=== PATIENT | female | born 1965 | race Caucasian/White ===

== ENCOUNTER 2021-10-05 09:56 | Outpatient (RCR) | payer OTHER, SELFPAY ==
--- NOTE | 2021-10-05 12:33 | PTOPEVAL ---
Thank you for referring Janell Schwab to [facility].? The patient is scheduled to be seen for therapy? 2x/week for 12 visits. Please review, sign, date and return this plan of care ONEIL. I agree with and certify that the following plan of care is medically necessary. Referring Physician Date Admitting Provider: Attending Provider: Octavia Hernadnez NP Referring Provider: *PT Outpatient Evaluation Start: 10/05/21 09:05 Freq: Status: Active Protocol: Document 10/05/21 09:06 [facility] (Rec: 10/05/21 12:26 [facility] [id number]) Therapy Assessment Status Assessment Status Assessment Status Evaluation Evaluation Information Problem Diagnosis Pain in R leg Onset 04/15/21 Subjective Information Pt reports that in April, Query Text:As Reported By Patient/ she was in a hotel for work Family where the toilet overflowed. Her right leg slipped in the water and she noticed a pop and pain right away, however, minimal swelling. Xrays showed no fractures but she is concerned for some kind of muscle or soft tissue injury. She reports near constant pain that increases with motion, especially when walking, using stairs, getting up from sitting, or rotating on her knee while standing. She reports this pain in her lateral knee with occasional pain into her hip. Also reports occasional clicking in knee that is new since the injury. Occasionally interrupts sleep, and generally feels worse at night when she has been on her feet all day. Reports history of FM. Reports it is slightly better from start. Likes to walk with dogs and work out in her spare time. Would like to be able to return to these activities as well as be able to wear high heels again. 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
--- NOTE | 2021-11-07 12:54 | PTOPEVAL ---
Thank you for referring Janell Schwab to [facility].? The patient is scheduled to be seen for therapy? 1-2x/week for 7 visits. Please review, sign, date and return this plan of care ONEIL. I agree with and certify that the following plan of care is medically necessary. Referring Physician Date Admitting Provider: Attending Provider: Octavia Hernandez NP Referring Provider: *PT Outpatient Evaluation Start: 10/05/21 09:05 Freq: Status: Active Protocol: Document 11/07/21 10:03 [facility] (Rec: 11/07/21 12:53 [facility] [id number]) Therapy Assessment Status Assessment Status Assessment Status Progress Evaluation Information Problem Diagnosis Pain in R leg Onset 04/15/21 Subjective Information Pt reports she has continued Query Text:As Reported By Patient/ soreness in her R leg. Usually Family her soreness after each session is pretty short-lived, but after this most recent session it lasted all weekend. She is still waiting on getting an MRI done. Pain Assessment Timing of Pain Assessment Timing of Pain Assessment Pre-Treatment Pain Scale Pain Scale Used Numeric (1 - 10) Self Report Pain Assessment Right Knee(s) Reported Pain Level 5 Pain Score Pain Score 5: Self Report Interventions Used Interventions Used By Clinicians Activity or ADL's,Education, Exercise Lower Extremity Range of Motion General Lower Extremity Range of Motion Gross Lower Extremity Range of Motion L knee AROM: 0- 134 Comments R knee AROM: 0 -126 Lower Extremity Muscle Strength Testing General Lower Extremity Strength Gross Lower Extremity Strength Bilateral hip flexion: 4+/5 L knee extension: 5/5 R knee extension: 4+/5, slightly painful L knee flexion: 5/5 R knee flexion: 4+/5 Bilateral ankle dorsiflexion: 5/5 L ankle plantarflexion: 15 reps R ankle plantarflexion: 10 reps, painful L hip abd: 4+/5 R hip abd: 4+/5, painful Bilateral hip ext: 4+/5 Palpation Assessment Palpation Palpation TTP and hypertonicity R TFL and ITB Lumbar P-A's L1-S1 normal Special Tests-Lower Extremity Knee Special Tests Anterior
== END 2021-12-01 14:43 | disposition home or self-care (01) ==
LOC: CHSPT 09:56
PROVIDERS: PCP Nurse Practitioner Family; Visit Provider Nurse Practitioner Family
DX: M79.604 Pain in right leg (principal)
CPT/HCPCS: 97110; 97140; 97161; 97530

== ENCOUNTER 2021-10-30 10:51 | Outpatient (CLI) | payer OTHER, SELFPAY ==
--- NOTE | ~2021-10-30 | MM_ITS ---
EXAMINATION: MM scrn ponce implant BI w meliza HISTORY: Screening mammogram TECHNIQUE: Craniocaudal and mediolateral oblique 3-D tomosynthesis images with implant displacement a nd synthetic 2-D images were generated. Craniocaudal and mediolateral oblique views of the breasts wi thout implant displacement were obtained using full field digital mammography. CAD analysis was submi tted and interpreted. COMPARISON: No prior mammogram is available for comparison at this institution. BREAST PARENCHYMAL COMPOSITION: There are scattered areas of fibroglandular density. FINDINGS: There are asymmetries in the subareolar location of both breasts. There is no evidence of s uspicious mass, calcification, or architectural distortion to suggest malignancy in either breast. Th ere has been no suspicious interval change. IMPRESSION: 1. Bilateral subareolar asymmetries. 2. Additional mammographic views and possible breast ultrasound are recommended. BI-RADS Category 0: Incomplete: Needs additional imaging evaluation. Reviewed, dictated and finalized at location A. IMPRESSION: 1. Bilateral subareolar asymmetries. 2. Additional mammographic views and possible breast ultrasound are recommended . BI-RADS Category 0: Incomplete: Needs additional imaging evaluation.
== END 2021-10-30 10:52 | disposition home or self-care (01) ==
LOC: CHSIMG 10:54
PROVIDERS: PCP Nurse Practitioner Family; Visit Provider Nurse Practitioner Family
DX: Z12.31 Encounter for screening mammogram for malignant neoplasm of breast (principal)
CPT/HCPCS: 77063; 77067

== ENCOUNTER 2021-11-02 09:24 | Outpatient (CLI) | payer OTHER, SELFPAY ==
--- NOTE | ~2021-11-02 | MMUS_ITS ---
EXAMINATION: MM diag ponce implant BI w meliza, US breast BI limited HISTORY: Follow-up breast asymmetries TECHNIQUE: Additional 3-D tomosynthesis images of the breasts were performed and synthetic 2-D images were generated. CAD analysis was submitted and interpreted. High resolution limited bilateral breast ultrasound was performed. COMPARISON: 10/30/2021 BREAST PARENCHYMAL COMPOSITION: Breast composed of scattered areas of fibroglandular density FINDINGS: MAMMOGRAPHIC FINDINGS: There are no suspicious masses, calcifications or architectural distortion in either breast to sugges t malignancy. ULTRASOUND: Limited bilateral breast ultrasound: In the subareolar location of the right breast there is a 4 mm c yst. In the left breast at 10:00, 2 cm from the nipple there is a 4 mm cyst. No suspicious masses in either breast to suggest malignancy. IMPRESSION: 1. No evidence for malignancy in either breast. 2. Routine yearly screening mammogram and regular clinical breast examination are recommended. BI-RADS Category 2: Benign finding(s). Reviewed, dictated and finalized at location L. IMPRESSION: 1. No evidence for malignancy in either breast. 2. Routine yearly screening mammogram and regular clinical breast examination a re recommended. BI-RADS Category 2: Benign finding(s).
== END 2021-11-02 09:25 | disposition home or self-care (01) ==
PROVIDERS: PCP Nurse Practitioner Family; Visit Provider Nurse Practitioner Family
DX: Z12.31 Encounter for screening mammogram for malignant neoplasm of breast (principal)
CPT/HCPCS: 76642; 77062; 77066; G0279

== ENCOUNTER 2021-11-08 10:41 | Outpatient (CLI) | payer OTHER, SELFPAY ==
--- NOTE | ~2021-11-08 | XR_ITS ---
XR knee RT 3V 11/08/2021 11:11 Indication: Right knee pain Procedure: 4 views right knee Comparison: No prior studies for comparison. Findings: There is tricompartment osteoarthritis of the right knee, most advanced in the patellofemor al compartment. No fracture, subluxation or dislocation. No significant joint effusion. No foreign jerald dies. Impression: 1: Tricompartment osteoarthritis of the right knee. Reviewed, dictated and finalized at location L. Impression: 1: Tricompartment osteoarthritis of the right knee.
== END 2021-11-08 10:42 | disposition home or self-care (01) ==
LOC: CHSIMG 10:43
PROVIDERS: PCP Nurse Practitioner Family; Visit Provider Nurse Practitioner Family
DX: M79.604 Pain in right leg (principal)
CPT/HCPCS: 73562

== ENCOUNTER 2021-11-15 10:35 | Outpatient (CLI) | payer OTHER, SELFPAY ==
[2021-11-15 10:44] LABS: Basophils Absolute Auto 0.07 K/mm3 (0.00-0.10); Eosinophils Absolute Auto 0.23 K/mm3 (0.02-0.50); Eosinophils Percent Auto 3.1 % (1.0-6.0); Hematocrit 42.2 % (35.0-49.0); Hemoglobin 13.3 g/dL (12.0-15.0); Immature Granulocyte Absolute 0.01 K/mm3 (0.00-0.00); Immature Granulocyte Percent A 0.1 % (0.0-0.0); Lymphocytes Absolute Auto 2.38 K/mm3 (1.10-4.50); Lymphocytes Percent Auto 32.6 % (18.0-42.0); Mean Corpuscular HGB Conc 31.5 g/dL (32.0-36.0); Mean Corpuscular Hemoglobin 26.7 pg (27.0-31.0); Mean Corpuscular Volume 84.7 fL (78.0-102.0); Mean Platelet Volume 10.2 fl (9.2-11.8); Monocytes Absolute Auto 0.42 K/mm3 (0.10-0.90); Monocytes Percent Auto 5.7 % (2.0-11.0); Neutrophils Absolute Auto 4.2 K/mm3 (1.7-7.2); Neutrophils Percent Auto 57.5 % (50.0-70.0); Platelet Count Result 348 K/mm3 (150-420); Red Blood Count 4.98 M/mm3 (4.20-5.40); Red Cell Distribution Width 13.4 % (11.6-14.4); White Blood Count 7.3 K/mm3 (4.8-10.8)
[2021-11-15 11:20] LABS: Alanine Aminotransferase 20 U/L (14-59); Albumin Level 3.7 g/dL (3.4-5.0); Alkaline Phosphatase 82 U/L (46-116); Anion Gap 10 mmol/L (8-16); Aspartate Amino Transferase 12 U/L (15-37); Bilirubin,Total 0.2 mg/dL (0.00-1.00); Blood Urea Nitrogen 22 mg/dL (7-18); Calcium 9.2 mg/dL (8.5-10.1); Carbon Dioxide 28 mmol/L (21-32); Chloride 105 mmol/L (98-108); Cholesterol 208 mg/dL (0-200); Estimated Glomerular Filt Rate 55; Glucose 101 mg/dL (70-99); HDL Direct 61 mg/dL (40-60); LDL Cholesterol Calculated 130 mg/dL (<130); Osmolality Calculated 299 mOsm/kg (285-295); Potassium 4.4 mmol/L (3.5-5.1); Sodium 143 mmol/L (136-145); Total Protein 6.9 g/dL (6.4-8.2); Triglycerides 87 mg/dL (0-150)
== END 2021-11-15 10:36 | disposition home or self-care (01) ==
LOC: CHSLAB 10:36
PROVIDERS: PCP Nurse Practitioner Family; Visit Provider Nurse Practitioner Family
DX: I10 Essential (primary) hypertension (principal)
CPT/HCPCS: 36415; 80053; 80061; 85025

== ENCOUNTER 2022-02-01 07:27 | Outpatient (CLI) | payer OTHER, SELFPAY ==
--- NOTE | ~2022-02-01 | XR_ITS ---
EXAMINATION: XR shoulder RT min 2V INDICATION: Right shoulder pain TECHNIQUE: Four views of the right shoulder are submitted. COMPARISON: None FINDINGS: Normal alignment. No fracture. Glenohumeral and acromioclavicular joint spaces are normal. Soft tissues are unremarkable. IMPRESSION: 1. No acute osseous abnormality. Reviewed, dictated and finalized at location B.
--- NOTE | ~2022-02-01 | MR_ITS ---
EXAMINATION: MR knee RT wo con DATE: 02/01/2022 08:38 INDICATION: Right knee pain. TECHNIQUE: Magnetic resonance imaging (MRI) of the right knee was performed without intravenous contr ast. Sequences included axial PD-weighted FS FSE, coronal PD-weighted FSE and PD-weighted FS FSE, sag ittal PD-weighted FSE, and sagittal T2-weighted FS FSE. COMPARISON: Right knee radiographs 11/08/2021 FINDINGS: Medial compartment: There is a radial tear of posterior horn of medial meniscus. There is shallow partial-thickness carti haris loss of tibial condyle. There is shallow partial-thickness cartilage loss of femoral condyle, wo rst at the central articular surface. Osteophytes are noted. Lateral compartment: Lateral meniscus is normal. There is cartilage surface irregularity of femoral condyle and tibial con dyle. Osteophytes are noted. Patellofemoral compartment: There is full-thickness cartilage loss of patellar lateral facet and median ridge with mild subchondr al edema-like marrow signal intensity. There is partial-thickness cartilage loss of patellar medial f acet. There is full-thickness cartilage loss of lateral trochlea with mild subchondral edema-like mar row signal intensity. There is partial-thickness cartilage loss of central and medial trochlea. Osteo phytes are noted. Ligaments and tendons: Anterior cruciate ligament is normal. There are changes of prior sprain of posterior cruciate ligamen t characterized by increased signal intensity. There are changes of prior sprains of medial collatera l ligament and fibular collateral ligament characterized by increased signal intensity proximally. Th ere is mild patellar tendinopathy. Fluid: There is a small knee joint effusion. There is trace fluid in a Crocker's cyst. There is mild prepatell ar and superficial infrapatellar bursitis. IMPRESSION: 1. Severe chondrosis of patellofemoral compartment and mild chondrosis of medial and lateral compartm ents. 2. Tear of medial meniscus. Reviewed, dictated and finalized at location A. IMPRESSION: 1. Severe chondrosis of patellofemoral compartment and mild chondrosis of media l and lateral compartments. 2. Tear of medial meniscus.
== END 2022-02-01 07:28 | disposition home or self-care (01) ==
LOC: CHSIMG 07:28
PROVIDERS: PCP Family Medicine; Visit Provider Family Medicine
DX: M25.511 Pain in right shoulder (principal); M25.561 Pain in right knee
CPT/HCPCS: 73030; 73721

== ENCOUNTER 2022-02-12 09:48 | Outpatient (RCR) | payer OTHER, SELFPAY ==
--- NOTE | 2022-02-12 11:34 | PTOPEVAL1 ---
Assessment and note entered by Zully Morris DPT Evaluation Information Assessment Status Evaluation Diagnosis R shoulder pain Onset 02/05/2022 Subjective Information Pt reports that her R shoulder pain started when she fell from her knee pain. She fell on her shoulder and started having pain and pops in her shoulder. She has difficulty with sleeping on her R shoulder and reaching behind or overhead. She reports a lot clicking/cracking and pain. Pt reports some numbness/tingling in her R hand ( whole hand). Pt reports weakness especially when lifting objects like groceries. Pt reports that pain does not matter on time of day. Reported Pain Level Pain Score 5: Self Report Assessment PT Clinical Summary Pt presents to physical therapy with R shoulder pain, decreased mobility, and decreased strength. She presents with signs and symptoms consistent with potential differential diagnosis of shoulder impingement syndrome or labral involvement. 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 She was provided with an HEP focused on improving mobility and strength within her tolerance. She will benefit from skilled PT to facilitate symptom relief, improve the aforementioned impairments, and return to functional and recreational activities. Plan of Care Interventions Electrical Stimulation,Hot Pack/Cold Pack,Manual Therapy,Patient/Caregiver Educati,Therapeutic Activities,Therapeutic Exercise PT Services Indicated Yes Treatment Frequency and 2x week for 8 visits Duration These treatments will address the objective and functional deficits as defined above. The patient will be advanced safely and appropriately in order for the patient to progress towards his/her prior level of function. Additional exercises will be introduced and as well as a comprehensive home exercise program upon discharge, if needed, ?to ensure carryover of functional gains achieved in the clinic. This treatment plan has been reviewed and agreement upon by the patient.
== END 2022-03-12 23:59 | disposition home or self-care (01) ==
LOC: CHSPT 09:48
PROVIDERS: PCP Family Medicine; Visit Provider Family Medicine
DX: M25.511 Pain in right shoulder (principal)
CPT/HCPCS: 97014; 97110; 97140; 97161; G0283

== ENCOUNTER 2022-03-28 13:02 | Outpatient (CLI) | payer OTHER, SELFPAY ==
--- NOTE | ~2022-03-28 | XR_ITS ---
Clinical Indication: Preoperative evaluation, covid 19 infection PA and lateral views of the chest: Comparison: None Findings: The lungs are clear, without evidence of focal consolidation or pleural effusion. Cardiome diastinal silhouette is within normal limits. Cervical spine fixation hardware noted. Impression: Clear lungs. 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
[2022-03-28 13:16] LABS: Basophils Absolute Auto 0.06 K/mm3 (0.00-0.10); Basophils Percent Auto 0.8 % (0.0-1.0); Eosinophils Absolute Auto 0.27 K/mm3 (0.02-0.50); Eosinophils Percent Auto 3.6 % (1.0-6.0); Hematocrit 37.4 % (35.0-49.0); Immature Granulocyte Absolute 0.03 K/mm3 (0.00-0.00); Immature Granulocyte Percent A 0.4 % (0.0-0.0); Lymphocytes Percent Auto 29.1 % (18.0-42.0); Mean Corpuscular HGB Conc 32.1 g/dL (32.0-36.0); Mean Corpuscular Hemoglobin 26.4 pg (27.0-31.0); Mean Corpuscular Volume 82.4 fL (78.0-102.0); Mean Platelet Volume 10.1 fl (9.2-11.8); Monocytes Percent Auto 5.3 % (2.0-11.0); Neutrophils Absolute Auto 4.6 K/mm3 (1.7-7.2); Neutrophils Percent Auto 60.8 % (50.0-70.0); Platelet Count Result 304 K/mm3 (150-420); Red Blood Count 4.54 M/mm3 (4.20-5.40); Red Cell Distribution Width 13.5 % (11.6-14.4); White Blood Count 7.6 K/mm3 (4.8-10.8)
[2022-03-28 13:28] LABS: Add Urine Microscopic? YES; Appearance Urine Clear (Clear); Bilirubin Urine Negative (Negative); Blood Urine 1+ (Negative); Color Urine Yellow (Yellow); Glucose Urine UA Negative (Negative); Ketones Urine Negative (Negative); Leukocyte Esterase Ur Negative LEU/UL (Negative); Nitrate Urine Negative (Negative); Protein Urine Negative (Negative); Specific Grav Ur >= 1.030 (1.010-1.020); Urobilinogen Urine 0.2 mg/dL (0.2-1.0)
[2022-03-28 13:38] LABS: Squamous Epithelial Cell Urine Moderate /hpf (Few); WBC Urine None seen /hpf (0-3)
[2022-03-28 13:39] LABS: Bacteria Urine 1+ /hpf
[2022-03-28 14:04] LABS: Alanine Aminotransferase 21 U/L (14-59); Albumin Level 3.5 g/dL (3.4-5.0); Alkaline Phosphatase 82 U/L (46-116); Anion Gap 7 mmol/L (8-16); Aspartate Amino Transferase 17 U/L (15-37); Bilirubin,Total 0.1 mg/dL (0.00-1.00); Blood Urea Nitrogen 26 mg/dL (7-18); Calcium 8.8 mg/dL (8.5-10.1); Carbon Dioxide 29 mmol/L (21-32); Chloride 105 mmol/L (98-108); Cholesterol 205 mg/dL (0-200); Estimated Glomerular Filt Rate 59; Glucose 105 mg/dL (70-99); HDL Direct 52 mg/dL (40-60); LDL Cholesterol Calculated 110 mg/dL (<130); NT Pro B Type Natriuretic Pept 76 pg/mL (0-125); Osmolality Calculated 296 mOsm/kg (285-295); Potassium 4.5 mmol/L (3.5-5.1); Sodium 141 mmol/L (136-145); Total Protein 6.6 g/dL (6.4-8.2); Triglycerides 215 mg/dL (0-150)
== END 2022-03-28 13:03 | disposition home or self-care (01) ==
LOC: CHSLAB 13:04
PROVIDERS: PCP Family Medicine; Visit Provider Nurse Practitioner Family
DX: Z01.818 Encounter for other preprocedural examination (principal)
CPT/HCPCS: 36415; 71046; 80053; 80061; 81001; 83880; 85025

== ENCOUNTER 2022-05-21 15:14 | Outpatient (RCR) | payer BC, SELFPAY ==
--- NOTE | 2022-05-21 16:05 | PTOPEVAL1 ---
Assessment and note entered by Kenny Sanabria Evaluation Information Assessment Status Evaluation Diagnosis s/p right knee arthroscopy Onset 05/10/22 Subjective Information Pt. reports that she underwent knee scope on . She states that she was on her feet a lot yesterday and increased her pain. She reports that prior to surgery her ability to go up and down stairs was declining. She reports that her job requires her to be at a desk mostly, but she is required to travel on occasion. She reports that she cannot currently walk a significant distance and requires a cane with ambulation. She reports that her goal is to walk normally and get rid of her cane. Reported Pain Level Pain Score 6: Self Report Assessment PT Clinical Summary Pt. is a 56 year old female who enters the clinic 10 days post right knee arthroscopy. She presents with impaired gait, impaired l.e. strength, impaired ROM and pain on on this date. Continued skilled PT is indicated in order to improve these areas to allow the pt. to be able to complete all IADL's with improved comfort and efficiency. Plan of Care Interventions Electrical Stimulation,Gait Training,Hot Pack/Cold Pack,Manual Therapy,Neuro Re-education, Therapeutic Activities,Therapeutic Exercise PT Services Indicated Yes Treatment Frequency and 2x/week x 12 visits Duration These treatments will address the objective and functional deficits as defined above. The patient will be advanced safely and appropriately in order for the patient to progress towards his/her prior level of function. Additional exercises will be introduced and as well as a comprehensive home exercise program upon discharge, if needed, ?to ensure carryover of functional gains achieved in the clinic. This treatment plan has been reviewed and agreement upon by the patient.
== END 2022-05-28 15:10 | disposition home or self-care (01) ==
LOC: CHSPT 15:14
PROVIDERS: Visit Provider Orthopaedic Surgery
DX: M70.61 Trochanteric bursitis, right hip (principal); M17.11 Unilateral primary osteoarthritis, right knee; M76.31 Iliotibial band syndrome, right leg; S83.231D Complex tear of medial meniscus, current injury, right knee, subsequent encounter; Z98.890 Other specified postprocedural states
CPT/HCPCS: 97014; 97110; 97161; G0283

== ENCOUNTER 2022-08-08 09:35 | Outpatient (CLI) | payer OTHER, BC, SELFPAY ==
[2022-08-08 09:50] LABS: Hematocrit 38.3 % (35.0-49.0); Hemoglobin 12.2 g/dL (12.0-15.0); Mean Corpuscular HGB Conc 31.9 g/dL (32.0-36.0); Mean Corpuscular Hemoglobin 26.7 pg (27.0-31.0); Mean Corpuscular Volume 83.8 fL (78.0-102.0); Mean Platelet Volume 10.3 fl (9.2-11.8); Platelet Count Result 303 K/mm3 (150-420); Red Blood Count 4.57 M/mm3 (4.20-5.40); Red Cell Distribution Width 13.9 % (11.6-14.4); White Blood Count 7.4 K/mm3 (4.8-10.8)
[2022-08-08 10:25] LABS: Thyroid Stimulating Hormone Reflex 3.03 u/IU/mL (0.36-3.74)
[2022-08-08 10:39] LABS: Alanine Aminotransferase 19 U/L (14-59); Albumin Level 3.7 g/dL (3.4-5.0); Alkaline Phosphatase 100 U/L (46-116); Anion Gap 6 mmol/L (8-16); Aspartate Amino Transferase 14 U/L (15-37); Bilirubin,Total 0.2 mg/dL (0.00-1.00); Blood Urea Nitrogen 23 mg/dL (7-18); Carbon Dioxide 30 mmol/L (21-32); Chloride 104 mmol/L (98-108); Estimated Glomerular Filt Rate > 60; Folic Acid 8.5 ng/mL (8.6->20); Glucose 103 mg/dL (70-99); Osmolality Calculated 293 mOsm/kg (285-295); Potassium 4.2 mmol/L (3.5-5.1); Sodium 140 mmol/L (136-145); Total Protein 6.9 g/dL (6.4-8.2); Vitamin B12 584 pg/mL (193-986)
== END 2022-08-08 09:36 | disposition home or self-care (01) ==
LOC: CHSLAB 09:37
PROVIDERS: PCP Family Medicine; Visit Provider Family Medicine
DX: E11.9 Type 2 diabetes mellitus without complications (principal); E53.8 Deficiency of other specified B group vitamins; R53.83 Other fatigue
CPT/HCPCS: 36415; 80053; 82607; 82746; 84443; 85027

== ENCOUNTER 2023-07-26 12:23 | Outpatient (CLI) | payer OTHER, SELFPAY | END 2023-07-26 12:24 | disposition home or self-care (01) | LOC: CHSLAB 12:25 | PROVIDERS: PCP Family Medicine; Visit Provider Family Medicine | DX: K52.9 Noninfective gastroenteritis and colitis, unspecified (principal) | CPT/HCPCS: 87177; 87209 ==

== ENCOUNTER 2023-07-31 14:05 | Outpatient (CLI) | payer BC, OTHER, SELFPAY ==
[2023-07-31 14:25] LABS: Basophils Absolute Auto 0.03 K/mm3 (0.00-0.10); Basophils Percent Auto 0.4 % (0.0-1.0); Eosinophils Percent Auto 2.7 % (1.0-6.0); Hematocrit 38.3 % (35.0-49.0); Immature Granulocyte Absolute 0.03 K/mm3 (0.00-0.00); Immature Granulocyte Percent A 0.4 % (0.0-0.0); Lymphocytes Absolute Auto 1.74 K/mm3 (1.10-4.50); Lymphocytes Percent Auto 23.5 % (18.0-42.0); Mean Corpuscular HGB Conc 31.3 g/dL (32-36); Mean Corpuscular Volume 82.9 fL (78.0-102.0); Mean Platelet Volume 9.9 fl (9.2-11.8); Monocytes Absolute Auto 0.34 K/mm3 (0.10-0.90); Monocytes Percent Auto 4.6 % (2.0-11.0); Neutrophils Absolute Auto 5.05 K/mm3 (1.70-7.20); Neutrophils Percent Auto 68.4 % (50.0-70.0); Platelet Count Result 318 K/mm3 (150-420); Red Blood Count 4.62 M/mm3 (4.20-5.40); Red Cell Distribution Width 14.3 % (11.6-14.4); White Blood Count 7.4 K/mm3 (4.8-10.8)
[2023-07-31 15:25] LABS: Thyroid Stimulating Hormone Reflex 2.06 u/IU/mL (0.36-3.74)
[2023-07-31 15:37] LABS: Alanine Aminotransferase 24 U/L (14-59); Albumin Level 3.6 g/dL (3.4-5.0); Alkaline Phosphatase 94 U/L (46-116); Anion Gap -8 mmol/L (4-12); Aspartate Amino Transferase 16 U/L (15-37); Bilirubin,Total 0.2 mg/dL (0.00-1.00); Blood Urea Nitrogen 14 mg/dL (7-18); Calcium 8.2 mg/dL (8.5-10.1); Carbon Dioxide 33 mmol/L (21-32); Chloride 97 mmol/L (98-108); Estimated Glomerular Filt Rate 58; Folic Acid 6.4 ng/mL (8.6->20); Glucose 97 mg/dL (70-99); Osmolality Calculated 254 mOsm/kg (285-295); Potassium 3.6 mmol/L (3.5-5.1); Sodium 122 mmol/L (136-145); Vitamin B12 538 pg/mL (193-986)
[2023-08-02 05:19] LABS: Vitamin D 25 Hydroxy 18 ng/mL (30-100)
== END 2023-07-31 14:06 | disposition home or self-care (01) ==
PROVIDERS: PCP Family Medicine; Visit Provider Family Medicine
DX: E53.8 Deficiency of other specified B group vitamins (principal); E03.9 Hypothyroidism, unspecified; I10 Essential (primary) hypertension
CPT/HCPCS: 36415; 80053; 82306; 82607; 82746; 84443; 85025

== ENCOUNTER 2023-08-01 11:24 | Emergency (ER) | payer OTHER, BC, SELFPAY ==
--- NOTE | ~2023-08-01 | XR_ITS ---
Portable chest x-ray Comparison: None Clinical History: Nausea and vomiting Findings: Lungs are clear, without focal consolidation or pleural effusion. Cardiomediastinal silho uette is stable. Bones and soft tissues are unremarkable, aside from cervical spine fixation hardware . Impression: Clear lungs. Reviewed, dictated and finalized at location . Impression: Clear lungs.
[2023-08-01 11:24] VITALS: BP 158/96; PULSE 88; RESP 20; TEMP 36.3; O2SAT 96
--- NOTE | 2023-08-01 11:45 | ECG_ITS ---
SEE SCANNED COPY FOR CONFIRMED REPORT MTDD
[2023-08-01] MEDS: SODIUM CHLORIDE 0.9% IV 1,000 ML 150 ML IV CONT (11:57)
[2023-08-01 12:00] VITALS: BP 114/87; PULSE 81; RESP 17; O2SAT 95
[2023-08-01 12:11] LABS: Hematocrit 40.2 % (35.0-49.0); Hemoglobin 12.6 g/dL (12.0-15.0); Mean Corpuscular HGB Conc 31.3 g/dL (32-36); Mean Corpuscular Hemoglobin 25.6 pg (27.0-31.0); Mean Corpuscular Volume 81.5 fL (78.0-102.0); Mean Platelet Volume 10.5 fl (9.2-11.8); Platelet Count Result 356 K/mm3 (150-420); Red Blood Count 4.93 M/mm3 (4.20-5.40); Red Cell Distribution Width 14.3 % (11.6-14.4)
[2023-08-01 12:15] LABS: White Blood Count 22.7 K/mm3 (4.8-10.8)
[2023-08-01 12:30] VITALS: BP 119/71; PULSE 77; RESP 17; O2SAT 95
[2023-08-01 12:32] LABS: Lactic Acid Reflex 1.8 mmol/L (0.4-2.0)
[2023-08-01 12:36] LABS: Magnesium 2.2 mg/dL (1.8-2.4)
[2023-08-01 12:36] LABS: Alanine Aminotransferase 25 U/L (14-59); Albumin Level 3.7 g/dL (3.4-5.0); Alkaline Phosphatase 101 U/L (46-116); Anion Gap 10 mmol/L (4-12); Aspartate Amino Transferase 15 U/L (15-37); Bilirubin,Total 0.2 mg/dL (0.00-1.00); Blood Urea Nitrogen 21 mg/dL (7-18); Calcium 9.2 mg/dL (8.5-10.1); Carbon Dioxide 27 mmol/L (21-32); Chloride 104 mmol/L (98-108); Estimated CRCL calculation 75 ml/min; Estimated Glomerular Filt Rate 60; Glucose 171 mg/dL (70-99); Osmolality Calculated 299 mOsm/kg (285-295); Potassium 3.9 mmol/L (3.5-5.1); Sodium 141 mmol/L (136-145); Total Protein 7.6 g/dL (6.4-8.2)
[2023-08-01 12:48] LABS: Band Neutrophils Percent 2 % (0-6); Basophils Percent Manual 0 % (0-1); Eosinophils Percent Manual 0 % (1-6); Lymphocytes Absolute Manual 2.72 K/mm3 (1.1-4.5); Lymphocytes Percent Manual 12 % (18-44); Monocytes Absolute Manual 0.68 K/mm3 (0.1-0.90); Monocytes Percent Manual 3 % (3-9); Neutrophils Absolute Manual 19.29 K/mm3 (1.7-7.2); Neutrophils Percent Manual 83 % (46-73); Platelet Estimate Adequate (Adequate); Total Cells Counted 100
[2023-08-01 13:00] VITALS: BP 126/84; PULSE 81; RESP 17; O2SAT 97
[2023-08-01] MEDS: IBUPROFEN 600 MG TABLET PO (13:05)
[2023-08-01 13:24] LABS: Appearance Urine Clear (Clear); Bilirubin Urine Negative (Negative); Blood Urine 1+ (Negative); Color Urine Light Yellow (Yellow); Glucose Urine UA Negative (Negative); Ketones Urine Negative (Negative); Leukocyte Esterase Ur Negative LEU/UL (Negative); Nitrate Urine Negative (Negative); Protein Urine Negative (Negative); Urobilinogen Urine 0.2 mg/dL (0.2-1.0); pH Urine 6.5 (5.0-8.0)
[2023-08-01 13:30] VITALS: BP 148/95; PULSE 78; RESP 17; O2SAT 95
[2023-08-01 13:32] LABS: Add Urine Microscopic? YES; RBC Urine 0-2 /hpf (0-2); WBC Urine None seen /hpf (0-3)
[2023-08-01 13:33] LABS: Bacteria Urine Trace /hpf; Squamous Epithelial Cell Urine Few /hpf (Few)
--- NOTE | 2023-08-01 13:38 | ED.RECABL ---
HPI - Recheck/Abnormal Lab/Rx General Chief Complaint: Recheck/Abnormal Lab/Rx Stated Complaint: low sodium, lethargy Time Seen by Provider: 08/01/23 11:37 Source: patient Mode of arrival: ambulatory Limitations: no limitations History of Present Illness HPI narrative: this is a 52 female with a history of migraines presents today after she had a blood draw yesterday which showed a serum sodium of 122, the patient over the past month has been having some loose stools with crampy abdominal pain nausea vomiting. Patient currently has no symptoms there is no abdominal pain there is no nausea or vomiting no diarrhea or constipation currently There is no chest pain no shortness of breath no fever chills no dysuria or flank pain. Patient was sent by her primary after concern of a serum sodium of 122. complaint: abnormal lab Initial visit (ago): day(s) Related Data Allergies Allergy/AdvReac Type Severity Reaction Status Date / Time No Known Allergies Allergy Verified 08/01/23 11:39 Review of Systems Review of Systems: All systems reviewed & are unremarkable except as noted in HPI and below PMFSH Past Medical History Medical History Right leg pain Surgical History Surgical History H/O cervical discectomy H/O: section History of foot surgery right History of hysterectomy Only has right ovary Social History Social History Smoking status: Never smoker Alcohol intake: current Alcohol use details: social Substance use: never Substance use type: does not use Living arrangements: with family Additional living arrangements comments: Lives with fiance Gender identity (if verbalized by the patient): Female Exam Const: General: healthy appearing and no acute distress Nutritional Appearance: well nourished Orientation/consciousness: patient oriented x3 Limitations: no limitations HENMT: Head: normal to inspection Chest: Chest palpation & inspection: normal inspection of the chest Resp: Effort & Inspection: normal respiratory effort Auscultation: clear to auscultation bilaterally GI: GI Palp: Yes Soft to palpation Auscultation: normal bowel sounds : General: Yes bladder normal to palpation Skin: General skin exam: normal color Rashes: no rashes Neuro: General: patient oriented x3 Cranial nerves: Yes Nystagmus not present Extrem: General: normal to inspection, no clubbing, cyanosis or edema and no pedal edema Psych: Mental Status: mental status grossly normal Course Course Emergency Course: Patient had repeat blood work that showed a serum sodium 141, [place] [address] with no left shift no fever chills no dysuria, with a normal UA normal chest x-ray patient has stool studies that were performed pending by her primary and advised to contact her primary for results. Vital Signs Vital signs: Vital Signs Temperature 36.3 C L 08/01/23 11:24 Pulse Rate 88 08/01/23 11:24 Respiratory Rate 20 08/01/23 11:24 Blood Pressure 158/96 H 08/01/23 11:24 Pulse Oximetry 96 08/01/23 11:24 Oxygen Delivery Room Air 08/01/23 11:24 Temperature 36.3 C L 08/01/23 11:24 Pulse Rate 88 08/01/23 11:24 Respiratory Rate 20 08/01/23 11:24 Blood Pressure 158/96 H 08/01/23 11:24 Pulse Oximetry 96 08/01/23 11:24 Oxygen Delivery Room Air 08/01/23 11:24 MDM - Recheck/Abnormal Lab/Rx Lab Data 08/01/23 12:03 08/01/23 12:03 Labs: Lab Results 08/01/23 08/01/23 08/01/23 Range/Units 12:03 12:05 13:20 WBC 22.7 H* (4.8-10.8) K/mm3 RBC 4.93 (4.20-5.40) M/mm3 Hgb 12.6 (12.0-15.0) g/dL Hct 40.2 (35.0-49.0) % MCV 81.5 (78.0-102.0) fL MCH 25.6 L (27.0-31.0) pg MCHC 31.3 L (32-36) g/dL RDW 14.3 (11.6-14.4)
--- NOTE | 2023-08-01 13:44 | PC.NURSE ---
On 08/01/23, the student, Kaitlin Santana, provided care and completed [facility] documentation on this patient. I have reviewed the student's documentation and agree with the findings.
[2023-08-01 13:49] VITALS: BP 169/92; PULSE 71; RESP 17; TEMP 36.7; O2SAT 95
--- NOTE | 2023-08-07 13:33 | PC.NURSE ---
FINAL BLOOD CULTURE RESULTS X2: NO GROWTH AFTER 5 DAYS
== END 2023-08-01 13:49 | disposition home or self-care (01) ==
PROVIDERS: Emergency Provider Emergency Medicine; PCP Family Medicine
DX: K52.9 Noninfective gastroenteritis and colitis, unspecified (principal)
CPT/HCPCS: 36415; 71045; 80053; 81001; 83605; 83735; 85025; 87040; 93005; 96360; 96361; 99283; A9270; J7030

== ENCOUNTER 2023-09-26 00:10 | Day surgery (SDC) | payer BC, SELFPAY ==
[2023-09-11 13:54] VITALS: BMI 30.7
[2023-09-26 09:17] VITALS: BP 147/81; PULSE 72; RESP 18; TEMP 36.1; O2SAT 97
[2023-09-26] MEDS: LACTATED RINGERS 1,000 ML 150 ML IV CONT (09:29)
--- NOTE | 2023-09-26 09:35 | WPDANESEPPF ---
Anes - Initial Pre Proc Eval Procedure: Operation Date: 09/26/23 10:30 Proposed Procedures p Esophagogastroduodenoscopy & Colonoscopy - Steven Silva MD Date/Time: 09/26/23 09:35 Surgeon: Steven Silva MD Pre Op Diagnosis: Family Hx. Colon CA Patient Data Age: 58 Gender: F Height: 1.68 m Weight: 111.4 kg Last Vital Signs Temp 97 F L 09/26/23 09:17 Pulse 72 09/26/23 09:17 Resp 18 09/26/23 09:17 BP 147/81 H 09/26/23 09:17 Pulse Ox 97 09/26/23 09:17 O2 Del Method Room Air 09/26/23 09:17 Allergies Allergy/AdvReac Type Severity Reaction Status Date / Time No Known Allergies Allergy Verified 09/26/23 09:16 Home Medications Medication Instructions Recorded Confirmed Type tizanidine 4 mg tablet See Rx Instructions .Route 01/17/23 09/11/23 Rx .COMPLEX #10 tabs metoprolol tartrate 50 mg tablet See Rx Instructions .Route 07/08/23 09/11/23 Rx .COMPLEX #180 tabs quetiapine 400 mg tablet See Rx Instructions .Route 07/08/23 09/11/23 Rx .COMPLEX #90 tabs ondansetron 4 mg disintegrating 4 mg PO Q6H PRN nausea and 08/01/23 09/11/23 Rx tablet vomiting #14 tabs cholecalciferol (vitamin D3) 1,250 1,250 mcg PO WEEKLY #14 caps 08/02/23 09/11/23 Rx mcg (50,000 unit) capsule sumatriptan succinate 100 mg tablet See Rx Instructions .Route 08/07/23 09/11/23 Rx .COMPLEX #9 tabs albendazole 200 mg tablet 400 mg PO .COMPLEX #2 tabs 09/04/23 09/11/23 Rx diclofenac sodium 1 % topical gel 2 g topical QID #100 grams 09/04/23 09/11/23 Rx (Voltaren Arthritis Pain) lorazepam 1 mg tablet 1 mg PO DAILY PRN anxiety #20 tabs 09/04/23 09/11/23 Rx venlafaxine 75 mg capsule,extended 75 mg PO DAILY 09/11/23 09/11/23 History release 24 hr Patient hx anesthesia problems: none Family hx anesthesia problems: none Results Review: All pre-operative results and documents have been reviewed as part of the pre-operative evaluation. [facility] Past Medical History Medical History Right leg pain Surgical History Surgical History H/O cervical discectomy H/O: section History of foot surgery right History of hysterectomy Only has right ovary Social History Social History Smoking status: Never smoker Alcohol intake: current Drinks per week: 1 Alcohol use details: social Substance use: never Substance use type: does not use Living arrangements: with family Additional living arrangements comments: Lives with fiance Gender identity (if verbalized by the patient): Female Spiritual care concerns: No Anes - Eval Final PreProcedure Day of Procedure 09/26/23 09:35 Patient weight: morbidly obese Heart: regular rate and rhythm Lungs: clear to auscultation Airway: Mallampati scale class II Neurological: alert and oriented Last oral intake: >/= 8 hours ASA classification: III Emergent: no Anesthetic plan: proceed Anesthesia type and monitoring: general GIVS and standard monitoring Results Review: All pre-operative results and documents have been reviewed as part of the pre-operative evaluation. Informed Consent: The patient's anesthetic plan and its attendant risks and benefits were discussed with the patient/family/POA. Questions were solicited and answers provided to the satisfaction of the patient/family/POA.
--- NOTE | 2023-09-26 10:03 | PM.HPGS ---
History of Present Illness History of Present Illness Consent: Risks, benefits, and alternatives have been discussed and questions answered. Patient agrees to proceed with procedure. Chief complaint: Family Hx. gastric CA Narrative: Janell Schwab is a 58 year old female here for egd and colon cancer, father had gastric cancer. She has been having intermittent explosive diarrhea, last time had scopes about 7 years ago. Review of Systems Review of Systems: All systems reviewed & are unremarkable except as noted in HPI and below PMFSH Past Medical History Medical History (Updated 09/26/23 @ 10:07 by Steven Silva MD) Diarrhea Right leg pain Surgical History Surgical History H/O cervical discectomy H/O: section History of foot surgery right History of hysterectomy Only has right ovary Social History Social History Smoking status: Never smoker Alcohol intake: current Drinks per week: 1 Alcohol use details: social Substance use: never Substance use type: does not use Living arrangements: with family Additional living arrangements comments: Lives with fiance Gender identity (if verbalized by the patient): Female Spiritual care concerns: No Meds Home Medications and Allergies Home Medications Medication Instructions Recorded Confirmed Type tizanidine 4 mg tablet See Rx Instructions .Route 01/17/23 09/11/23 Rx .COMPLEX #10 tabs metoprolol tartrate 50 mg tablet See Rx Instructions .Route 07/08/23 09/11/23 Rx .COMPLEX #180 tabs quetiapine 400 mg tablet See Rx Instructions .Route 07/08/23 09/11/23 Rx .COMPLEX #90 tabs ondansetron 4 mg disintegrating 4 mg PO Q6H PRN nausea and 08/01/23 09/11/23 Rx tablet vomiting #14 tabs cholecalciferol (vitamin D3) 1,250 1,250 mcg PO WEEKLY #14 caps 08/02/23 09/11/23 Rx mcg (50,000 unit) capsule sumatriptan succinate 100 mg tablet See Rx Instructions .Route 08/07/23 09/11/23 Rx .COMPLEX #9 tabs albendazole 200 mg tablet 400 mg PO .COMPLEX #2 tabs 09/04/23 09/11/23 Rx diclofenac sodium 1 % topical gel 2 g topical QID #100 grams 09/04/23 09/11/23 Rx (Voltaren Arthritis Pain) lorazepam 1 mg tablet 1 mg PO DAILY PRN anxiety #20 tabs 09/04/23 09/11/23 Rx venlafaxine 75 mg capsule,extended 75 mg PO DAILY 09/11/23 09/11/23 History release 24 hr Allergies Allergy/AdvReac Type Severity Reaction Status Date / Time No Known Allergies Allergy Verified 09/26/23 09:16 Vital Signs Vital Signs - 24 hr 09/26/23 09:17 Temperature 97 F L Pulse Rate 72 Respiratory Rate 18 Blood Pressure 147/81 H Pulse Oximetry 97 Oxygen Delivery Room Air Exam Const: General: comfortable and no acute distress HENMT: Face/Nose/Sinus: Normal nares present Eyes: General: appearance normal, both eyes and all related structures Neck: Neck: no JVD Resp: Auscultation: clear to auscultation bilaterally Cardio: Rate: regular rate Rhythm: regular rhythm GI: Inspection: non-distended GI Palp: Yes Soft to palpation Skin: General skin exam: normal color Neuro: General: gait normal Speech: normal speech Extrem: General: normal to inspection Psych: Mental Status: mental status grossly normal Assessment and Plan Assessment and plan (1) Family history of stomach cancer: Code(s): Z80.0 - Family history of malignant neoplasm of digestive organs Status: Acute Assessment and Plan: egd (2) Diarrhea: Code(s): R19.7 - Diarrhea, unspecified Status: Acute Assessment and Plan: colonoscopy will order also stool samples if colonoscopy is normal
--- NOTE | 2023-09-26 10:20 | SUR.OPER ---
EGD ended 1016 colonoscopy started 102
[2023-09-26 10:34] VITALS: BP 110/70; PULSE 68; RESP 18; O2SAT 98
[2023-09-26 10:44] VITALS: BP 112/66; PULSE 68; RESP 18; O2SAT 98
[2023-09-26 10:54] VITALS: BP 117/83; PULSE 66; RESP 22; O2SAT 99
== END 2023-09-26 11:03 | disposition home or self-care (01) ==
PROVIDERS: PCP Family Medicine; Visit Provider Internal Medicine Gastroenterology
PROC: 0DJ08ZZ Inspection of Upper Intestinal Tract, Via Natural or Artificial Opening Endoscopic (ICD-10-PCS; CPT 43235; principal; 2023-09-26 10:30)
DX: R19.7 Diarrhea, unspecified (principal); Z80.0 Family history of malignant neoplasm of digestive organs; E66.01 Morbid (severe) obesity due to excess calories; Z68.39 Body mass index [BMI] 39.0-39.9, adult
CPT/HCPCS: 45380; 43239; 88305; J2001; J2704; J7120

== ENCOUNTER 2023-10-21 09:10 | Outpatient (CLI) | payer BC, SELFPAY | END 2023-10-21 09:11 | disposition home or self-care (01) | LOC: ANHLAB 09:12 | PROVIDERS: PCP Family Medicine; Visit Provider Internal Medicine Gastroenterology | DX: R19.7 Diarrhea, unspecified (principal) | CPT/HCPCS: 87045; 87177; 87209; 87427; 87449 ==

== ENCOUNTER 2023-11-11 14:03 | Outpatient (CLI) | payer BC, SELFPAY ==
--- NOTE | ~2023-11-11 | MM_ITS ---
EXAMINATION: MM screening mammo implant BI HISTORY: Screening mammogram TECHNIQUE: Craniocaudal and mediolateral oblique 3-D tomosynthesis images with implant displacement a nd synthetic 2-D images were generated. Craniocaudal and mediolateral oblique views of the breasts wi thout implant displacement were obtained using full field digital mammography. CAD analysis was submi tted and interpreted. COMPARISON: Comparison to multiple prior studies sequentially, with oldest reviewed study dated 10/30. BREAST PARENCHYMAL COMPOSITION: Not dense: There are scattered areas of fibroglandular density. FINDINGS: There is no evidence of suspicious mass, calcification, or architectural distortion to sugg est malignancy in either breast. There has been no suspicious interval change. IMPRESSION: 1. No mammographic evidence of malignancy. 2. Recommend routine screening mammography in one year. BI-RADS Category 1: Negative Reviewed, dictated and finalized at location B.
== END 2023-11-11 14:04 | disposition home or self-care (01) ==
LOC: CHSIMG 14:06
PROVIDERS: PCP Family Medicine; Visit Provider Obstetrics & Gynecology
DX: Z12.31 Encounter for screening mammogram for malignant neoplasm of breast (principal)
CPT/HCPCS: 77067

== ENCOUNTER 2023-12-10 10:11 | Outpatient (CLI) | payer BC, SELFPAY ==
--- NOTE | ~2023-12-10 | XR_ITS ---
EXAMINATION: XR chest 2V 12/10/2023 12:57 INDICATION: Preop for knee surgery PROCEDURE: 2 view chest COMPARISON: 07/29/2023 FINDINGS: The lungs are clear. The cardiomediastinal silhouette is within normal limits. There are no pleural effusions. There is no pneumothorax suspected. IMPRESSION: 1: NO ACUTE CARDIOPULMONARY DISEASE. Reviewed, dictated and finalized at location B.
[2023-12-10 10:32] LABS: Basophils Absolute Auto 0.05 K/mm3 (0.00-0.10); Basophils Percent Auto 0.7 % (0.0-1.0); Eosinophils Absolute Auto 0.15 K/mm3 (0.02-0.50); Eosinophils Percent Auto 2.1 % (1.0-6.0); Hematocrit 38.6 % (35.0-49.0); Hemoglobin 12.2 g/dL (12.0-15.0); Immature Granulocyte Absolute 0.02 K/mm3 (0.00-0.00); Immature Granulocyte Percent A 0.3 % (0.0-0.0); Lymphocytes Absolute Auto 2.05 K/mm3 (1.10-4.50); Lymphocytes Percent Auto 28.4 % (18.0-42.0); Mean Corpuscular HGB Conc 31.6 g/dL (32-36); Mean Corpuscular Hemoglobin 25.8 pg (27.0-31.0); Mean Corpuscular Volume 81.6 fL (78.0-102.0); Mean Platelet Volume 10.3 fl (9.2-11.8); Monocytes Percent Auto 5.5 % (2.0-11.0); Neutrophils Absolute Auto 4.54 K/mm3 (1.70-7.20); Platelet Count Result 319 K/mm3 (150-420); Red Blood Count 4.73 M/mm3 (4.20-5.40); White Blood Count 7.2 K/mm3 (4.8-10.8)
[2023-12-10 10:33] LABS: Add Urine Microscopic? NO; Appearance Urine Clear (Clear); Bilirubin Urine Negative (Negative); Blood Urine Trace-intact (Negative); Color Urine Light Yellow (Yellow); Glucose Urine UA Negative (Negative); Ketones Urine Negative (Negative); Leukocyte Esterase Ur Negative (Negative); Nitrate Urine Negative (Negative); Protein Urine Negative (Negative); Specific Grav Ur 1.015 (1.010-1.020); Urobilinogen Urine 0.2 mg/dL (0.2-1.0)
[2023-12-10 10:45] LABS: Hemoglobin A1C 6.2 % (<5.7)
[2023-12-10 12:20] LABS: Alanine Aminotransferase 18 U/L (14-59); Albumin Level 3.5 g/dL (3.4-5.0); Alkaline Phosphatase 108 U/L (46-116); Anion Gap 8 mmol/L (4-12); Aspartate Amino Transferase 15 U/L (15-37); Bilirubin,Total 0.2 mg/dL (0.00-1.00); Blood Urea Nitrogen 15 mg/dL (7-18); Calcium 9.1 mg/dL (8.5-10.1); Carbon Dioxide 31 mmol/L (21-32); Chloride 100 mmol/L (98-108); Estimated Glomerular Filt Rate > 60; Glucose 95 mg/dL (70-99); Osmolality Calculated 288 mOsm/kg (285-295); Potassium 4.5 mmol/L (3.5-5.1); Sodium 139 mmol/L (136-145); Total Protein 6.7 g/dL (6.4-8.2)
--- NOTE | 2023-12-10 12:48 | ECG_ITS ---
Test Date: 2023-12-10 13:08:08 Measurements Intervals [place] Rate: 71 P: 49 WI: 145 QRS: 43 QRSD: 86 T: -10 QT: 343 QTc: 374 Interpretive Statements SINUS RHYTHM NONSPECIFIC ST AND T-WAVE ABNORMALITY No previous ECG available for comparison Electronically Signed On 12-10-2023 15:47:43 CDT by Carlos Prater M.D.
== END 2023-12-10 10:12 | disposition home or self-care (01) ==
PROVIDERS: PCP Family Medicine; Visit Provider Orthopaedic Surgery
DX: Z01.818 Encounter for other preprocedural examination (principal); M25.561 Pain in right knee; R94.31 Abnormal electrocardiogram [ECG] [EKG]; M17.11 Unilateral primary osteoarthritis, right knee
CPT/HCPCS: 36415; 71046; 80053; 81003; 83036; 85025; 87086; 87088; 93005

== ENCOUNTER 2024-01-03 08:57 | Outpatient (RCR) | payer BC, SELFPAY ==
--- NOTE | 2023-12-31 11:13 | PCPTNOTE ---
Pt is sick and called to reschedule for 01/03/24. -Rachana Gramajo, PT
--- NOTE | 2024-01-03 09:54 | OPREHPOC ---
Outpatient Therapy Plan of Care This is a Multidisciplinary Plan of Care that may contain components documented by all disciplines (PT, OT, and ST.) PT Problem 1 PT Problem #1 Knowledge Deficit PT Goal 1 Goal / Goal Update 1. independent and compliant with HEP Target Visit 6 PT Problem 2 PT Problem #2 Pain PT Goal 1 Goal / Goal Update 1. decrease pain at worst to 3/10 or less in the R knee Target Visit 12 PT Problem 3 PT Problem #3 Impaired Range of Motion PT Goal 1 Goal / Goal Update 1. 0-120 degrees active R knee rom Target Visit 12 PT Problem 4 PT Problem #4 Impaired Strength PT Goal 1 Goal / Goal Update 1. no extension lag with R LE SLR. 2. 4+/5 R hip flexion strength 3. 5/5 R knee strength Target Visit 12 PT Problem 5 PT Problem #5 Impaired Functional Mobil PT Goal 1 Goal / Goal Update 1. LEFS to display 30% or less functional deficits 2. patient to ambulate without AD with reciprocal gait mechanics and equal stance time/step and stride length 3. patient to ambulate up and down steps with reciprocal mechanics Target Visit 12
--- NOTE | 2024-01-03 09:55 | PTOPEVAL1 ---
Assessment and note entered by JT File, PT Evaluation Information Assessment Status Evaluation Diagnosis R TKA ICD-10 Condition Codes (PT) Z47.89,Z47.1 Onset 12/24/23 Subjective Information patient reports she had a R TKA on 12/24/23. she reports she had a fall back in 2021. she reports this led to continued pain and a surgery to clean up a meniscus tear. 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 she reports she has been hurting since surgery. she reports she is swollen in the R knee. she reports she has a CPM at home. she reports she has been using her CPM 3-4 hours daily. she reports she has also been elevating and using an ice machine to help with the pain and swelling. patient reports she took her pain meds before bed last night, but opted not to take them this morning prior to therapy to try and give a better judgement/assessment of her actual pain and mobility. she is hurting this morning. patient reports she is 5ft 5in tall and weighs 185lbs. Reported Pain Level Pain Score 8: Self Report Assessment PT Clinical Summary mrs. rm is a 58 yo woman who presents to skilled PT services for evaluation and treatment s /p R TKA. she presents today with deficits in R knee rom, strength, normal gait mechanics, and functional activity performance/quality of life. she is 10 days post-op today. she would benefit from continued skilled PT to address her objective /functional deficits and return to normal rom, strength, and gait mechanics. Plan of Care Interventions Electrical Stimulation,Gait Training,Hot Pack/Cold Pack,Intermittent Compression,Manual Therapy, Neuro Re-education,Patient/Caregiver Educati, Therapeutic Activities,Therapeutic Exercise PT Services Indicated Yes Treatment Frequency and 3x weekly for 12 visits Duration These treatments will address the objective and functional deficits as defined above. The patient will be advanced safely and appropriately in order for the patient to progress towards his/her prior level of function. Additional exercises will be introduced and as well as a comprehensive home exercise program upon discharge, if needed, ?to ensure carryover of functional gains achieved in the clinic. This treatment plan has been reviewed and agreement upon by the patient.
--- NOTE | 2024-01-07 08:10 | PCPTNOTE ---
Patient called & cancelled scheduled appointment this date due to [illness]
--- NOTE | 2024-01-09 10:00 | PCPTNOTE ---
Cancelled session today. Reports the pain medication is making her sick and will reschedule for next week.
--- NOTE | 2024-02-05 11:41 | OPREHPOC ---
Outpatient Therapy Plan of Care This is a Multidisciplinary Plan of Care that may contain components documented by all disciplines (PT, OT, and ST.) PT Problem 1 PT Problem #1 Knowledge Deficit PT Goal 1 Goal / Goal Update 1. independent and compliant with HEP Target Visit 6 Progress Met PT Problem 2 PT Problem #2 Pain PT Goal 1 Goal / Goal Update 1. decrease pain at worst to 3/10 or less in the R knee Target Visit 12 Progress Met PT Problem 3 PT Problem #3 Impaired Range of Motion PT Goal 1 Goal / Goal Update 1. 0-120 degrees active R knee rom Target Visit 12 Progress Met PT Problem 4 PT Problem #4 Impaired Strength PT Goal 1 Goal / Goal Update 1. no extension lag with R LE SLR. 2. 4+/5 R hip flexion strength 3. 5/5 R knee strength Target Visit 12 Progress Partially Met PT Problem 5 PT Problem #5 Impaired Functional Mobil PT Goal 1 Goal / Goal Update 1. LEFS to display 30% or less functional deficits 2. patient to ambulate without AD with reciprocal gait mechanics and equal stance time/step and stride length. met 3. patient to ambulate up and down steps with reciprocal mechanics. met Target Visit 12 Progress Partially Met
--- NOTE | 2024-02-05 11:41 | PTOPPROGNS ---
Assessment and note entered by JT File, PT Evaluation Information Assessment Status Progress Diagnosis R TKA ICD-10 Condition Codes (PT) Z47.89,Z47.1 Onset 12/24/23 Subjective Information patient reports she is doing much better. she reports the knee is a tad sore from her increased walking over the weekend. she reports she is now able to ambulate stairs, and is walking without any AD. Assessment PT Clinical Summary mrs. rm presents to skilled PT services today for her 10th skilled PT visit s/p R TKA. she has improved in her rom, strength, ambulation, and reports pain reduction. she has met several goals, and made progress towards all others. she would benefit from continued skilled PT to address her remaining rom and functional deficits to achieve full goals and return to prior level functional activity performance/quality of life. Plan of Care Interventions Electrical Stimulation,Gait Training,Hot Pack/Cold Pack,Intermittent Compression,Manual Therapy, Neuro Re-education,Patient/Caregiver Educati, Therapeutic Activities,Therapeutic Exercise PT Services Indicated Yes Treatment Frequency and continue skilled PT per initial POC Duration These treatments will address the objective and functional deficits as defined above. The patient will be advanced safely and appropriately in order for the patient to progress towards his/her prior level of function. Additional exercises will be introduced and as well as a comprehensive home exercise program upon discharge, if needed, ?to ensure carryover of functional gains achieved in the clinic. This treatment plan has been reviewed and agreement upon by the patient.
--- NOTE | 2024-02-10 11:48 | PTOPDC ---
Assessment and note entered by [facility] Evaluation Information Assessment Status Discharge Diagnosis R TKA ICD-10 Condition Codes (PT) Z47.89,Z47.1 Onset 12/24/23 Subjective Information Pt. reports that she is doing better. She has returned to driving and is not using an AD. Pain is present, but much less intense. She reports that she will continue with exercise and is ready for discharge at this time. Reported Pain Level Pain Score 2: Self Report Assessment PT Clinical Summary Pt. has attended a total of 12 treatment sessions. In this time she demonstrate significant improvements in ROM, strength, gait and function. She is encouraged to continue with her HEP at this time and will be discharged from our care. Plan of Care PT Services Indicated No
== END 2024-02-10 13:05 | disposition home or self-care (01) ==
LOC: CHSPT 08:57
PROVIDERS: Visit Provider Orthopaedic Surgery
DX: M17.11 Unilateral primary osteoarthritis, right knee (principal)
CPT/HCPCS: 97016; 97110; 97140; 97150; 97161

== ENCOUNTER 2024-03-13 11:37 | Emergency (ER) | payer BC, SELFPAY ==
--- NOTE | ~2024-03-13 | XR_ITS ---
EXAMINATION: XR hand LT min 3V, XR wrist LT min 3V DATE: 03/13/2024 11:57 INDICATION: Left hand and wrist injury post fall TECHNIQUE: 1. Posteroanterior, ulnar deviation, oblique, and lateral views of the left wrist were obtained. 2. Dorsal palmar, oblique and lateral views of the left hand were obtained. COMPARISON: None. FINDINGS: Alignment of the left hand and wrist is normal. There appears at least 1 potentially 2 small fracture fragment along the dorsum of the carpus likely arising from the triquetrum and potentially also the capitate. Mild overlying soft tissue swelling. No other fractures identified. Polyarticular osteoarth ritis of mild and moderate severity at the interphalangeal joints and mild at the distal radioulnar, triscaphe, first carpometacarpal and a few metacarpophalangeal joints. IMPRESSION: 1. At least 1 and potentially 2 small fracture fragments along the dorsum of the carpus which appear to arise from the triquetrum and possibly also the capitate. 2. 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 Reviewed, dictated and finalized at location A. OR COUNSEL IMPRESSION: 1. At least 1 and potentially 2 small fracture fragments along the dorsum of th e carpus which appear to arise from the triquetrum and possibly also the capita te. 2. 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
[2024-03-13 11:42] VITALS: BP 119/79; PULSE 88; RESP 18; TEMP 36.6; O2SAT 97
--- NOTE | 2024-03-13 11:46 | ED_ITS ---
HPI - Extremity Injury (Upper) General Chief Complaint: Extremity Injury, Upper Stated Complaint: WRIST PAIN Time Seen by Provider: 03/13/24 11:46 Source: patient Mode of arrival: ambulatory Limitations: no limitations History of Present Illness HPI narrative: Patient is a 58-year-old female with a left wrist and hand injury 3 nights ago. She was ground level and fell forward and used her hand as a block. 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 The left knee is very minimal pain and not much trouble for her at this time. She is having pain of the left wrist and left hand with some bruising. complaint: injury to: left, wrist and hand Onset (ago): day(s) (3) Other Extremity Injury: Left: fingers, hand and wrist Other injuries: LLE ( Knee minimally) Place: outdoors Severity: mild Severity scale (1-10): 3 Relieving factors: immobilization Exacerbating factors: movement of extremity Context: fall Associated symptoms: denies other symptoms Treatments prior to arrival: bandage Related Data Allergies Allergy/AdvReac Type Severity Reaction Status Date / Time No Known Allergies Allergy Verified 12/17/23 11:21 Review of Systems Review of Systems: All systems reviewed & are unremarkable except as noted in HPI and below Constitutional: Constitutional: Reports no additional constitutional complaints Eyes: Eyes: Reports no additional eye complaints ENT: Reports system reviewed and no additional complaints, except as documented Cardiovascular: Cardiovascular: Reports no additional cardiovascular complaints Respiratory: Respiratory: Reports no additional respiratory complaints Gastrointestinal: Gastrointestinal: Reports no additional gastrointestinal complaints Genitourinary: Genitourinary: Reports no additional female genitourinary complaints Musculoskeletal: Musculoskeletal: Reports no additional musculoskeletal complaints Integumentary/Breasts: Skin/Breast: Reports system reviewed and no additional complaints, except as docu Neurologic: Reports system reviewed and no additional complaints, except as documented Psychiatric: Psychiatric: Reports no additional psychiatric complaints Endocrine: Endocrine: Reports no additional endocrine complaints Hematologic/Lymphatic: Hematologic/Lymphatic: Reports no additional hematologic/lymphatic complaints Allergic/Immunologic: Allergic/Immunologic: Reports no additional allergic/immunologic complaints PMFSH Past Medical History Medical History Diarrhea Obesity Right leg pain Surgical History Surgical History H/O cervical discectomy H/O colonoscopy (09/26/23) normal H/O: section History of foot surgery right History of hysterectomy Only has right ovary Family History Family History Father Stomach cancer Social History Social History Smoking status: Never smoker Second hand tobacco smoke exposure: No Alcohol intake: current Drinks per week: 1 Alcohol use details: social Substance use: never Substance use type: does not use Do You Feel Safe in your Home?: Yes Lack of Transportation: No Lack of Food: Never True Current Housing: I Have Housing Concerned About Future Housing: No Difficulty Paying Gas/Electric Bills: No Difficulty Paying for Meds: No Currently Unemployed: YES Education: Bachelor's Degree Difficulty w/ Childcare or Family Care: No Living arrangements: with family Additional living arrangements comments: Lives with fiance Occupation/Education: unemployed Additional occupation/education comments: laid off Gender identity (if verbalized by the patient): Female Sexual Orientation (if Verbalized by the Patient): Straight or Heterosexual Spiritual care concerns: No Exam Const: General: healthy appearing Nutritional Appearance: well nourished Orientation/consciousness: patient oriented x3 HENMT: Head: normal to inspection Ears: external ears normal Face/Nose/Sinus: Normal external nose present Eyes: Conjunctivae: conjunctivae normal Pupils: Equal, round and reactive pupils present EOM: EOMs intact bilaterally Neck: Neck: normal visual inspection Chest: Chest palpation & inspection: normal inspection of the chest Resp: Effort & Inspection: normal respiratory effort and not labored Auscultation: clear to auscultation bilaterally and no crackles Cardio: Rate: regular rate Rhythm: regular rhythm Heart sounds: no murmurs GI: Inspection: non-distended GI Palp: Yes Soft to palpation and No Tend erness to palpation present (GI) Auscultation: normal bowel sounds : General: Yes bladder normal to palpation Back/Spine/Pelvis: Back: no CVA tenderness Skin: General skin exam: No normal color Rashes: no rashes Wounds: no wounds Other: left wrist has ecchymosis throughout the hand and wrist both palmar and exte nsor surface; tenderness at the hypothenar area and medial wrist Neuro: General: patient oriented x3 Cranial nerves: Yes Nystagmus not present Speech: normal speech Gait exam (Neuro): Normal gait present Extrem: General: normal to inspection Psych: Mental Status: mental status grossly normal Affect: normal affect Attitude: cooperative Course Vital Signs Vital signs: Vital Signs Temperature 36.6 C 03/13/24 11:42 Pulse Rate 88 03/13/24 11:42 Respiratory Rate 18 03/13/24 11:42 Blood Pressure 119/79 03/13/24 11:42 Pulse Oximetry 97 03/13/24 11:42 Oxygen Delivery Room Air 03/13/24 11:42 Temperature 36.6 C 03/13/24 11:42 Pulse Rate 88 03/13/24 11:42 Respiratory Rate 18 03/13/24 11:42 Blood Pressure 119/79 03/13/24 11:42 Pulse Oximetry 97 03/13/24 11:42 Oxygen Delivery Room Air 03/13/24 11:42 MDM - Extremity Injury (Upper) MDM Narrative Medical decision making narrative: patient is a 58-year-old female with a left wrist injury. We will do x-rays at this time. will place a fiberglass cast on the left upper extremity. She will need to see a hand specialist in the next week. We will send pain medication to the pharmacy. Imaging Data Attestation: I personally reviewed and interpreted this imaging study as follows: Radiologist's impression: Left hand x-ray shows IMPRESSION: 1. At least 1 and potentially 2 small fracture fragments along the dorsum of the carpus which appear to arise from the triquetrum and possibly also the capitate. 2. 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 Discharge Plan Discharge Clinical Impression: Closed hand fracture Qualifiers: Encounter type: initial encounter Laterality: left Qualified Code(s): S62.92XA - Unspecified fracture of left wrist and hand, initial encounter for closed fracture Patient Disposition: Home, Self-Care Condition: Stable Instructions: Hand Fracture (DC) Additional Instructions: Please follow-up with the primary doctor in the next week. Please see a hand orthopedic surgeon specialist in the next week. Prescriptions: New hydrocodone-acetaminophen 5-325 mg tablet 1 tablet PO Q8H PRN (Reason: pain) Qty: 20 0RF Rx Instructions: 1-2 tabs per dose No Action sumatriptan succinate 100 mg tablet See Rx Instructions .ROUTE .COMPLEX Qty: 9 5RF Dose Instruction: TAKE 1 TABLET BY MOUTH ONCE NEEDED FOR MIGRAINE HEADACHE Rx Instructions: TAKE 1 TABLET BY MOUTH ONCE NEEDED FOR MIGRAINE HEADACHE diclofenac sodium [Voltaren Arthritis Pain] 1 % gel 2 g topical QID Qty: 100 0RF Rx Instructions: apply to single elbow, wrist or hand; for hand includes palm/fingers/back of hand cholecalciferol (vitamin D3) 1,250 mcg (50,000 unit) capsule See Rx Instructions .ROUTE .COMPLEX Qty: 12 1RF Dose Instruction: TAKE 1 CAPSULE BY MOUTH WEEKLY Rx Instructions: TAKE 1 CAPSULE BY MOUTH WEEKLY Wegovy 0.25 mg/0.5 mL pen injector 0.25 mg subcut WEEKLY Qty: 2 0RF Rx Instructions: administer weeks 1 through 4 of therapy quetiapine 400 mg tablet See Rx Instructions .ROUTE .COMPLEX Qty: 10 0RF Dose Instruction: TAKE 1 TABLET BY MOUTH AT BEDTIME Rx Instructions: TAKE 1 TABLET BY MOUTH AT BEDTIME tizanidine 4 mg tablet See Rx Instructions .ROUTE .COMPLEX Qty: 10 0RF Dose Instruction: TAKE 1 TABLET BY MOUTH EVERY DAY NEEDED FOR MUSCLE SPASTICITY Rx Instructions: TAKE 1 TABLET BY MOUTH EVERY DAY NEEDED FOR MUSCLE SPASTICITY venlafaxine 75 mg capsule,extended release 24hr See Rx Instructions .ROUTE .COMPLEX Qty: 90 2RF Dose Instruction: TAKE 1 CAPSULE BY MOUTH EVERY DAY Rx Instructions: TAKE 1 CAPSULE BY MOUTH EVERY DAY lorazepam 1 mg tablet 1 mg PO DAILY PRN (Reason: anxiety) Qty: 20 0RF metoprolol tartrate 50 mg tablet See Rx Instructions .ROUTE .COMPLEX Qty: 180 0RF Dose Instruction: TAKE 1 TABLET BY MOUTH TWICE A DAY Rx Instructions: TAKE 1 TABLET BY MOUTH TWICE A DAY Follow-up/Referrals: Maikol Najera DO [Primary Care Provider] - Time of Disposition: 12:38
[2024-03-13 12:53] VITALS: BP 124/74; PULSE 76; PULSE 88; RESP 18; RESP 20; TEMP 36.7; O2SAT 97; O2SAT 98
== END 2024-03-13 12:53 | disposition home or self-care (01) ==
PROVIDERS: Emergency Provider Emergency Medicine; PCP Family Medicine
DX: S62.92XA Unspecified fracture of left hand, initial encounter for closed fracture (principal); Z96.652 Presence of left artificial knee joint; W18.30XA Fall on same level, unspecified, initial encounter
CPT/HCPCS: 29125; 73110; 73130; 99284

== ENCOUNTER 2024-06-19 11:09 | Outpatient (CLI) | payer BC, OTHER, SELFPAY ==
[2024-06-19 11:43] LABS: Basophils Absolute Auto 0.05 K/mm3 (0.00-0.10); Basophils Percent Auto 0.5 % (0.0-1.0); Eosinophils Absolute Auto 0.27 K/mm3 (0.02-0.50); Eosinophils Percent Auto 2.6 % (1.0-6.0); Hematocrit 40.9 % (35.0-49.0); Hemoglobin 12.2 g/dL (12.0-15.0); Immature Granulocyte Absolute 0.06 K/mm3 (0.00-0.00); Immature Granulocyte Percent A 0.6 % (0.0-0.0); Lymphocytes Absolute Auto 2.94 K/mm3 (1.10-4.50); Lymphocytes Percent Auto 28.2 % (18.0-42.0); Mean Corpuscular HGB Conc 29.8 g/dL (32-36); Mean Corpuscular Hemoglobin 24.6 pg (27.0-31.0); Mean Corpuscular Volume 82.6 fL (78.0-102.0); Mean Platelet Volume 10.5 fl (9.2-11.8); Monocytes Absolute Auto 0.54 K/mm3 (0.10-0.90); Monocytes Percent Auto 5.2 % (2.0-11.0); Neutrophils Absolute Auto 6.56 K/mm3 (1.70-7.20); Neutrophils Percent Auto 62.9 % (50.0-70.0); Platelet Count Result 365 K/mm3 (150-420); Red Blood Count 4.95 M/mm3 (4.20-5.40); Red Cell Distribution Width 14.9 % (11.6-14.4); White Blood Count 10.4 K/mm3 (4.8-10.8)
[2024-06-19 11:52] LABS: Hemoglobin A1C 5.9 % (<5.7)
--- OUTSIDE RECORDS SUMMARY | 2024-06-19 12:07 | XMS_ITS | Continuity of Care Document ---
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 [address] [place] [address], [id number] [place], [facility], . tel:[phone] Referring Provider: Jean-Claude Parisi DO, [address] [place] [address], [address]. tel:[phone] [facility], [address] [place] [address], [facility], [facility] No Information 9 Komal Tatum. [address] [place] [address], [address], [facility] [address], [place], [id number], [place]. tel:[phone] Referring Provider: Jean-Claude Parisi DO, [address] [place] [address] [facility], [place], [address]. tel:[phone] Family History Family Member Type Diagnosis Age At Onset No Information Payers Payer name Insurance type Covered democrat ID Authoriza tion(s) BLUE [employer] AND BLUE SHIELD [facility] [id number] Social History Type Description Quantity Date Captured [...]
--- OUTSIDE RECORDS SUMMARY | 2024-06-19 12:07 | XMS_ITS | Referral Summary ---
Author Organization [facility] Medical Office Building B Address [address] [place] [address] Care Team Providers Care Electrical Test Technician Name Role Phone Maikol Najera DO Primary Care Provider Varsha Gilliam Unavailable [phone] Santi Hagen Unavailable [phone] Encounters Date Type Department Care Team Description 06/15/2024 9:15 AM MOBILE HOME LABORER Office Visit [facility] Orthopedic and Sports Medicine [address] [place] [phone] Santi Hagen PA Aftercare following right knee joint replacement surgery (Primary Dx); Primary osteoarthritis of left knee 05/08/2024 3:50 PM MOBILE HOME LABORER Ancillary Procedure [facility] Medical Group Imaging at [address] [phone] Nondisplaced fracture of triquetrum (cuneiform) bone, left wrist, initial encounter for closed fracture 05/08/2024 3:45 PM MOBILE HOME LABORER Office Visit [facility] Sports Medicine and Primary Care at [address] [place] [address] Kenny Ram DO Nondisplaced fracture of triquetrum (cuneiform) bone, left wrist, subsequent encounter for fracture with routine healing (Primary Dx) 04/16/2024 11:25 AM MOBILE HOME LABORER Ancillary Procedure [facility] Medical Group Imaging at [address] [phone] Nondisplaced fracture of triquetrum (cuneiform) bone, left wrist, initial encounter for closed fracture 04/16/2024 11:30 AM MOBILE HOME LABORER Office Visit [facility] Sports Medicine and Primary Care at [address] [place] [address] Kenny Ram DO Nondisplaced fracture of triquetrum (cuneiform) bone, left wrist, subsequent encounter for fracture with routine healing (Primary Dx); Nondisplaced fracture of triquetrum (cuneiform) bone, left wrist, initial encounter for closed fracture 04/06/2024 Orders Only [facility] Orthopedic and Sports Medicine [address] [place] [phone] Santi Hagen PA 04/01/2024 Telephone [facility] Orthopedics and Sports Medicine [address] [place] [phone] Santi Hagen PA 03/23/2024 2:30 PM MOBILE HOME LABORER Office Visit [facility] Sports Medicine and Primary Care at [address] [place] [address] Kenny Ram DO Nondisplaced fracture of triquetrum (cuneiform) bone, left wrist, initial encounter for closed fracture (Primary Dx) from Last 3 Months Allergies No known active allergies Medications metoprolol tartrate (LOPRESSOR) 50 mg immediate release tablet metoprolol tartrate 50 mg tablet TAKE 1 TABLET BY MOUTH TWICE A DAY Active tiZANidine (ZANAFLEX) 4 mg tablet Take 1 tablet (4 mg total) by mouth every 6 (six) hours as needed 03/14/20 22 Active venlafaxine XR (EFFEXOR-XR) 75 mg 24 hr capsule Take by mouth daily 01/27/20 22 Active SUMAtriptan (IMITREX) 100 mg tablet TAKE 1 TABLET BY MOUTH ONCE NEEDED FOR MIGRAINE HEADACHE 01/23/20 22 Active QUEtiapine (SEROquel) 100 mg tablet Take 1 tablet (100 mg total) by mouth nightly 03/14/20 22 Active LORazepam (ATIVAN) 1 mg tablet Take 1 tablet (1 mg total) by mouth every 6 (six) hours as needed 12/07/19 23 Active senna-docusat e (PERICOLACE) 8.6-50 mg 1-2 times daily as needed for constipation 60 tablet 1 12/25/19 24 Active Additional Information Patient not taking.Reported on 06/15/2024 ondansetron (ZOFRAN) 4 mg tabletIndicat ions:Preventi on of Post-Operativ e Nausea and Vomiting Take 1 tablet (4 mg total) by mouth every 6 (six) hours as needed for nausea or vomiting 30 tablet 1 01/07/20 24 Active HYDROcodone-a cetaminophen (NORCO) 10-325 mg per tablet Take 1 tablet by mouth every 8 (eight) hours as needed for pain 20 tablet 06/16/19 25 Active ascorbic acid (VITAMIN C) 500 mg tablet,chewab le Take 1 tablet/chew tab (500 mg total) by mouth 2 (two) times a day 60 tablet/chew tab 12/25/19 24 025 Discontinued cholecalcifer ol (VITAMIN D-3) 2000 unit capsule Take 1 capsule (2,000 Units total) by mouth daily 30 capsule 12/25/19 24 025 Discontinued aspirin 81 mg enteric coated tabletIndicat ions:preventi on of thrombosis Take 1 tablet (81 mg total) by mouth 2 (two) times a day for 28 days 56 tablet 12/25/19 24 025 Discontinued celecoxib (CeleBREX) 100 mg capsule Take 1 capsule (100 mg total) by mouth 2 (two) times a day 60 capsule 01/06/20 24 025 Discontinued gabapentin (NEURONTIN) 100 mg capsule Take 1 capsule (100 mg total) by mouth 3 (three) times a day 90 capsule 01/06/20 24 025 Discontinued HYDROcodone-a cetaminophen (NORCO) 10-325 mg per tablet Take 1 tablet by mouth every 8 (eight) hours as needed for pain 20 tablet 04/06/20 24 025 Discontinued(R eorder) Hospital, Clinic, or Other Facility Administered Medication Ordered Dose Route Frequency Start Date End Date Status lidocaine (XYLOCAINE) 20 mg/mL (2 %) injection 3 mLIndications:Admini stration of Local Anesthesia 3 mL One-Time Injection 06/15/2024 5 Ended methylPREDNISolone acetate (DEPO-medrol) injection 80 mgIndications:Primar y osteoarthritis of left knee 80 mg intra-artic One-Time Injection 06/15/2024 5 Ended Active Problems Problem Noted Date Diagnosed Date Arthritis of knee 12/24/2023 Primary osteoarthritis of right knee 12/07/2023 Abdominal pain 05/01/2023 Abnormal glucose level 05/01/2023 Acute bronchitis 05/01/2023 Concussion with no loss of consciousness 024 Cough 05/01/2023 Fatigue 05/01/2023 Insomnia 05/01/2023 Malaise and fatigue 05/01/2023 Menopausal flushing 05/01/2023 Sinusitis 05/01/2023 Visual disturbance 05/01/2023 Complex tear of medial meniscus of left knee 08/2022 Complex tear of medial meniscus of right knee Overview (04/27/2022): Added automatically from request for surgery [id number] Overweight 03/14/2022 Sjogren's syndrome 03/14/2022 Fibromyalgia 07/04/2020 Migraine 07/04/2020 Acute upper respiratory infection 08/22/2006 Anemia 06/14/2006 Anxiety 06/04/2006 Joint pain 06/03/2006 Social History Tobacco Use Types Packs/Day Years Used Date Smoking Tobacco: Never Passive Smoke Exposure: Never Smokeless Tobacco: Never Tobacco Cessation:Counseling Given: Not Answered AUDIT-C Answer Date Recorded Q1: How often do you have a drink containing alcohol? Never 05/08/2024 Q2: How many drinks containi ng alcohol do you have on a typical day when you are drinking? Patient does not drink Q3: How often do you have si x or more drinks on one occasion? Never 05/08/2024 PHQ-2 Answer Date Recorded PHQ-2 Total Score (If total score is 3 or more points, staff should administer the PHQ-9) 0 12/24/2023 Personal Safety Answer Date Recorded Have you ever been in or are you currently in a harmful physical or emotional relationship or is someone making you feel afraid or unsafe? Denies 12/24/2023 Comments No Sex and Gender Information Value Date Recorded Sex Assigned at Not on file Legal Sex Female 11:22 AM CDT Gender Identity Not on file Sexual Orientation Not on file Last Filed Vital Signs Vital Sign Reading Time Taken Comments Blood Pressure 119/82 06/15/2024 9:12 AM MOBILE HOME LABORER Pulse 80 06/15/2024 9:12 AM MOBILE HOME LABORER Temperature 36.1 C (96.9 F) 12/25/2023 11:02 AM CDT Respiratory Rate 18 06/15/2024 9:12 AM MOBILE HOME LABORER Oxygen Saturation 95% 12/25/2023 11:02 AM CDT Inhaled Oxygen Concentration - - Weight 105.9 kg (233 lb 8 oz) 06/15/2024 9:12 AM MOBILE HOME LABORER Height 165.1 cm (5' 5 ) 06/15/2024 9:12 AM MOBILE HOME LABORER Body Mass Index 38.86 06/15/2024 9:12 AM MOBILE HOME LABORER Plan of Treatment Not on file Medical Devices Implanted Type Area Hospice Team Lead Device Identifier Shelf Expiration Date Model / Serial / Lot Plate N/A: Neck [employer] Attune Fb Tib Base Sz 4 Por [id number] - [id number] Implanted:Qty: 1 on 12/24/2023 by Loc Angulo MD at [facility] Right: Knee [employer] 11/12/2033 [id number] / / [id number] [employer] Attune Cruciate Retain Cementless Knee Right 5 Narrow Component [id number] - [id number] Implanted:Qty: 1 on 12/24/2023 by Loc Angulo MD at [facility] Right: Knee [employer] 01/13/2032 [id number] / / [id number] [employer] Insert Tibial Knee Fixed Rm Posterior Stabilized Attune 6mm Size 5 Polyethylene [id number] - [id number] Implanted:Qty: 1 on 12/24/2023 by Loc Angulo MD at [facility] Right: Knee [employer] 05/15/2031 [id number] / / [id number] Procedures Procedure Name Priority Date/Time Associated Diagnosis Comments LA ARTHROCENTESIS ASPIR&/INJ MAJOR JT/BURSA W/O US Routine 06/15/2024 9:15 AM MOBILE HOME LABORER Primary osteoarthritis of left knee XR WRIST LEFT 3 OR MORE VIEWS Schedule Routine, Read Routine (OP Routine) 05/08/2024 3:44 PM MOBILE HOME LABORER Nondisplaced fracture of triquetrum (cuneiform) bone, left wrist, initial encounter for closed fracture XR WRIST LEFT 3 OR MORE VIEWS Schedule Routine, Read Routine (OP Routine) 04/16/2024 11:32 AM MOBILE HOME LABORER Nondisplaced fracture of triquetrum (cuneiform) bone, left wrist, initial encounter for closed fracture from Last 3 Months Results * LA ARTHROCENTESIS ASPIR&/INJ MAJOR JT/BURSA W/O US (06/15/2024 9:15 AM MOBILE HOME LABORER) Narrative Santi Hagen PA - 06/15/2024 9:15 AM MOBILE HOME LABORER Santi Hagen PA 06/15/2024 9:36 AM Large Joint (Hip, Knee, Shoulder) Injection: L knee Performed by: Santi Hagen PA Authorized by: Santi Hagen PA Large Joint Injection/Aspiration: Consent Given by: Patient Timeout: prior to procedure the correct patient, procedure, and site was verified Verbal consent obtained: Yes Supporting Documentation: Indications: Pain Procedure Details: Location: Knee Site: L knee Prep: patient was prepped using a clean technique Needle Size: 22 G Approach: Anteromedial Ultrasound guided: No Fluroscopic guidance: No Medications: 80 mg methylPREDNISolone acetate 80 mg/mL; 3 mL lidocaine 20 mg/mL (2 %) Patient tolerance: Patient tolerated the procedure well with no immediate complications us Santi [facility] IN CLINIC/BEDSIDE ORDERABLE S Final Result * XR Wrist Left 3 or More Views (05/08/2024 3:44 PM MOBILE HOME LABORER) Anatomical Region Laterality Modality Upper Extremities, Wrist Left Digital Radiography 05/08/2024 5:20 PM MOBILE HOME LABORER Narrative 05/08/2024 5:23 PM MOBILE HOME LABORER EXAM DESCRIPTION: XR WRIST LEFT 3 OR MORE VIEWS REASON FOR STUDY: pain Follow up fracture of triquetrum from [employer]. FINDINGS: Three views submitted with comparison 04/16/2024. Small dorsal triquetral fragment is unchanged. No acute fracture identified. There is mild triscaphe joint osteoarthritis. IMPRESSION: Unchanged small dorsal triquetral fragment. THIS IS AN ELECTRONICALLY VERIFIED FINAL REPORT 05/08/2024 5:23 PM - Electronically signed by Kenny Hernandez M.D. T: Report ID: [id number] Reading Location: [id number] Procedure Note Kenny Hernandez MD - 05/08/2024 EXAM DESCRIPTION: XR WRIST LEFT 3 OR MORE VIEWS REASON FOR STUDY: pain Follow up fracture of triquetrum from [employer] [employer]. FINDINGS: Three views submitted with comparison 04/16/2024. Small dorsal triquetral fragment is unchanged. No acute fractureidentified. There is mild triscaphe joint osteoarthritis. IMPRESSION: Unchanged small dorsal triquetral fragment. THIS IS AN ELECTRONICALLY VERIFIED FINAL REPORT 05/08/2024 5:23 PM - Electronically signed by Kenny Hernandez M.D. T: Report ID: [id number] Reading Location: [id number] Kenny Ram DO IMG XR PROCEDURES [place] Result * XR Wrist Left 3+ Vw (04/16/2024 11:32 AM MOBILE HOME LABORER) Anatomical Region Laterality Modality Upper Extremities, Wrist Left Digital Radiography 04/17/2024 1:12 PM MOBILE HOME LABORER Narrative 04/17/2024 1:16 PM MOBILE HOME LABORER EXAM DESCRIPTION: XR WRIST LEFT 3 OR MORE VIEWS REASON FOR STUDY: pain Follow up triquetrum fx from about 8 weeks ago. FINDINGS: Four views submitted with comparison 03/03/2024. Redemonstrated is a nondisplaced dorsal triquetral fracture. Soft tissue swelling has resolved in the interval. There is mild triscaphe joint osteoarthritis. IMPRESSION: Unchanged nondisplaced dorsal left triquetral fracture. THIS IS AN ELECTRONICALLY VERIFIED FINAL REPORT 04/17/2024 1:16 PM - Electronically signed by Kenny Hernandez M.D. T: Report ID: [id number] Reading Location: [id number] Procedure Note Kenny Hernandez MD - 04/17/2024 EXAM DESCRIPTION: XR WRIST LEFT 3 OR MORE VIEWS REASON FOR STUDY: pain Follow up triquetrum fx from about 8 weeks ago. FINDINGS: Four views submitted with comparison 03/03/2024. Redemonstrated is a nondisplaced dorsal triquetral fracture. Soft tissue swelling has resolved in the interval. There is mild triscaphe joint osteoarthritis. IMPRESSION: Unchanged nondisplaced dorsal left triquetral fracture. THIS IS AN ELECTRONICALLY VERIFIED FINAL REPORT 04/17/2024 1:16 PM - Electronically signed by Kenny Hernandez M.D. T: Report ID: [id number] Reading Location: [id number] Kenny Ram DO IMG XR PROCEDURES [place] Result from Last 3 Months Insurance [employer] [place] [facility] AETNA SIGNATURE CIG[employer] OPEN ACCESS BLUE ACC CHOICE OOS Advance Directives For more information, please contact: [phone] * Full Code (Latest Code Status on File) Date Activated Date Inactivated Comments 12/24/2023 2:52 PM 12/25/2023 7:50 PM Care Teams Electrical Test Technician Relationship Specialty Start Date End Date Maikol Najera DO [address] [place] [address] PCP - General Family Medicine 03/22/22 Varsha Gilliam PA [address] [facility] [address] [place] [address] Physician Carpet Weaver Orthopedic Surgery 05/10/22 Santi Hagen PA [address] [place] [address] [address] [place] [address] Physician Carpet Weaver Orthopedic Surgery 12/25/23
--- OUTSIDE RECORDS SUMMARY | 2024-06-19 12:07 | XMS_ITS | Clinical Summary ---
Author Organization [facility] Medical Office Building B Address [address] [place] [address] Care Team Providers Care Tool Liaison Name Role Phone Maikol Najera DO Primary Care Provider Varsha Gilliam Unavailable Santi Hagen Unavailable Allergies No known active allergies Medications metoprolol [...] (04/27/2022): Added automatically from request for surgery [id number] Overweight 03/14/2022 Sjogren's syndrome 03/14/2022 Fibromyalgia 07/04/2020 Migraine 07/04/2020 Acute upper respiratory infection 08/22/2006 Anemia 06/14/2006 Anxiety 06/04/2006 Joint pain 06/03/2006 Encounters Date Type Department Care Team Description 06/15/2024 9:15 AM LOCKSTITCH BINDER Office Visit [facility] Medical Group Orthopedic and Sports Medicine [address] [place] [phone] Santi Hagen PA Aftercare following right knee joint replacement surgery (Primary Dx); Primary osteoarthritis of left knee 05/08/2024 3:50 PM LOCKSTITCH BINDER Ancillary Procedure [facility] Medical [facility] Imaging at [address] [phone] Nondisplaced fracture of triquetrum (cuneiform) bone, left wrist, initial encounter for closed fracture 05/08/2024 3:45 PM LOCKSTITCH BINDER Office Visit [facility] Sports Medicine and Primary Care at [address] [phone] Kenny Ram DO Nondisplaced fracture of triquetrum (cuneiform) bone, left wrist, subsequent encounter for fracture with routine healing (Primary Dx) 04/16/2024 11:30 AM LOCKSTITCH BINDER Office Visit [facility] Sports Medicine and Primary Care at [address] [phone] Kenny Ram DO Nondisplaced fracture of triquetrum (cuneiform) bone, left wrist, subsequent encounter for fracture with routine healing (Primary Dx); Nondisplaced fracture of triquetrum (cuneiform) bone, left wrist, initial encounter for closed fracture 04/16/2024 11:25 AM LOCKSTITCH BINDER Ancillary Procedure [facility] Imaging at [address] [phone] Nondisplaced fracture of triquetrum (cuneiform) bone, left wrist, initial encounter for closed fracture 04/06/2024 Orders Only [facility] Orthopedic and Sports Medicine [address] [place] [phone] Santi Hagen PA 04/01/2024 Telephone [facility] Orthopedics and Sports Medicine [address] [place] [address] [address] [phone] Santi Hagen PA 03/23/2024 2:30 PM LOCKSTITCH BINDER Office Visit [facility] Sports Medicine and Primary Care at [address] [place] [address] Kenny Ram DO Nondisplaced fracture of triquetrum (cuneiform) bone, left wrist, initial encounter for closed fracture (Primary Dx) from Last 3 Months Surgical History Surgery Date Site/Laterality Comments DISCECTOMY 12/15/2011 - 01/13/2012 C3-C6, patient has a plate SECTION 11/14/1995 - 12/14/1995 SINUS SURGERY 08/13/2008 - 09/12/2008 BUNIONECTOMY 03/15/2013 - 04/14/2013 Bilateral HYSTERECTOMY 04/15/2013 - 04/14/2014 partial, has 1 ovary left KNEE CARTILAGE SURGERY 04/15/2022 - 05/15/2022 Right Medical History Medical History Date Comments Hypertension Migraine PONV (postoperative nausea and vomiting) Anxiety Fibromyalgia Family History Medical History Relation Name Comments Arthritis Other Cancer Other Hypertension Other Relation Name Status Comments Other Social History Tobacco Use Types Packs/Day Years [...] on file Sexual Orientation Not on file Obstetrics History Last Filed Vital Signs Vital Sign Reading Time Taken Comments Blood Pressure 119/82 06/15/2024 9:12 AM LOCKSTITCH BINDER Pulse 80 06/15/2024 9:12 AM LOCKSTITCH BINDER Temperature 36.1 C (96.9 F) 12/25/2023 11:02 AM CDT Respiratory Rate 18 06/15/2024 9:12 AM LOCKSTITCH BINDER Oxygen Saturation 95% 12/25/2023 11:02 AM CDT Inhaled Oxygen Concentration - - Weight 105.9 kg (233 lb 8 oz) 06/15/2024 9:12 AM LOCKSTITCH BINDER Height 165.1 cm (5' 5 ) 06/15/2024 9:12 AM LOCKSTITCH BINDER Body Mass Index 38.86 06/15/2024 9:12 AM LOCKSTITCH BINDER Plan of Treatment Health Maintenance Due Date Last Done Comments Colon Cancer Screening-Colonoscopy 1965 Hepatitis C Screening 1965 DTaP/Tdap/Td Vaccine (1 - Tdap) 08/17/1978 Hepatitis B Screening 08/17/1985 Regular Well Visit/Exam 18-64 08/17/1985 Zoster Vaccine (1 of 2) 08/17/2017 Breast Cancer Screening-Mammogram 05/29/2020 05/29/2019 Covid-19 Vaccine (2 - season) 2023 07/20/2020 Influenza Vaccine (#1) 2023 9, 04/06/2019, 01/22/2018, Additional history exists Depression Screening 12/06/2024 12/07/2023 Pneumococcal vaccine <65 Aged Out No longer eligible based on patient's age to complete this topic Medical Devices Implanted Type Area System Consultant Device Identifier Shelf Expiration Date Model / Serial / Lot Plate N/A: Neck [employer] Attune Fb Tib Base Sz 4 Por [id number] - [id number] Implanted:Qty: 1 on 12/24/2023 by Loc Angulo MD at [facility] Right: Knee [employer] 11/12/2033 [id number] / / [id number] [employer] Attune Cruciate Retain Cementless Knee Right 5 Narrow Component [id number] - [id number] Implanted:Qty: 1 on 12/24/2023 by Loc Angulo MD at [facility] Right: Knee [employer] 01/13/2032 [id number] / / [id number] [employer] Insert Tibial Knee Fixed Rm Posterior Stabilized Attune 6mm Size 5 Polyethylene [id number] - [id number] Implanted:Qty: 1 on 12/24/2023 by Loc Angulo MD at [facility] Right: Knee [employer] 05/15/2031 [id number] / / [id number] Procedures Procedure Name Priority Date/Time Associated Diagnosis Comments ME ARTHROCENTESIS ASPIR&/INJ MAJOR JT/BURSA W/O US Routine 06/15/2024 9:15 AM LOCKSTITCH BINDER Primary osteoarthritis of left knee XR WRIST LEFT 3 OR MORE VIEWS Schedule Routine, Read Routine (OP Routine) 05/08/2024 3:44 PM LOCKSTITCH BINDER Nondisplaced fracture of triquetrum (cuneiform) bone, left wrist, initial encounter for closed fracture XR WRIST LEFT 3 OR MORE VIEWS Schedule Routine, Read Routine (OP Routine) 04/16/2024 11:32 AM LOCKSTITCH BINDER Nondisplaced fracture of triquetrum (cuneiform) bone, left wrist, initial encounter for closed fracture from Last 3 Months Results * ME ARTHROCENTESIS ASPIR&/INJ MAJOR JT/BURSA W/O US (06/15/2024 9:15 AM LOCKSTITCH BINDER) Narrative Santi Hagen PA - 06/15/2024 9:15 AM LOCKSTITCH BINDER Santi Hagen PA 06/15/2024 9:36 AM Large [...] the procedure well with no immediate complications Santi [facility] IN CLINIC/BEDSIDE ORDERABLE S Final Result * XR Wrist Left 3 or More Views (05/08/2024 3:44 PM LOCKSTITCH BINDER) Anatomical Region Laterality Modality Upper Extremities, Wrist Left Digital Radiography 05/08/2024 5:20 PM LOCKSTITCH BINDER Narrative 05/08/2024 5:23 PM LOCKSTITCH BINDER EXAM DESCRIPTION: XR WRIST LEFT 3 OR MORE VIEWS REASON FOR STUDY: pain Follow up fracture of triquetrum from [employer]. FINDINGS: Three views submitted with comparison 04/16/2024. Small dorsal triquetral fragment is unchanged. No acute fracture identified. There is mild triscaphe joint osteoarthritis. IMPRESSION: Unchanged small dorsal triquetral fragment. THIS IS AN ELECTRONICALLY VERIFIED FINAL REPORT 05/08/2024 5:23 PM - Electronically signed by Kenny Hernandez M.D. T: Report ID: [id number] Reading Location: [id number] Procedure Note Kenny Hernandez MD - 05/08/2024 EXAM DESCRIPTION: XR WRIST LEFT 3 OR MORE VIEWS REASON FOR STUDY: pain [facility] FINDINGS: Three views submitted with comparison 04/16/2024. Small dorsal triquetral fragment is unchanged. No acute fractureidentified. There is mild triscaphe joint osteoarthritis. IMPRESSION: Unchanged small dorsal triquetral fragment. THIS IS AN ELECTRONICALLY VERIFIED FINAL REPORT 05/08/2024 5:23 PM - Electronically signed by Kenny Hernandez M.D. T: Report ID: [id number] Reading Location: [id number] Kenny Ram DO IMG XR PROCEDURES [place] Result * XR Wrist Left 3+ Vw (04/16/2024 11:32 AM LOCKSTITCH BINDER) Anatomical Region Laterality Modality Upper Extremities, Wrist Left Digital Radiography 04/17/2024 1:12 PM LOCKSTITCH BINDER Narrative 04/17/2024 1:16 PM LOCKSTITCH BINDER EXAM DESCRIPTION: XR WRIST LEFT 3 OR [...] by Kenny Hernandez M.D. T: Report ID: [id number] Reading Location: [id number] Procedure Note Kenny Hernandez MD - 04/17/2024 [...] by Kenny Hernandez M.D. T: Report ID: [id number] Reading Location: [id number] Kenny Omari Yo DO IMG XR PROCEDURES [place] Result from Last 3 Months Insurance [employer] [place] [facility] AETNA SIGNATURE CIGNA OPEN ACCESS BLUE ACC CHOICE OOS Advance Directives For more information, please contact: [phone] * Full Code (Latest Code Status on File) Date Activated Date Inactivated Comments 12/24/2023 2:52 PM 12/25/2023 7:50 PM Care Teams Tool Liaison Relationship Specialty Start Date End Date Maikol Najera DO [address] [place] [address] PCP - General Family Medicine 03/22/22 Varsha Gilliam PA [address] [place] [address] [address] [place] [address] Physician Numerical Control Machine Tool Operator Orthopedic Surgery 05/10/22 Santi Hagen PA [address] [place] [address] [address] [place] [address] Physician Numerical Control Machine Tool Operator Orthopedic Surgery 12/25/23
[2024-06-19 12:13] LABS: Alanine Aminotransferase 15 U/L (14-59); Albumin Level 3.7 g/dL (3.4-5.0); Alkaline Phosphatase 108 U/L (46-116); Anion Gap 6 mmol/L (4-12); Aspartate Amino Transferase 10 U/L (15-37); Bilirubin,Total 0.1 mg/dL (0.00-1.00); Blood Urea Nitrogen 24 mg/dL (7-18); Calcium 9.4 mg/dL (8.5-10.1); Carbon Dioxide 32 mmol/L (21-32); Chloride 106 mmol/L (98-108); Cholesterol 205 mg/dL (0-200); Estimated Glomerular Filt Rate 54; Glucose 93 mg/dL (70-99); HDL Direct 54 mg/dL (40-60); LDL Cholesterol Calculated 125 mg/dL (<130); Osmolality Calculated 302 mOsm/kg (285-295); Potassium 4.5 mmol/L (3.5-5.1); Sodium 144 mmol/L (136-145); Triglycerides 131 mg/dL (0-150)
[2024-06-19 12:22] LABS: Thyroid Stimulating Hormone Reflex 2.62 u/IU/mL (0.36-3.74)
[2024-06-22 14:33] LABS: Vitamin D 25 Hydroxy 50 ng/mL (30-100)
== END 2024-06-19 11:10 | disposition home or self-care (01) ==
PROVIDERS: PCP Nurse Practitioner Family; Visit Provider Nurse Practitioner Family
DX: Z00.00 Encounter for general adult medical examination without abnormal findings (principal); E55.9 Vitamin D deficiency, unspecified
CPT/HCPCS: 36415; 80053; 80061; 82306; 83036; 84443; 85025

== ENCOUNTER 2024-10-27 15:11 | Outpatient (CLI) | payer BC, OTHER, SELFPAY ==
--- OUTSIDE RECORDS SUMMARY | 2024-10-27 15:16 | XMS_ITS | Continuity of Care Document ---
Author Organization [facility] Address [address] [place] [address] Care Team Providers Care Metallography Teacher Name Role Phone Sea Arellano MD Unavailable Unavailable Procedures Procedure Date Ecg-routine 12 Lead; Intrpt & 2 Ecg-routine 12 Lead; Intrpt & 9 Advance Directives Directive Yes / No Effective Date File Name No Information Encounters Encounter Description Practice Location Reason(s) For Visit Diagnoses Date Provider Providers Copied on Encounter [facility], [address] [place] [address], [facility], [facility] No Information 2 Adan Osei. [address] [place] [address], [facility] [address], [place], [facility], . tel:[phone] Referring Provider: Jean-Claude Parisi DO, [address] [place] [address], [address]. tel:[phone] [facility], [address] [place] [address], [facility], [facility] No Information 9 Komal Tatum. [address] [place] [address], [address], [facility] [address], [place], [id number], [place]. tel:[phone] Referring Provider: Jean-Claude Parisi DO, [address] [place] [address] [facility], [place], [address]. tel:[phone] Family History Family Member Type Diagnosis Age At Onset No Information Payers Payer name Insurance type Covered constitution party ID Authoriza tion(s) BLUE CROSS AND BLUE SHIELD O F [facility] [id number] Social History Type Description Quantity Date Captured [...]
--- OUTSIDE RECORDS SUMMARY | 2024-10-27 15:17 | XMS_ITS | Referral Summary ---
Author Organization [facility] Address [address] [place] [address] Care Team Providers Care Reading Intervention Teacher Name Role Phone Maikol Najera DO Primary Care Provider Varsha Gilliam Unavailable [phone] Santi Hagen Unavailable [phone] Encounters Date Type Department Care Team Description 10/20/2024 Orders Only [facility] Orthopedic and Sports Medicine [address] [place] [phone] Santi Hagen PA Iliotibial band syndrome of right side (Primary Dx) 10/19/2024 3:30 PM CDT Office Visit [facility] Orthopedic and Sports Medicine [address] [place] [phone] Santi Hagen PA Primary osteoarthritis of left knee (Primary Dx); Iliotibial band syndrome of right side from Last 3 Months Allergies No known active allergies Medications metoprolol tartrate (LOPRESSOR) 50 mg immediate release tablet metoprolol tartrate 50 mg tablet TAKE 1 TABLET BY MOUTH TWICE A DAY Active tiZANidine (ZANAFLEX) 4 mg tablet Take 1 tablet (4 mg total) by mouth every 6 (six) hours as needed 2 Active venlafaxine XR (EFFEXOR-XR) 75 mg 24 hr capsule Take by mouth daily 2 Active SUMAtriptan (IMITREX) 100 mg tablet TAKE 1 TABLET BY MOUTH ONCE NEEDED FOR MIGRAINE HEADACHE 2 Active QUEtiapine (SEROquel) 100 mg tablet Take 1 tablet (100 mg total) by mouth nightly 2 Active LORazepam (ATIVAN) 1 mg tablet Take 1 tablet (1 mg total) by mouth every 6 (six) hours as needed 3 Active senna-docusate (PERICOLACE) 8.6-50 mg 1-2 times daily as needed for constipation 60 tablet 1 4 Active Additional Information Patient not taking.Reported on 10/19/2024 ondansetron (ZOFRAN) 4 mg tabletIndicati ons:Prevention of Post-Operative Nausea and Vomiting Take 1 tablet (4 mg total) by mouth every 6 (six) hours as needed for nausea or vomiting 30 tablet 1 4 Active HYDROcodone-ac etaminophen (NORCO) 10-325 mg per tablet Take 1 tablet by mouth every 8 (eight) hours as needed for pain 20 tablet 5 Active HYDROcodone-ac etaminophen (NORCO) 10-325 mg per tablet Take 1 tablet by mouth every 8 (eight) hours as needed for pain 20 tablet 5 025 Discontin [facility], or Other Facility Administered Medication Ordered Dose Route Frequency Start Date End Date Status lidocaine (XYLOCAINE) 20 mg/mL (2 %) injection 3 mLIndications:Admini stration of Local Anesthesia 3 mL One-Time Injection 10/19/2024 5 Ended methylPREDNISolone acetate (DEPO-medrol) injection 80 mgIndications:Primar y osteoarthritis of left knee 80 mg intra-artic One-Time Injection 10/19/2024 5 Ended Active Problems Problem Noted Date [...] (04/27/2022): Added automatically from request for surgery [id number] Overweight 03/14/2022 Sjogren's syndrome 03/14/2022 Fibromyalgia 07/04/2020 Migraine 07/04/2020 Acute upper respiratory infection 08/22/2006 Anemia 06/14/2006 Anxiety 06/04/2006 Joint pain 06/03/2006 Social History Tobacco Use Types Packs/Day Years Used Date Smoking Tobacco: Never Passive Smoke Exposure: Never Smokeless Tobacco: Never Tobacco Cessation:Counseling Given: Not Answered AUDIT-C Answer Date Recorded Q1: How often do you have a drink containing alcohol? Monthly or less 10/19/2024 Q2: How many drinks containi ng alcohol do you have on a typical day when you are drinking? Patient does not drink Q3: How often do you have si x or more drinks on one occasion? 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 95% 12/25/2023 11:02 AM CDT Inhaled Oxygen Concentration - - Weight 105.2 kg (232 lb) 10/19/2024 3:23 PM CDT Height 165.1 cm (5' 5) 10/19/2024 3:23 PM CDT Body Mass Index 38.61 10/19/2024 3:23 PM CDT Plan of Treatment Not on file Medical Devices Implanted Type Area Podiatric Technician Device Identifier Shelf Expiration Date Model / Serial / Lot Plate N/A: Neck [employer] Attune Fb Tib Base Sz 4 Por [id number] - [id number] Implanted:Qty: 1 on 12/24/2023 by Loc Angulo MD at [facility] Right: Knee [employer] 11/12/2033 [id number] / / [id number] [employer] Attune Cruciate Retain Cementless Knee Right 5 Narrow Component [id number] - [id number] Implanted:Qty: 1 on 12/24/2023 by Loc Angulo MD at [facility] Right: Knee [employer] 01/13/2032 [id number] / / [id number] [employer] Insert Tibial Knee Fixed Rm Posterior Stabilized Attune 6mm Size 5 Polyethylene [id number] - [id number] Implanted:Qty: 1 on 12/24/2023 by Loc Angulo MD at [facility] Right: Knee [employer] 05/15/2031 [id number] / / [id number] Procedures Procedure Name Priority Date/Time Associated Diagnosis Comments MA ARTHROCENTESIS ASPIR&/INJ MAJOR JT/BURSA W/O US Routine 10/19/2024 3:30 PM CDT Primary osteoarthritis of left knee from Last 3 Months Results * MA ARTHROCENTESIS ASPIR&/INJ MAJOR JT/BURSA W/O US (10/19/2024 3:30 PM CDT) Narrative Santi Hagen PA - 10/19/2024 3:30 PM CDT Santi Hagen PA 10/19/2024 3:55 PM Large Joint (Hip, Knee, Shoulder) Injection: L [...] [facility]/BEDSIDE ORDERABLE S Final Result from Last 3 Months Insurance [employer] OOS [employer] Advance Directives For more information, please contact: [phone] * Full Code (Latest Code Status on File) Date Activated Date Inactivated Comments 12/24/2023 2:52 PM 12/25/2023 7:50 PM Care Teams Reading Intervention Teacher Relationship Specialty Start Date End Date Maikol Najera DO [address] [place] [address] PCP - General Family Medicine 03/22/22 Varsha Gilliam PA [address] [place] [address] [address] [place] [address] Physician Manager Diabetes Orthopedic Surgery 05/10/22 Santi Hagen PA [address] [place] [address] [address] [place] [address] Physician Manager Diabetes Orthopedic Surgery 12/25/23
--- OUTSIDE RECORDS SUMMARY | 2024-10-27 15:17 | XMS_ITS | Clinical Summary ---
Author Organization [facility] Address [address] [place] [address] Care Team Providers Care Career Development Specialist Name Role Phone Maikol Najera DO Primary [...] for pain 20 tablet 5 025 Discontin [facility], [facility], or Other Facility Administered Medication Ordered [...] (04/27/2022): Added automatically from request for surgery [id number] Overweight 03/14/2022 Sjogren's syndrome 03/14/2022 Fibromyalgia 07/04/2020 Migraine 07/04/2020 Acute upper respiratory infection 08/22/2006 Anemia 06/14/2006 Anxiety 06/04/2006 Joint pain 06/03/2006 Encounters Date Type Department Care Team Description 10/20/2024 Orders Only [facility] Orthopedic and Sports Medicine [address] [place] [phone] Santi Hagen PA Iliotibial band syndrome of right side (Primary Dx) 10/19/2024 3:30 PM CDT Office Visit [facility] Orthopedic and Sports Medicine [address] [place] [phone] Santi Hagen PA Primary osteoarthritis of left knee (Primary Dx); Iliotibial band syndrome of right side from Last 3 Months Surgical History Surgery [...] CDT Respiratory Rate 18 06/15/2024 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 95% 12/25/2023 11:02 AM CDT Inhaled Oxygen Concentration - - Weight 105.2 kg (232 lb) 10/19/2024 3:23 PM CDT Height 165.1 cm (5' 5) 10/19/2024 3:23 PM CDT Body Mass Index 38.61 10/19/2024 3:23 PM CDT Plan of Treatment Health Maintenance Due Date Last Done Comments Colon Cancer Screening-Colonoscopy 1965 Hepatitis C Screening 1965 DTaP/Tdap/Td Vaccine (1 - Tdap) 08/17/1978 Hepatitis B Screening 08/17/1985 Regular Well Visit/Exam 18-64 08/17/1985 Zoster Vaccine (1 of 2) 08/17/2017 Breast Cancer Screening-Mammogram 05/29/2020 05/29/2019 Covid-19 Vaccine ( - season) 2023 07/20/2020 Depression Screening 12/06/2024 12/07/2023 Influenza Vaccine (#1) 2024 9, 04/06/2019, 01/22/2018, Additional history exists Pneumococcal vaccine <65 Aged Out No longer eligible based on patient's age to complete this topic Medical Devices Implanted Type Area Stock Control Clerk Device Identifier Shelf Expiration Date Model / Serial / Lot Plate N/A: Neck [employer] Attune Fb Tib Base Sz 4 Por [id number] - [id number] Implanted:Qty: 1 on 12/24/2023 by Loc Angulo MD at [facility] Right: Knee [employer] 11/12/2033 [id number] / / [id number] [employer] Attune Cruciate Retain Cementless Knee Right 5 Narrow Component [id number] - [id number] Implanted:Qty: 1 on 12/24/2023 by Loc Angulo MD at [facility] Right: Knee [employer] 01/13/2032 [id number] / / [id number] [employer] Insert Tibial Knee Fixed Rm Posterior Stabilized Attune 6mm Size 5 Polyethylene [id number] - [id number] Implanted:Qty: 1 on 12/24/2023 by Loc Angulo MD at [facility] Right: Knee [employer] 05/15/2031 [id number] / / [id number] Procedures Procedure Name Priority Date/Time Associated Diagnosis Comments MS ARTHROCENTESIS ASPIR&/INJ MAJOR JT/BURSA W/O US Routine 10/19/2024 3:30 PM CDT Primary osteoarthritis of left knee from Last 3 Months Results * MS ARTHROCENTESIS ASPIR&/INJ MAJOR JT/BURSA W/O US (10/19/2024 3:30 PM CDT) Narrative Santi Hagen PA - 10/19/2024 3:30 PM CDT Santi Hgaen PA 10/19/2024 3:55 PM Large Joint (Hip, [...] Final Result from Last 3 Months Insurance [facility] OOS [facility] CHO[facility] OOS [employer] Advance Directives For more information, please contact: [phone] * Full Code (Latest Code Status on File) Date Activated Date Inactivated Comments 12/24/2023 2:52 PM 12/25/2023 7:50 PM Care Teams Career Development Specialist Relationship Specialty Start Date End Date Maikol Najera DO [address] [place] [id number] PCP - General Family Medicine 03/22/22 Varsha Gilliam PA [address] [place] [address] [address] [place] [address] Physician Capital Project Engineer Orthopedic Surgery 05/10/22 Santi Hagen PA [address] [place] [address] [address] [place] [address] Physician Capital Project Engineer Orthopedic Surgery 12/25/23
--- OUTSIDE RECORDS SUMMARY | 2024-10-27 15:17 | XMS_ITS | Data Portability ---
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 Plan of Treatment Reminders Order Date Submit Date Provider Last Modified By Organization Details Last Modified Time Details Appointments None recorded. Lab cytology report, smear or scraping, cervical or vaginal - [id number] 2021 022 [id number]_ [id number] [facility], [address], [facility] [address], [place], [address], 3 03:32:00 glycohemog lobin, total, blood 2018 019 BRODIE Manriquez, [address] [place], [address], 0 04:54:51 coronary risk panel, serum 2018 019 BRODIE Manriquez, [place], [address], 0 03:30:03 CBC 2018 019 BRODIE Manriquez, [address] [place], [address], 0 03:18:06 TSH, serum or plasma 2018 019 [facility], [address], [place], [address], 0 04:04:19 CMP, serum or plasma 2018 019 [facility], [address] [address], [place], [address], 0 03:30:02 pap, IG 2018 019 [place] [facility], [address], [address], [place], [address], 9 14:06:[address]/dietiti an referral [email or web address] [place] [address] ([facility]), [address], [place], [address], 9 17:13:15 Procedures None recorded. Surgeries None recorded. Imaging US, breast, unilateral 2021 022 [email or web address] [facility], [address], [place], [address], 3 10:55:18 US, breast, unilateral 2021 022 [email or web address] [facility], [address], [place], [address], 3 10:55:19 MAMMO, screening, tomosynthe sis, bilateral 2018 019 [email or web address] [facility], [address], [place], [address], 0 10:40:07 Medication Orders amitriptyl ine 75 mg tablet [address] [facility], [address], [place], [place], [id number], 2 11:03:18 Medrol (Ramirez) 4 mg tablets in a dose pack [address] [facility] #47708, [address], [place], [place], [id number], 2 11:03:45 amitriptyl ine 50 mg tablet [address]78316, [address], [place], [place], [id number], 1 11:49:56 tizanidine 4 mg tablet 2018 019 INTERFACE [facility], [address], [place], [place], [id number], 9 12:19:30 Premarin 0.3 mg tablet [address] [facility]182, [address] [place], [place], [id number], 11:04:10 amitriptyl ine 25 mg tablet [address] [facility]99000, [address] [place], [place], [id number], 11:49:45 Patient TargetsNo targets recorded. Patient Instructions Encounter Date Encounter Id Patient Instructions Last Modified By Organization Details Last Modified Time 02/13/2019 [id number] When You Want to Lose Weight: Care Instructions [email or web address] Not available 02/13/2019 11:45:32 basic diet advice ostenm Not availabl e 02/13/2019 11:45:32 exercise ostenm Not available 2018 11:45:32 likely the cymbalta is ineffective will need a change exercise in a pool dietitian ref ostenm Not available 02/13/2019 11:42:46 03/10/2019 [id number] basic diet advice [email or web address] Not africaai todd 03/10/2019 18:36:25 exercise [id number] Not available 18:36:25 11/20/2021 [id number] A periodic well woman exam is an important preventative health visit specifically designed for women. It is designed to promote healthy living, prevent common illnesses and reduce morbidity and mortality throughout a woman's life. A well woman exam can not only screen for common disorders like cancer, cardiovascular disease, and diabetes, but can also assist with family planning and promote a preconception healthy lifestyle to reduce negative outcomes. 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 Not Available [facility] ([facility]) [address] [facility], [place], [address], 03/14/2019 14:06:59 03/10/2003/14/2019 pap, IG specimen adequacy: Commen t Satis facto ry for evalu ation . No endoc ervic al cells are prese nt. This is consi stent with a histo ry of hyste recto my. Not Available [facility] ([facility]) [address] [place], [address], 03/14/2019 14:06:59 03/10/20 19 03/14/2019 pap, IG clinician provided ICD10: Commen t Z01.4 19 Z12.7 2 Not Available [facility] ([facility]) [address] [place], [address], 03/14/2019 14:06:59 03/10/20 19 03/14/2019 pap, IG performed by: Constance Soliz th, Cytot gagan avila (ASCP ) Not Available [facility] ([facility]) [address] [place], [address], 03/14/2019 14:06:59 03/10/20 19 03/14/2019 pap, IG . . Not Available [facility] ([facility]) [address] [place], [address], 03/14/2019 14:06:59 03/10/20 19 03/14/2019 pap, IG note: Constance avila The Pap smear is a scree kinjal test desig agueda to aid in the detec tion of rivas ligna nt and malig nant condi tions of the uteri ne cervi x. It is not a diagn ostic proce dure and shoul d not be used as the sole means of detec ting cervi zenon cance r. Both false -posi tive and false -nega tive repor ts do occur . Not Available [facility] ([facility]) [address] [facility], [place], [address], 03/14/2019 14:06:59 03/10/20 19 03/14/2019 pap, IG test methodology: Constance avila This liqui d based ThinP rep(R ) pap test was scree agueda with the use of an image guide d systharry m. Not Available [facility] ([facility]) [address] [place], [address], 03/14/2019 14:06:59 05/29/1905/29/2019 CBC WBC 6.4 x1000 /uL 4.0-11 .0 Not Available [facility] [address], [place], [address], 05/30/2019 03:18:06 05/29/19 20 05/29/2019 CBC RBC 4.83 xmil/ uL 3.63-5 .04 Not Available [facility] [place], [address], 05/30/2019 03:18:06 05/29/19 20 05/29/2019 CBC HGB 12.4 g/dL 12.0-1 5.3 Not Available [facility] [place], [address], 05/30/2019 03:18:06 05/29/19 20 05/29/2019 CBC HCT 38.4 % 34.7-4 5.1 Not Available [facility] [address] [place], [address], 05/30/2019 03:18:06 05/29/19 20 05/29/2019 CBC MCV 79.5 fL 80.0-1 00.0 low Not Available [facility] [place], [address], 05/30/2019 03:18:06 05/29/1905/29/2019 CBC MCH 25.7 pg 26.0-3 4.0 low Not Available [facility] [place], [address], 05/30/2019 03:18:06 05/29/1905/29/2019 CBC MCHC 32.4 g/dL 32.5-3 5.8 low Not Available [facility] [address] [place], [address], 05/30/2019 03:18:06 05/29/1905/29/2019 CBC RDW 14.1 % 11.9-1 5.9 Not Available [facility] [place], [address], 05/30/2019 03:18:06 05/29/1905/29/2019 CBC plt 327 x1000 /uL 150-45 0 Not Available [facility] [place], [address], 05/30/2019 03:18:06 05/29/19 20 05/29/2019 CBC mean plat.volume 9.0 fL 6.8-10 .2 Not Available [facility] [place], [address], 05/30/2019 03:18:06 05/29/19 20 05/29/2019 CBC neutrophil % 62.9 % Not Kari ilable [facility] [address] [place] [address] [place], [address], 05/30/2019 03:18:06 05/29/1905/29/2019 CBC lymphocyte % 27.2 % Not Kari ilable [facility] [address] [place] [address] [place], [address], 05/30/2019 03:18:06 05/29/1905/29/2019 CBC monocyte % 5.8 % Not Avail able [facility] [place], [address], 05/30/2019 03:18:06 05/29/1905/29/2019 CBC eosinophil % 2.7 % Not Kari ilable [facility] [address] [place] [address] [place], [address], 05/30/2019 03:18:06 05/29/1905/29/2019 CBC basophil % 1.4 % Not Avail able [facility] [address] [place] [address] [place], [address], 05/30/2019 03:18:06 05/29/1905/29/[address] 4.0 x1000 /uL 1.7-7. 7 NOTE: To calcu late for autom ated Absol samish Neutr ophil Count (uL) multi ply this resul t by 1000. Not Available [facility] [address] [place] [address] [place], [address], 05/30/2019 03:18:06 05/29/19 20 05/29/[address] 1.7 x1000 /uL 0.6-3. 4 Not Available [facility] [address] [place] [address] [place], [address], 05/30/2019 03:18:06 05/29/19 20 05/29/[address] 0.4 x1000 /uL 0.3-1. 0 Not Available [facility] [address] [place] [address] [place], [address], 05/30/2019 03:18:06 05/29/19 20 05/29/[address] 0.2 x1000 /uL 0.0-0. 5 Not Available [facility] [address] [place] [address] [place], [address], 05/30/2019 03:18:06 05/29/19 20 05/29/[address] 0.1 x1000 /uL 0.0-0. 2 PERFO RMED BY:SUSHILA DAWN [facility], [facility]4 [facility] [place] [address] [phone] Not Available [facility] [address] [place] [address] [place], [address], 05/30/2019 03:18:06 05/29/19 20 05/29/2019 CMP, serum or plasm a sodium 142 mEq/L 133-14 4 Not Available [facility] [address] [place] [address] [place], [address], 05/30/2019 03:30:02 05/29/1905/29/2019 CMP, serum or plasm a potassium 4.7 mEq/L 3.5-5. 1 Not Available [facility] [address] [place] [address] [place], [address], 05/30/2019 03:30:02 05/29/19 20 05/29/2019 CMP, serum or plasm a chloride 103 mEq/L 98-107 Not Available [facility] [address] [place], [address], 05/30/2019 03:30:02 05/29/19 20 05/29/2019 CMP, serum or plasm a glucose 119 mg/dL 70-99 high Not Available [facility] [place], [address], 05/30/2019 03:30:02 05/29/19 20 05/29/2019 CMP, serum or plasm a BUN 24 mg/dL 7-25 Not Available [facility] [place], [address], 05/30/2019 03:30:02 05/29/19 20 05/29/2019 CMP, serum or plasm a creatinine 0.9 mg/dL 0.6-1. 2 Not Available [facility] [place], [address], 05/30/2019 03:30:02 05/29/19 20 05/29/2019 CMP, serum or plasm a calcium 9.6 mg/dL 8.6-10 .3 Not Available [facility] [place], [address], 05/30/2019 03:30:02 05/29/19 20 05/29/2019 CMP, serum or plasm a protein 6.9 g/dL 6.4-8. 9 Not Available [facility] [address] [place], [address], 05/30/2019 03:30:02 05/29/19 20 05/29/2019 CMP, serum or plasm a albumin 4.0 g/dL 3.5-5. 7 Not Available [facility] [address] [place], [address], 05/30/2019 03:30:02 05/29/19 20 05/29/2019 CMP, serum or plasm a bilirubin, tot. 0.2 mg/dL 0.0-1. 0 Not Available [address] [place], [address], 05/30/2019 03:30:02 05/29/19 20 05/29/2019 CMP, serum or plasm a alk phos 84 U/L 34-104 Not Available [address] [place], [address], 05/30/2019 03:30:02 05/29/19 20 05/29/2019 CMP, serum or plasm a AST (SGOT) 13 U/L 13-39 Not Available [address] [place], [address], 05/30/2019 03:30:02 05/29/19 20 05/29/2019 CMP, serum or plasm a carbon dioxide 26.4 mEq/L 21.0-3 1.0 Not Available [address] [place], [address], 05/30/2019 03:30:02 05/29/19 20 05/29/2019 CMP, serum or plasm a ALT (SGPT) 10 U/L 7-52 Not Available [address] [place], [address], 05/30/2019 03:30:02 05/29/1905/29/2019 CMP, serum or plasm a anion gap 12.6 mEq/L 6.2-14 .7 Pleas e note new refer ence range effec tive 05/26 . PERFO RMED BY:SUSHILA QIU , [facility]4 [facility] [place] [address] [phone] Not Available [facility] [address] [facility] [place], [address], 05/30/2019 03:30:02 05/29/19 20 05/29/2019 coron jesus risk panel , serum cholesterol 225 mg/dL <200 high Not Available [facility] [address] [facility] [place], [address], 05/30/2019 03:30:03 05/29/19 20 05/29/2019 coron jesus risk panel , serum triglyceride s 116 mg/dL <150 Not Available [facility] [address] [facility] [place], [address], 05/30/2019 03:30:03 05/29/19 20 05/29/2019 coron jesus risk panel , serum HDL cholesterol 57 mg/dL >40 Not Available [facility] [place], [address], 05/30/2019 03:30:03 05/29/19 20 05/29/2019 coron jesus risk panel , serum LDL, calculated 145 mg/dL 0-129 high Not Available [facility] [place], [address], 05/30/2019 03:30:03 05/29/19 20 05/29/2019 coron jesus risk panel , serum non HDL cholesterol 168 mg/dL <130 high Not Available [facility] [place], [address], 05/30/2019 03:30:03 05/29/19 20 05/29/2019 coron ejsus risk panel , serum chol./HDL ratio 3.9 <=5 Not Available [facility] [address] [facility] [place], [address], 05/30/2019 03:30:03 05/29/19 20 05/29/2019 coron jesus risk panel , serum VLDL calculated 23 mg/dL 5-30 ADDIT IONAL INFOR [facility] N: For clini zenon asses sment and manag ement of hyper jeane stero lemia guide lines pleas e visit the websi te below : http: //www .nhlb i.nih .gov/ files /docs /guid obdulia s/atg miller .pdf PERFO RMED BY:SUSHILA VILLATOROI , [address] [facility] [place] [address] [phone] Not Available [facility] [address] [place], [address], 05/30/2019 03:30:03 05/29/19 20 05/29/2019 GFR, estim ated (eGFR ), serum eGFR non- amer. >60 >60 Not Available [facility] [address] [place], [address], 05/30/2019 03:30:04 05/29/19 20 05/29/2019 GFR, estim ated (eGFR ), serum eGFR >60 >60 This estim ate shoul d be used for scree kinjal purpo ses only. A creat inine clear ance shoul d be obtai agueda for use adjus ting medic ation dosag es or when choos ing poten tiall y nephr otoxi c medic ation s. eGFR is being calcu lated using the CKD-E PI equat ion, and resul ts are in mL/mi n/1.7 3/m2 PERFO RMED BY:SUSHILA VILLATOROI , [address] [facility] [place] [address] [phone] Not Available [facility] [address] [place], [address], 05/30/2019 03:30:04 05/29/19 20 05/29/2019 TSH, serum or plasm a TSH 3.814 uIU/m L 0.270- 4.200 PERFO RMED BY:SUSHILA VILLATOROI , [address] [facility] [place] [address] [phone] Not Available [facility] [address] [place], [address], 05/30/2019 04:04:19 05/29/19 20 05/29/2019 glyco hemog lobin , total , blood %A1C 6.1 % <5.7 high Refer ence Range for the diagn osis of diabe lorraine in nonpr egnan t patie nts: >=6.5 % diabe lorraine is prese nt 5.7% - 6.4% at risk for diabe lorraine Not Available [facility] [place], [address], 05/30/2019 04:54:51 05/29/19 20 05/29/2019 glyco hemog lobin , total , blood est. avg. glucose 128 mg/dL PERFO RMED BY:AL VERROZ LABOR AT[facility]I ES, [address] [facility] [place] [address] [phone] Not Available [facility] [address] [place], [place] [address], [address], 05/30/2019 04:54:51 04/06/20 20 04/06/2020 coron jesus risk panel , serum cholesterol 193 mg/dL <200 Not Available [facility] [address] [place] [address] [place], [address], 04/07/2020 01:13:15 04/06/20 20 04/06/2020 coron jesus risk panel , serum triglyceride s 84 mg/dL <150 Not Available [facility] [address] [place] [address] [place], [address], 04/07/2020 01:13:15 04/06/20 20 04/06/2020 coron jesus risk panel , serum HDL cholesterol 61 mg/dL >40 Not Available [facility] [place], [address], 04/07/2020 01:13:15 04/06/20 20 04/06/2020 coron jesus risk panel , serum LDL, calculated 115 mg/dL 0-129 Not Available [facility] [address] [place], [address], 04/07/2020 01:13:15 04/06/20 20 04/06/2020 coron jesus risk panel , serum non HDL cholesterol 132 mg/dL <130 high Not Available [facility] [address] [facility] [place], [address], 04/07/2020 01:13:15 04/06/20 20 04/06/2020 coron jesus risk panel , serum chol./HDL ratio 3.2 <=5 Not Available [facility] [address] [place], [address], 04/07/2020 01:13:15 04/06/2004/06/2020 coron jesus risk panel , serum VLDL calculated 17 mg/dL 5-30 ADDIT IONAL INFOR [facility] N: For clini zenon asses sment and manag ement of hyper jeane stero lemia guide lines pleas e visit the websi te below : http: //www .nhlb i.nih .gov/ files /docs /guid obdulia s/atg miller .pdf PERFO RMED BY:SUSHILA VILLATOROI , [address] [facility] [place] [address] [phone] Not Available [facility] [address] [place], [place] [address], [address], 04/07/2020 01:13:15 04/06/2004/06/2020 glyco hemog lobin , total , blood %A1C 6.2 % <5.7 high Refer ence Range for the diagn osis of diabe lorraine in nonpr egnan t patie nts: >=6.5 % diabe lorraine is prese nt 5.7% - 6.4% at risk for diabe lorraine Not Available [facility] [place], [address], 04/07/2020 01:42:15 04/06/20 04/06/2020 glyco hemog lobin , total , blood est. avg. glucose 131 mg/dL PERFO RMED BY:SUSHILA VERROZ LABOR ATORI , [address] [facility] [place] [address] [phone] Not Available [facility] [address] [place], [address], 04/07/2020 01:42:15 11/21/19 22 11/22/2021 PAP IG (IMAG E GUIDE D) diagnosis: Constance MARTIN FOR INTRA EPITH ELIAL LESIO N OR GABE CHAPMAN . Not Available [facility] ([facility]) [address] [facility], [place], [address], 11/22/2021 17:07:22 11/21/19 22 11/22/2021 PAP IG (IMAG E GUIDE D) specimen adequacy: Constance avila Satis facto ry for evalu ation . No endoc ervic al compo nent is ident ified . Not Available [facility] ([facility]) [address] [place], [address], 11/22/2021 17:07:22 11/21/19 22 11/22/2021 PAP IG (IMAG E GUIDE D) clinician provided ICD10: Constance avila Z01.4 19 Z12.4 Z12.7 2 Not Available [facility] ([facility]) [address] [place], [address], 11/22/2021 17:07:22 11/21/19 22 11/22/2021 PAP IG (IMAG E GUIDE D) performed by: Jaycee Greer (ASCP ) Not Available [facility] ([facility]) [address] [place], [address], 11/22/2021 17:07:22 11/21/19 22 11/22/2021 PAP IG (IMAG E GUIDE D) . . Not Available [facility] ([facility]) [address] [facility], [place], [address], 11/22/2021 17:07:22 11/21/19 22 11/22/2021 PAP IG (IMAG E GUIDE D) note: Commen t The Pap smear is a scree kinjal test desig agueda to aid in the detec tion of rivas ligna nt and malig nant condi tions of the uteri ne cervi x. It is not a diagn ostic proce dure and shoul d not be used as the sole means of detec ting cervi zenon cance r. Both false -posi tive and false -nega tive repor ts do occur . Not Available [facility] ([facility]) [address] [facility], [place], [address], 11/22/2021 17:07:22 11/21/19 22 11/22/2021 PAP IG (IMAG E GUIDE D) test methodology: Commen t This liqui d based ThinP rep(R ) pap test was scree agueda with the use of an image guide d syste m. Not Available [facility] ([facility]) [address] [facility], [place], [address], 11/22/2021 17:07:22 05/29/19 20 05/29/2019 MAMMO , scree kinjal, tomos ynthe sis, bilat eral Patialex t Name: SHEILA JANELL Cummings : [birth year][address] [place] [address] s [facility] s [address] [place] [address] [place] [address]- Radiol ogy Report s CPT code 54590 70964 CDM code CDM descri ption [id number] 2 MA Mammog shahriar Screen Implan t Dig Jian Pernell [id number] 3 MA Tomosy nthesi s Screen Add On Reason For Exam Screen ing Report Reason for exam: screen ing, asympt omatic . MA Mammog shahriar Screen Implan t Dig Jian Pernell: 2019 - Check In #: [id number] 2D/3D Proced ure Prior study compar blank: Decemb er 20, 2017, bilate ral MA mammog shahriar screen implan t digita l pernell, perfor med at [facility] . Novemb er , 2016, digita l implan t screen ing bilate ral perfor med at [facility] [place] . Octobe r 3, 2015, digita l implan t screen ing bilate ral, perfor med at [facility] [place] . Septem amanda 2014, digita l implan t screen ing bilate ral, perfor med at [facility] [place] . October 02, 2013, digita l implan t screen ing bilate ral, perfor med at [facility] . BI-RAD S breast densit y catego ry B. There are mixed areas of fibrog landul ar densit y. CC and MLO views of the breast s were obtain ed with and withou t implan t displa cement . Bilate ral 3D tomosy nthesi s was perfor med.Th e breast parenc hyma is compos ed of mixed fatty and fibrog landul ar elemen ts in stable distri bution . No domina nt mass, suspic ious cluste r of micro calcif icatio ns, or area of cee ectura l distor tion is seen. There are bilate ral benign type calcif icatio ns. The axilla ry region s mainta in a benign appear ance. There is mild angula tion to the saline implan ts bilate rally on the MLO views, left greate r than right, when compar ed to previo us. Correl ate clinic ally. ASSESS MENT: ACR BI-RAD S: BI-RAD S 2 - Benign . Benign findin gs withou t featur es of malign gaby Recomm endati on Routin e screen ing mammog shahriar in 1 year. Risk Value( s): Tyrer- Cuzick 10 Year: 2.900% , Tyrer- Cuzick Lifeti me: 11.600 %, Myriad Table: 1.5%, PATRICIA 5 Year: 1.2%, NCI Lifeti me: 10.6% Patien t Histor y Radiol ogy Report s Report Patien t is postme nopaus al. No known family histor y of cancer . Saline implan ts in both breast s, November 13, 2004. Taking estrog en beginn ing at age 48. Sangeetha avila has never smoked . Sangeetha avila's BMI is 28.2. Last mammog shahriar was perfor med 1 year and 2 months ago. Electr onical ly signed and approv ed by: Iva Saldivar MD Mammog patric Final Transc ribed by: SVM 15:48 Signed by: VALENTIN MTZ, IVA Delgado 15:48 Techno logist : JESSIE [email or web address] [facility] (Imaging) [address] [facility], [place], [address], 05/30/2019 10:15:17 11/21/1911/02/2021 MAMMO , bilat eral and US, breas t, bilat eral No observ ation record ed. BARCODE Not Available 2021 14:50:45 Result Notes Documentation Provider Name and Address Organization Details Recorded Time Mammo, Screening, Tomosynthesis, Bilateral : Patient Name: JANELL LOMAX : [address] [address]- Radiology Reports CPT code 03992 [id number] CDM code CDM description [id number] [place] Mammogram Screen Implant Dig Jian Pernell [id number] MA Tomosynthesis Screen Add On Reason For Exam Screening Report Reason for exam: screening, asymptomatic. MA Mammogram Screen Implant Dig Jian Pernell: May 29, 2019 - Check In #: [id number] 2D/3D Procedure Prior study comparison: April 03, 2018, bilateral MA mammogram screen implant digital pernell, performed at [facility]. March 06, 2017, digital implant screening bilateral performed at [facility]. January 16, 2016, digital implant screening bilateral, performed at [facility]. January 10, 2015, digital implant screening bilateral, performed at [facility]. October 02, 2013, digital implant screening bilateral, performed at [facility]. BI-RADS breast density category B. There are mixed areas of fibroglandular density. CC and MLO views of the breasts were obtained with and without implant displacement. Bilateral 3D tomosynthesis was performed.The breast parenchyma is composed of mixed fatty and fibroglandular elements in stable distribution. No dominant mass, suspicious cluster of micro calcifications, or area of architectural distortion is seen. There are bilateral benign type calcifications. The axillary regions maintain a benign appearance. There is mild angulation to the saline implants bilaterally on the MLO views, left greater than right, when compared to previous. Correlate clinically. ASSESSMENT: ACR BI-RADS: BI-RADS 2 - Benign. Benign findings without features of malignancy Recommendation Routine screening mammogram in 1 year. Risk Value(s): Tyrer-Cuzick 10 Year: 2.900%, Tyrer-Cuzick Lifetime: 11.600%, Myriad Table: 1.5%, PATRICIA 5 Year: 1.2%, NCI Lifetime: 10.6% Patient History Radiology Reports Report Patient is postmenopausal. No known family history of cancer. Saline implants in both breasts, November 13, 2004. Taking estrogen beginning at age 48. Patient has never smoked. Patient's BMI is 28.2. Last mammogram was performed 1 year and 2 months ago. Electronically signed and approved by: Iva Saldivar MD Mammography Final Transcribed by: CAITLYN 05/29/19 15:48 Signed by: VALENTIN MTZ, IVA Delgado 05/29/19 15:48 Technologist: Rachid Reinoso DO [address], [place], [address], [facility] 05/30/2019 10:15:17 Problems Name Problem SNOMED Code Status Onset Date Resolution Date Notes Provider Name and Address Organization Details Recorded Time Backache [id number] Completed 07/04/2020 Nichole Espinosa MD [address], [place], [address] , [facility] 1 15:40:01 Menopausal flushing 132653376 Completed 07/04/2020 Nichole Espinosa MD [address], [place], [address] , [place] [facility] 15:40:04 Neck pain 00521971 Completed 07/04/2020 Nichole Espinosa MD [address], [place], [address] , [place] [facility] 15:40:58 Sinusitis 38165678 Completed 07/04/2020 Nichole Espinosa MD [address], [place], [address] , [place] [facility] 15:40:34 Visual disturbanc e 82802090 Completed 07/04/2020 Nichole Espinosa MD [address], [place], [address] , [facility] 15:41:01 [facility]j gren's syndrome 44946437 [facility] 12:36:44 Fatigue 51607429 Completed 07/04/2020 Nichole Espinosa MD [address], [place], [address] , [place] [facility] 15:41:05 Concussion with no loss of consciousn ess 69658827 Completed 07/04/2020 Nichole Espinosa MD [address], [place], [address] , [place] [facility] 15:40:54 Acute upper respirator y infection 57092693 Completed 200607/04/2020 Nichole Espinosa MD [address], [place], [address] , [place] [facility] 15:40:44 Cough 13503958 Completed 07/04/2020 Nichole Espinosa MD [address], [place], [address] , [place] [facility] 15:40:37 Abdominal pain 50730677 Completed 07/04/2020 Nichole Espinosa MD [address], [place], [address] , [place] [facility] 15:40:09 Pain of joint 96187150 Completed 200607/04/2020 Nichole Espinosa MD [address], [place], [address] , [facility] 15:40:51 Knee pain Completed 07/04/2020 Nichole Espinosa MD [address], [place], [address] , [place] [facility] 15:40:30 Migraine without aura 04277250 Completed 07/04/2020 Nichole Espinosa MD [address], [place], [address] , [place] [facility] 15:40:48 Anxiety 48523276 Active 2006 ADELIA Clayton [address], [place], [address] , [place] [facility] 6 13:17:30 Anemia 929619114 Active 2006 Yen field [facility] 6 12:36:44 Overweight 687738891 Active Yen field [facility] 6 12:36:44 Migraine 94510095 Completed 200607/04/2020 Nichole Espinosa MD [address], [place], [address] , [facility] 15:43:07 Glucose level outside reference range 025020407 Completed 07/04/2020 Nichole Espinosa MD [address], [place], [address] , [facility] 15:39:55 Bronchitis 13028585 Completed 07/04/2020 Nichole Espinosa MD [address], [place], [address] , [facility] 15:40:28 Acute bronchitis 21168478 Completed 07/04/2020 Nichole Espinosa MD [address], [place], [address] , [facility] 15:39:58 Insomnia 693736002 Completed 07/04/2020 Nichole Espinosa MD [address], [place], [address] , [facility] 15:40:07 Malaise and fatigue 597190006 Completed 07/04/2020 Nichole Espinosa MD [address], [place], [address] , [facility] 15:40:25 Migraine 60646356 Active 2020 Nichole Espinosa MD [address], [place], [address] , [facility] 15:43:07 Fibromyalg ia 120602304 Active 2020 Nichole Espinosa MD [address], [place], [address] , [facility] 15:43:16 Problem Notes None recorded. Procedures Surgical History Date Name Laterality Status Provider Name and Address Organization Details Recorded Time 10/14/19 Date of Last Mammogram completed Mary Kate Roberson [facility] 11/20/2021 11:05:43 03/18/20 19 screening for malignant neoplasm of cervix completed Yen Villa [facility] 04/06/2019 11:17:20 03/10/20 19 Date of Last Pap Smear completed Mary Kate Roberson [facility] 11/15/2021 09:18:49 02/25/20 15 Date of Last Colonoscopy completed Yen Villa [facility] 05/15/2017 12:21:56 02/25/[address] [facility] 04/03/2018 13:16:33 02/25/20 15 Colonoscopy completed Yen [facility] 05/15/2017 12:22:43 02/25/20 15 EGD completed Yen [facility] 05/15/2017 12:22:55 04/15/19 05 Other completed [place]en [place] [facility] 11/23/2011 11:25:50 04/15/18 96 delivery completed Yen [facility] 11/23/2011 11:27:27 augmentation of bilateral breasts completed [facility] 04/03/2018 13:24:15 loop electrosurgical excision procedure completed [facility] 04/03/2018 13:24:27 total abdominal hysterectomy with bilateral salpingo-oophorect titi completed [facility] 04/03/2018 13:24:45 excision of cervical intervertebral disc completed [facility] 04/03/2018 13:25:11 Dilation and curettage completed [facility] 04/03/2018 13:25:30 Imaging Results None recorded. Procedure Notes None recorded. Medical Equipment None Reported. Allergies No known drug allergies Medications Name Sig Start Date Stop Date Status Note LastModified by Organization Details LastModified Time quetiapin e 25 mg tablet TAKE 3 TABLETS BY MOUTH AT BEDTIME active Not Available Not Available No t Available amoxicill in 500 mg capsule 02/16 completed updated 02-17-20 15 Not Available Not Available Not Available buspirone 5 mg tablet TAKE 1 TABLET BY MOUTH TWICE DAILY 08/13 completed Not Available Not Available Not Available bupropion HCl SR 150 mg tablet,12 hr sustained -release TAKE 1 TABLET BY MOUTH DAILY IN THE MORNING WITH FOOD 11/20 completed Not Available Not Available Not Available pilocarpi ne 5 mg tablet one tid prn 11/21 completed UPDATED 11-22-19 16 Not Available Not Available Not Available venlafaxi ne ER 75 mg capsule,e xtended release 24 hr TAKE 1 CAPSULE BY MOUTH EVERY DAY active Not Available Not Available No t Available doxycycli ne hyclate 100 mg capsule TAKE ONE CAPSULE BY MOUTH TWICE DAILY FOR 7 DAYS active Not Available Not Available No t Available clindamyc in HCl 300 mg capsule 02/16 completed updated 02-17-20 15 Not Available Not Available Not Available trazodone 50 mg tablet 50 MG ORALLY EVERY DAY AT BEDTIME NEEDED FOR INSOMNIA DO NOT TAKE WITH TIZANIDI NE active Not Available Not Available No t Available azithromy scooby 250 mg tablet take 2 tabs po today then 1 po q day x 4 days 01/22 completed Not Available Not Available Not Available ibuprofen 800 mg tablet TK 1 T PO BID WITH FOOD active Not Available Not Available No t Available amitripty line 75 mg tablet TAKE 1 TABLET BY MOUTH EVERY DAY 11/20 completed Not Available Not Available Not Available tizanidin e 4 mg tablet TAKE 1 TABLET BY MOUTH EVERY DAY NEEDED FOR MUSCLE SPASTICI TY active Not Available Not Available No t Available benzonata te 200 mg capsule TAKE 1 CAPSULE BY MOUTH THREE TIMES DAILY 01/03 completed updated 01-04-20 15 Not Available Not Available Not Available sumatript an 100 mg tablet TAKE 1 TABLET BY MOUTH ONCE NEEDED FOR MIGRAINE HEADACHE active Not Available Not Available No t Available hydrocodo ne 5 mg-acetam inophen 325 mg tablet active Not Available Not Available Not Available minocycli ne 100 mg capsule TK ONE C PO QHS 10/19 completed updated 10-20-19 15 Not Available Not Available Not Available naltrexon e 50 mg tablet TAKE 1/2 TABLET BY MOUTH EVERY MORNING 11/20 completed Not Available Not Available Not Available ibuprofen 200 mg capsule Take 2 capsules every 6 hours by oral route. 10/19 completed Not Available Not Available Not Available metronida zole 0.75 % (37.5 mg/5 gram) vaginal gel 02/10 completed Not Available Not Available Not Available ondansetr on HCl 4 mg tablet active Not Available Not Available No t Available prednison e 20 mg tablet 01/22 completed Not Available Not Available Not Available rizatript an 10 mg tablet Take 1 tablet every day by oral route. 09/10 completed Not Available Not Available Not Available sertralin e 100 mg tablet Take 1.5 tablets every day by oral route for 30 days. 11/21 completed UPDATED 11-22-19 16 Not Available Not Available Not Available quetiapin e 200 mg tablet TAKE 1 TABLET BY MOUTH AT BEDTIME active Not Available Not Available No t Available venlafaxi ne ER 150 mg capsule,e xtended release 24 hr TAKE 1 CAPSULE BY MOUTH EVERY DAY active Not Available Not Available No t Available aspirin 81 mg tablet,de layed release active Not Available Not Available Not Available tramadol 50 mg tablet TAKE 1 TABLET (50 MG TOTAL) BY MOUTH EVERY 8 (EIGHT) HOURS NEEDED FOR PAIN. active Not Available Not Available No t Available quetiapin e 100 mg tablet TAKE 1 TABLET BY MOUTH EVERY DAY AT BEDTIME active Not Available Not Available No t Available amitripty line 50 mg tablet TK 1 T PO QD 06/10 completed Not Available Not Available Not Available zolmitrip contreras 5 mg tablet Take 1 tablet every day by oral route. 01/03 completed updated 01-04-20 15 Not Available Not Available Not Available guaifenes in 200 mg tablet ONE TABLET BY MOUTH FOUR TIMES DAILY NEEDED FOR CONGESTI ON active Not Available Not Available No t Available cefadroxi l 500 mg capsule TK 1 C PO BID WF 02/16 completed updated 02-17-20 15 Not Available Not Available Not Available alprazola m 0.25 mg tablet TAKE 1 TABLET BY MOUTH TWICE DAILY active Not Available Not Available No t Available amitripty line 25 mg tablet TAKE 1 TABLET BY MOUTH EVERY DAY AT BEDTIME 06/10 completed Not Available Not Available Not Available lorazepam 0.5 mg tablet TAKE 1 TABLET BY MOUTH TWICE A DAY NEEDED 2022 active Not Available Not Available Not Avai lable benzonata te 100 mg capsule TK 1 TO 2 CS PO Q 8 H PRF NON PRODUCTI VE COUGH 01/22 completed Not Available Not Available Not Available pantopraz ole 40 mg tablet,de layed release active Not Available Not Available Not Available naproxen sodium 550 mg tablet 12/17 completed Not Available Not Available Not Available buspirone 10 mg tablet Take 1 tablet twice a day by oral route for 90 days. 04/07 completed Not Available Not Available Not Available metoprolo l tartrate 50 mg tablet TAKE 1 TABLET BY MOUTH TWICE DAILY active Not Available Not Available No t Available gabapenti n 300 mg capsule one tid 11/21 completed UPDATED 11-22-19 16 Not Available Not Available Not Available Advil 200 mg tablet Take 2 tablets every day by oral route as needed. active Not Available Not Available No t Available hydrocodo ne 5 mg-acetam inophen 500 mg tablet 02/03 completed Not Available Not Available Not Available zolpidem 5 mg tablet TAKE 1 TABLET BY MOUTH EVERY DAY AT BEDTIME 11/21 completed UPDATED 11-22-19 16 Not Available Not Available Not Available gabapenti n 100 mg capsule Take 3 capsules 3 times a day by oral route as needed. active Not Available Not Available No t Available estradiol 0.5 mg tablet TAKE 1 TABLET BY MOUTH EVERY DAY active Not Available Not Available No t Available lorazepam 1 mg tablet TAKE 1/2 TABLET BY MOUTH DAILY 2023 active Not Available Not Available Not Avai lable ibuprofen 600 mg tablet 02/16 completed updated 02-17-20 15 Not Available Not Available Not Available zolpidem 10 mg tablet Take 1 tablet every day by oral route at bedtime. 06/05 completed LEFT MESSAGE ON PHARMACY , CALLED IN #30/RF-3 .MLB 03-02-20 16 Not Available Not Available Not Available methylpre dnisolone 4 mg tablets in a dose pack TAKE 6 TABLETS ON DAY 1 DIRECTED ON PACKAGE AND DECREASE BY 1 TAB EACH DAY FOR A TOTAL OF 6 DAYS active Not Available Not Available No t Available fluticaso ne propionat e 50 mcg/actua tion nasal spray,[employer] Inhale 1 spray every day by intranas al route. 01/03 completed updated 01-04-20 15 Not Available Not Available Not Available sertralin e 50 mg tablet TAKE one and one half tablets (75mg) BY MOUTH EVERY DAY 05/19 completed changed to 100 mg tablet 1 1/2 tablets daily . updated 05-19-19 16 Not Available Not Available Not Available naratript an 2.5 mg tablet TK 1 T PO QD 01/03 completed updated 01-04-20 15 Not Available Not Available Not Available Menest 0.3 mg tablet 1 daily 02/13 completed Not Available Not Available Not Available diazepam 5 mg tablet 02/16 completed updated 02-17-20 15 Not Available Not Available Not Available Ventolin HFA 90 mcg/actua tion aerosol inhaler Inhale 2 puffs 4 times a day by inhalati on route for 10 days. 04/07 completed Not Available Not Available Not Available clindamyc in phosphate 1 % topical solution prn acne 10/19 completed updated 10-20-19 15 Not Available Not Available Not Available buspirone 15 mg tablet TAKE 1 TABLET BY MOUTH 3 TIMES A DAY FOR ANXIETY (DO NOT EXCEED 60MG/DAY ) active Not Available Not Available No t Available azithromy scooby 500 mg tablet Take 1 tablet every day by oral route for 3 days. 03/07 completed updated 10-20-19 15 Not Available Not Available Not Available escitalop shahriar 10 mg tablet TK 1 T PO QD 11/21 completed UPDATED 11-22-19 16 Not Available Not Available Not Available escitalop shahriar 20 mg tablet TAKE 1 TABLET BY MOUTH EVERY DAY 08/16 completed Not Available Not Available Not Available Relpax 40 mg tablet TAKE 1 TABLET BY MOUTH NEEDED FOR HEADACHE AND MAY REPEAT IN 2 HOURS NEEDED 02/13 completed Not Available Not Available Not Available Premarin 0.45 mg tablet TAKE 1 TABLET BY MOUTH DAILY 10/26 completed Not Available Not Available Not Available Premarin 0.3 mg tablet TAKE 1 TABLET BY MOUTH EVERY DAY 11/20 completed Not Available Not Available Not Available metoprolo l tartrate 25 mg tablet TK 1 T PO BID 02/04 completed Not Available Not Available Not Available topiramat e 50 mg tablet TK 1 T PO TID 10/19 completed updated 10-20-19 15 Not Available Not Available Not Available nitrofura ntoin monohydra te/macroc rystals 100 mg capsule TK 1 C PO Q 12 H FOR 7 DAYS 08/16 completed Not Available Not Available Not Available duloxetin e 30 mg capsule,d elayed release TAKE 1 CAPSULE BY MOUTH EVERY EVENING 03/10 completed Not Available Not Available Not Available duloxetin e 60 mg capsule,d elayed release TK 1 C PO QPM 03/10 completed Not Available Not Available Not Available eszopiclo ne 3 mg tablet TAKE 1 TABLET BY MOUTH EVERY DAY AT BEDTIME 12/29 completed LEFT MESSAGE ON PHARMACY VM, CALLED IN #40/RF-0 .MLB 11-23-19 17 Not Available Not Available Not Available eszopiclo ne 2 mg tablet TAKE 1 TABLET BY MOUTH EVERY DAY AT BEDTIME 06/05 completed LEFT MESSAGE ON THE PHARMACY VM, CALLED IN #30/RF-0 .MLB 05-26-19 17 Not Available Not Available Not Available Vitamin C 04/07 completed Not Available Not Available Not Available biotin active Not Available Not Availa ble Not Available multivita min 11/20 completed Not Available Not Available Not Available Aczone 5 % topical gel prn acne 11/11 completed Not Available Not Available Not Available Suprep Bowel Prep Kit 17.5 gram-3.13 gram-1.6 gram oral solution 02/24 completed Not Available Not Available Not Available Vicodin 5 mg-300 mg tablet TK 1-2 TS PO Q 4-6 PRN P. TAKE WITH FOOD 02/16 completed updated 02-17-20 15 Not Available Not Available Not Available Virtussin AC 10 mg-100 mg/5 mL oral liquid TAKE 10ML BY MOUTH EVERY 4 TO 6 HOURS PRN 01/03 completed updated 01-04-20 15 Not Available Not Available Not Available Estroven Nighttime (with calcium-m elatonin) 112 mg-2 mg tablet Take 1 tablet every day by oral route at bedtime. 05/15 completed Not Available Not Available Not Available Vitamin B12 active Not Available Not Available Not Available Fluvirin 4569-6562 45 mcg (15 mcg x 3)/0.5 mL intramusc ular suspensio n ADM 0.5ML IM UTD 12/29 completed Not Available Not Available Not Available Flucelvax Quad [id number] (PF) 60 mcg (15 mcg x 4)/0.5 mL IM syringe ADM 0.5ML IM UTD 05/15 completed Not Available Not Available Not Available ID NOW COVID-19 Test Kit DIRECTED [id number] 11/20 completed Not Available Not Available Not Available Vitals Date Recorded Respiratory rate Pain severity - 0-10 verbal numeric rating [Score] - Reported Body weight Body mass index (BMI) Body height Body temperature Heart rate Oxygen saturation Oxygen saturation in Arterial blood by Pulse oximetry Systolic And Diastolic Provider Name and Address Organization Details Last Updated DateTime 1 16 /min 0 221200. 17 g 38.7 kg/m2 167.64 cm 97.4 [degF] 92 /min 99 % 99 % 128/84 mm[Hg] Yenchetan Villa [facility] 1 15:15:45 Date Recorded Body height Body mass index (BMI) Body weight Systolic And Diastolic Provider Name and Address Organization Details Last Updated DateTime 11/20/2021 167.64 cm 36.8 kg/m2 805108.06 g 135/83 mm[Hg] Mary Kate Roberson [facility] 11/20/2021 11:08:09 Date Recorded Body height Respiratory rate Pain severity - 0-10 verbal numeric rating [Score] - Reported Body mass index (BMI) Body weight Heart rate Oxygen saturation Oxygen saturation in Arterial blood by Pulse oximetry Body temperature Systolic And Diastolic Provider Name and Address Organization Details Last Updated DateTime 9 167.64 cm 16 /min 8 38.4 kg/m2 439640. 98 g 86 /min 98 % 98 % 98.5 [degF] 132/88 mm[Hg] Yen Collinsden [facility] 9 11:28:41 Date Recorded Body height Body mass index (BMI) Body weight Systolic And Diastolic Provider Name and Address Organization Details Last Updated DateTime 03/10/2019 167.64 cm 38.4 kg/m2 183252.98 g 128/70 mm[Hg] Radha Tanner [facility] 03/10/2019 16:40:09 Date Recorded Body height Respiratory rate Pain severity - 0-10 verbal numeric rating [Score] - Reported Body mass index (BMI) Body weight Heart rate Oxygen saturation Oxygen saturation in Arterial blood by Pulse oximetry Body temperature Systolic And Diastolic Provider Name and Address Organization Details Last Updated DateTime 9 167.64 cm 16 /min 6 39.4 kg/m2 774033. 54 g 81 /min 97 % 97 % 98.1 [degF] 114/70 mm[Hg] Yen MORALES Jordana [facility] 9 11:19:37 Social History Question Answer Notes LastModified by Organizat ion Details LastModified Time Tobacco Smoking Status Never Smoker ANDREW Aguirre [facility] 11/23/2011 11:25:50 Do You Have An Advance Directive? No Information not available 01/22/2018 Are You Blind Or Do You Have Difficulty Seeing? No Information not available 01/22/2018 What Is Your Level Of Caffeine Consumption? Occasional Information not available 11/23/2011 How Much Tobacco Do You Chew? None Information not available 11/23/2011 In The 14 Days Before Symptom Onset, Have You Had Close Contact With A Laboratory-confir med COVID-19 While That Case Was Ill? No Information not available 07/04/2020 In The 14 Days Before Symptom Onset, Have You Had Close Contact With A Person Who Is Under Investigation For COVID-19 While That Person Was Ill? No Information not available 07/04/2020 Have You Been To An Area Known To Be High Risk For COVID-19? No Information not available 07/04/2020 What Type Of Diet Are You Following? REGULAR Information not available 11/23/2011 Which Illicit Or Recreational Drugs Have You Used? None Information not available 11/23/2011 Has The Patient Fallen Two Or More Times In The Past Year? No Information not available 12/29/2016 Have You Traveled Outside Of The [place] In The Last 21 Days (3 Weeks)? No UPDATED 01/22/2018 MLB [email or web address] Information not available 03/04/2014 Do You Have Any Anglican Beliefs That May Impact Your Health Care Decisions? No Information not available 02/13/2019 Did You Hurt Yourself When You Fell In The Last Year? No Information not available 12/29/2016 Education: 4 Yr College Information not available 01/22/2018 Tobacco Status Never User [email or web address] not available 04/07/2018 Do You Have Someone Who Loves You And Care For You? Yes Information not available 02/13/2019 Do You Have A Source Of Alee In Your Life? Yes Information not available 02/13/2019 Do You Have A Sense Of Peace Today? Yes Information not available 02/13/2019 Lives With Spouse Information no t available 01/22/2018 Marital Status Informatio n not available 11/23/2011 What Was The Date Of Your Most Recent Tobacco Screening? 11/20/2021 [email or web address] Information not available 11/20/2021 Are You Sexually Active? Yes Information not available 11/23/2011 How Much Tobacco Do You Smoke? No Information not available 11/23/2011 How Many Years Have You Smoked Tobacco? 0 Information not available 01/22/2018 Sex: Unknown Functional Status Question Answer Note LastModified by Organizat ion Details LastModified Time What is your level of alcohol consumption? Occasional Information not available 11/23/2011 Do you or have you ever used smokeless tobacco? 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 Never used electronic cigarettes Information not available 02/13/2019 What is your exercise level? Occasional Information not available 11/23/2011 Mental Status Question Answer Note LastModified by Organization D etails LastModified Time Do you have difficulty concentrating, remembering or making decisions? No Information no t available 01/22/2018 Family History Relationship Description Onset Age of this Age Resolved Age Notes LastModified by Organization Details LastModified Time Father Malignant neoplastic disease stomac h cancer (previ ously record ed as Cancer ) Not available 11/22/2015 12:45:03 Mother Rheumatoid arthritis Not available 2015 12:45:03 Notes:pt denies fam hxo colo n ca/ cer, uter, breast ca 2020 Medical History Condition Response Headaches/Migraines Y Arthritis Y Gynecological History Statement/Question Response History of STDs? N Last Mammogram results WNL Date of Last Colonoscopy 02/24/2015 Date of Last Mammogram 10/13/2021 Most Recent Bone Density Date of LMP 04/15/2007 Abnormal Pap Smear None Date of Last Pap Smear 03/10/2019 LMP Definite Colonoscopy 02/24/2015 Obstetrics History GPAL:G 2 P 2 0 0 3 Type Value Multiple Births 1 Full Term 2 Living 3 Total 2 Immunizations Vaccine Type Date Status Note Provider Nam e and Address Organization Details Recorded Time Influenza, split virus, trivalent, PF 5 completed Not Available [facility] 05/02/2019 02:12:03 Influenza, split virus, trivalent, preservative 2 completed Not Available [facility] 05/16/2019 02:11:00 Influenza, adjuvanted, trivalent, PF 6 completed [facility] 12/29/2016 12:31:30 Influenza, split virus, quadrivalent, preservative 7 completed Not Available [facility] 05/16/2019 02:13:55 influenza, unspecified formulation 3 completed Yen field [facility] 04/21/2013 09:25:56 influenza, unspecified formulation 4 completed Yen field [facility] 10/19/2014 16:27:46 Influenza, split virus, quadrivalent, PF 8 completed Not Available [facility] 05/02/2019 02:34:24 Influenza, MDCK, quadrivalent, PF 9 completed Not Available [facility] 05/02/2019 02:53:02 Past Encounters Encounter ID Performer Location Encounter Start Date Encounter Closed Date Diagnosis/Indication Diagnosis SNOMED-CT Code Diagnosis ICD10 Code Diagnosis Note [id number] Nichole Espinosa MD [facility] [address] [place] [address] 08/22/2006 09:57:29 08/22/2006 10:38:09 [id number] Nichole Espinosa MD [facility] [address] [place] [address] 06/04/2006 11:45:40 06/04/2006 13:17:31 [id number] Nichole Espinosa MD [place] [facility] [address] [place] [address] 06/14/2006 10:55:11 06/14/2006 11:45:14 [id number] Nichole Espinosa MD [place] [address] [place] [address] 10/24/2007 10:27:33 10/24/2007 12:01:59 [id number] Nichole Espinsoa MD [place] [address] [place] [address] 06/08/2008 09:50:41 06/08/2008 10:33:51 [id number] Nichole Espinosa MD [place] [address] [place] [address] 11/12/2008 15:20:46 11/12/2008 16:19:26 [id number] Nichole Espinosa MD [place] [address] [place] [address] 07/11/2009 10:43:29 07/11/2009 11:40:59 [id number] [place] [address] [place] [address] 07/13/2009 09:08:16 07/13/2009 09:15:56 [id number] Nichole Espinosa MD [place] [address] [place] [address] 01/06/2010 11:43:00 01/06/2010 12:18:10 [id number] Nichole Espinosa MD [place] [address] [place] [address] 01/31/2010 11:09:14 01/31/2010 12:26:39 [id number] Nichole Espinosa MD [place] [address] [place] [address] 02/13/2010 14:58:28 02/13/2010 16:17:20 [id number] Nichole Espinosa MD [place] [address] [place] [address] 05/12/2010 11:36:10 05/12/2010 12:12:58 [id number] Nichole Espinosa MD [place] [address] [place] [address] 09/19/2010 11:47:58 09/19/2010 12:28:02 [id number] Nichole Espinosa MD [place] [address] [place] [address] 07/12/2011 12:00:17 07/12/2011 12:42:59 [id number] Nichole Espinosa MD [place] [address] [place] [address] 11/23/2011 10:55:03 11/23/2011 14:05:42 [id number] Nichole Espinosa MD [place] [address] [place] [address] 03/12/2012 11:19:53 03/12/2012 13:33:39 [id number] Nichole Espinosa MD [place] [address] [place] [address] 07/22/2012 14:52:51 07/22/2012 15:49:40 [id number] Nichole Espinosa MD [place] [address] [place] [address] 04/21/2013 09:10:51 04/21/2013 10:29:10 Migraine [id number] Backache [id number] [facility] [id number] [facility] [id number] Nichole Espinosa MD [place] [address] [place] [address] 09/10/2013 16:34:00 09/10/2013 17:22:30 Migraine [id number] Menopausal flushing [id number] West Hoyos MD [facility] [place] [address] [place] [address] 03/04/2014 15:08:21 03/05/2014 13:05:06 Sinusitis 61612907 [id number] Nichole Espinosa MD [place] [address] [place] [address] 10/19/2014 15:43:12 10/19/2014 17:09:43 Visual disturbance 78055211 [id number] Ivelisse Lamb MD [place] [address] [place] [address] 11/11/2014 12:59:39 11/11/2014 13:25:18 Cough [id number] Nichole Espinosa MD [place] [address] [place] [address] 01/03/2015 11:45:55 01/03/2015 13:04:48 Influenza vaccine needed 5914280925 106 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 [facility] 10550143 [id number] Nichole Espinosa MD [place] [address] [place] [address] 02/16/2015 15:06:21 02/16/2015 15:57:51 Anxiety 89660486 F41.9 [id number] Nichole Espinosa MD [place] [address] [place] [address] 03/15/2015 11:07:58 03/15/2015 11:53:07 Anxiety 69772281 F41.9 [id number] Nichole Espinosa MD [place] [address] [place] [address] 04/11/2015 11:00:14 04/11/2015 11:36:31 Anxiety 93524861 F41.9 [id number] Nichole Espinosa MD [place] [address] [place] [address] 05/19/2015 11:12:11 05/19/2015 11:57:01 Anxiety 61517354 F41.9 [id number] ADELIA Clayton [place] [address] [place] [address] 11/22/2015 12:21:57 11/22/2015 13:28:28 Anxiety 60284953 F41.9 [id number] Abbey Magana MD [place] [address] [place] [address] 08/16/2016 17:55:58 08/16/2016 18:44:38 Blood in urine 37992605 R31.9 Advised to stop vitamin CHandout given for calcium oxalate diet, suspect since mother had to stop calcium for her stones UA with blood in the urine - otherwise no signs of infectionR eferred to Uropartner s for follow up History of calculus of kidney 891658020 Z87.442 Upper resp iratory infection 83819286 J06.9 Supportive careAdvise d to call/retur n if worsening symptoms, fever > 100F, shortness of breath [id number] Nichole Espinosa MD [place] [address] [place] [address] 12/29/2016 12:24:20 12/29/2016 13:01:21 Migraine 65459393 G43.909 Benign ess ential hypertension 8376174 I10 [id number] Nichole Espinosa MD [place] [address] [place] [address] 01/14/2017 11:03:17 01/14/2017 12:26:41 Malaise and fatigue 873932327 R53.81 Headache 73962975 R51 Benign ess ential hypertension 9994985 I10 Menopausal syndrome 1237 39291 N95.9 [id number] Nichole Espinosa MD [place] [address] [place] [address] 05/15/2017 11:41:22 05/15/2017 12:48:11 Benign essential hypertension 1759946 I10 Fibromyalgia 189774424 M 79.7 Anxiety 74328126 F41.9 [id number] Nichole Espinosa MD [place] [address] [place] [address] 01/22/2018 11:46:50 01/22/2018 13:00:11 Anxiety 06585788 F41.9 Administra tion of influenza vaccine 97628212 Z23 Fatigue 05351163 R53.83 Overweight 479014502 E66 .3 Postmenopausal state 764 36677 Z78.0 [id number] Rachid Parisi DO [facility] - [employer] [place] [facility] [address] [place] [address], [address] [place] [address] 04/07/2018 10:55:35 04/07/2018 11:38:25 Gynecologic examination 02929017 Z01.419 Z12.72 Postmenopausal state 764 92000 Z78.0 [id number] Nichole Espinosa MD [place] [address] [place] [address] 02/13/2019 11:12:43 02/13/2019 11:49:24 Fibromyalgia 598995784 M79.7 Overweight 503769259 E66 .3 [id number] [facility] [address] [place] [facility] [address] [place] [address], [address] [place] [address] 03/10/2019 16:29:38 03/10/2019 17:10:53 Gynecologic examination 52764277 Z01.419 Z12.72 Menopausal syndrome 1237 67463 N95.9 Overweight 015061191 E66 .3 [id number] Nichole Espinosa MD [place] [address] [place] [address] 04/06/2019 10:55:08 04/06/2019 11:56:24 Pain of joint 48914832 M25.50 Anxiety 84076394 F41.9 Fibromyalgia 462053258 M 79.7 Influenza vaccine needed 1962545776 106 Z23 Hyperglycemia 46324146 R 73.9 Fatigue 89286246 R53.83 Cholesterol screening 27 8034492 Z13.220 [id number] Nichole Espinosa MD [place] [address] [place] [address] 07/04/2020 15:07:06 07/04/2020 15:48:18 Allergic urticaria 00634466 L50.0 Migraine 54540972 G43.90 9 stable on meds Fibromyalgia 715657571 M 79.7 [id number] Rachid Parisi DO [facility] [place] - [address] [address], [facility] [address], [address] [place] [address] 11/20/2021 10:33:46 11/20/2021 11:37:05 Gynecologic examination 02491986 Z01.419 Z12.4 Z12.72 Cyst of left breast 1073 785214 5627647 N60.02 Cyst of right breast 834 3461761 1772517 N60.01 Health Concerns Section Related Observation LastModified by Organization Detai ls LastModified Time None Recorded Concern Status LastModified by Organization Details LastModified Time None Recorded Advance Directives Directive N: Payers Insurance Date Sequence Insurance Name Policy Number Policy [place] Covered Member ID [place] Member ID Guarantor Name 07/04/2020 SLIDING FEE SCHEDULE - DISCOUNT Janell Depinto 12/21/2020 1 *SELF PAY* Li sa Depinto 04/14/2020 1 *SELF PAY* Li sa Depinto 11/20/2021 1 [place] [facility] (MEDICAID REPLACEMENT - HMO) [id number] Janell Depinto [id number] Janell Depinto 07/04/2020 SLIDING FEE SCHEDULE - DISCOUNT Janell Depinto 11/20/2021 1 [place] [id number] Janell T Depinto [id number] Janell Depinto 11/20/2021 1 UMR [id number] Janell T Depinto [id number] Janell Depinto 11/20/2021 [employer] Janell Depinto Janell Depinto 11/20/2021 1 [facility] - OPTIONS (PPO) [id number] Janell Depinto [id number] Janell Depinto 11/20/2021 1 [place] [id number] Janell T Depinto [id number] Janell Depinto 11/20/2021 [employer] Janell Depinto Janell Depinto 11/28/2013 1 [facility] - OPEN ACCESS - [employer] (HMO) [id number] [id number] Janell Depinto 11/20/2021 1 [employer] [place] - DOS ON [place] AFTER 2020 (MEDICAID REPLACEMENT - HMO) [id number] Janell Depinto [id number] Jaenll Depinto 07/05/2015 1 *SELF PAY* Celina da silva Depinto 11/20/2021 1 [place] [id number] Janell T Depinto [id number] Janell Depinto 11/20/2021 1 [facility] - DOS PRIOR TO 2020 (MEDICAID REPLACEMENT - HMO) Janell Depinto [id number] Janell Depinto 11/20/2021 1 [facility] (POS) [id number] Janell Depinto [id number] Janell Depinto 11/20/2021 1 [facility] [id number] Janell Depinto [id number] Janell Depinto Notes Date Note Type Note Provider Name and Address Organization Details Recorded Time 9 text/html here for follow up has fibromyalgiaseeing rheum and was on cymbaltanot helping anymorehas more paincannot get out of bed because of painhas pain in lower body and backmom has rheum arthritispatient doesnt want to take pain pills Nichole Espinosa MD [address] [facility],[address], [place], [address], [facility] 02/13/2019 14:08:25 9 text/html 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 Post MenopausalReported bypatient.History:no gynecologic complaints Urinary symptoms:No hematuria; No incontinence Vulva:No genital lesion Vagina:Normal vaginal discharge;vaginal atrophy Vaginal Bleeding:no history of post menopausal bleeding Breast:No breast pain; No breast lump; No nipple discharge Sexual complaints:No sexual complaints Menopausal Symptoms:Hot flashes;Inadequacy of lubrication of vaginal mucosa Psychological symptoms:No depression; No anxiety; No PMDD Preventive measures:Encourage self breast examination; Encourage regular exercise; Encourage no tobacco use; Encourage regular mammograms starting age 40; Followed with yearly pap smears; Mammogram performed within the past year; Needs to schedule mammogram; Up to date on colonoscopy screening Rachid Parisi DO [address] [facility],[address], [place], [address], [facility] 03/10/2019 18:36:37 9 text/html her for follow up fibroshe is doing ok but still has flare ups and depressionwants to increase dose has chronic fatigue due for flu shot and cholesterol screening Nichole Espinosa MD [address] [facility],[address], [place], [address], [facility] 04/06/2019 12:26:46 1 text/html here for follow up Nichole Espionsa MD [address] [facility],[address], [place], [address], [facility] 07/04/2020 16:26:49 2 text/html Annual GYNReported bypatient.History:no gynecologic complaints Menstrual cycle:Normal menses Vulva:No genital lesion Vagina:Normal vaginal discharge Breast:No breast pain; No breast lump; No nipple discharge Sexual complaints:No sexual complaints; No pain during intercourse; Normal libido Psychological symptoms:No depression; No anxiety Preventive measures:Encourage self breast examination; Encourage regular exercise; Encourage no tobacco use; Followed with yearly pap smears Mammography and breast sonograms reviewed bilateral cysts 4mm and they recommend repeat 1 year Rachid Parisi DO [address] [facility],[address], [place], [address], [facility] 11/22/2021 06:31:51 OBGyn Episode No OBEpisode recorded.
[2024-10-27 15:48] LABS: Hemoglobin A1C 5.5 % (<5.7)
[2024-10-27 15:51] LABS: Alanine Aminotransferase 14 U/L (6-35); Albumin Level 3.8 g/dL (3.5-5.1); Alkaline Phosphatase 75 U/L (38-126); Anion Gap 2 mmol/L (4-12); Aspartate Amino Transferase 20 U/L (14-36); Bilirubin,Total 0.2 mg/dL (0.2-1.3); Blood Urea Nitrogen 21 mg/dL (7-17); Calcium 8.8 mg/dL (8.4-10.2); Carbon Dioxide 31 mmol/L (22-30); Chloride 107 mmol/L (98-107); Cholesterol 217 mg/dL (0-200); Estimated Glomerular Filt Rate > 60; Glucose 97 mg/dL (65-110); HDL Direct 46 mg/dL; Osmolality Calculated 293 mOsm/kg (285-295); Potassium 4.0 mmol/L (3.4-5.0); Sodium 140 mmol/L (137-145); Total Protein 6.2 g/dL (6.3-8.2); Triglycerides 231 mg/dL (<150)
== END 2024-10-27 15:12 | disposition home or self-care (01) ==
PROVIDERS: PCP Nurse Practitioner Family; Visit Provider Nurse Practitioner Family
DX: Z13.6 Encounter for screening for cardiovascular disorders (principal); R73.03 Prediabetes; R79.89 Other specified abnormal findings of blood chemistry
CPT/HCPCS: 36415; 80053; 80061; 83036

== ENCOUNTER 2025-01-12 08:26 | Outpatient (CLI) | payer BC, OTHER, SELFPAY ==
--- OUTSIDE RECORDS SUMMARY | 2011-12-18 19:00 | XMS_ITS | Continuity of Care Document ---
Author Organization [facility] Address [address] [place] [address] Care Team Providers Care Equipment Mechanic Name Role Phone Sea Arellano MD Unavailable Unavailable Procedures Procedure Date Ecg-routine 12 Lead; Intrpt & 2 Ecg-routine 12 Lead; Intrpt & 9 Advance Directives Directive Yes / No Effective Date File Name No Information Encounters Encounter Description Practice Location Reason(s) For Visit Diagnoses Date Provider Providers Copied on Encounter [facility], [address] [place] [address], [facility], [facility] No Information 2 Adan Osei. [address] [place] [address], [facility] [id number], [place], [facility], . tel:[phone] Referring Provider: Jean-Claude Parisi DO, [address] [place] [address], [address]. tel:[phone] [facility], [address] [place] [address], [facility], [facility] No Information 9 Komal Tatum. [address] [place] [address], [address], [facility] [address], [place], [id number], [place]. tel:[phone] Referring Provider: Jena-Claude Parisi DO, [address] [place] [address] [facility], [place], [address]. tel:[phone] Family History Family Member Type Diagnosis Age At Onset No Information Payers Payer name Insurance type Covered republican ID Authoriza tion(s) BLUE CROSS AND BLUE SHIELD O F [facility] [id number] Social History Type Description Quantity Date Captured [...]
--- OUTSIDE RECORDS SUMMARY | 2025-01-12 08:40 | XMS_ITS | Clinical Summary ---
Author Organization [facility] Medical Office Building [address] Address [address] [place] [address] Care Team Providers Care Designer Architect Name Role Phone Maikol Najera DO Primary [...] taking.Reported on 10/19/2024 ondansetron (ZOFRAN) 4 mg tabletIndicatio ns:Prevention of Post-Operative Nausea and Vomiting Take 1 tablet (4 mg total) by mouth every 6 (six) hours as needed for nausea or vomiting 30 tablet 1 4 Active amoxicillin 500 mg tablet/capsule TAKE 4 CAPSULES BY MOUTH FOR 1 DOSE ONE HOUR PRIOR TO DENTAL PROCEDURE 4 tablet/capsu le 3 5 Active HYDROcodone-[place]ia taminophen (NORCO) 10-325 mg per tablet Take 1 tablet by mouth every 8 (eight) hours as needed for pain 20 tablet 5 Active Active Problems Problem Noted Date Diagnosed Date [...] (04/27/2022): Added automatically from request for surgery [id number] Overweight 03/14/2022 Sjogren's syndrome 03/14/2022 Fibromyalgia 07/04/2020 Migraine 07/04/2020 Acute upper respiratory infection 08/22/2006 Anemia 06/14/2006 Anxiety 06/04/2006 Joint pain 06/03/2006 Encounters Date Type Department Care Team Description 10/27/2024 Orders Only [facility] Orthopedics and Sports Medicine [address] [place] [phone] Santi Hagen PA 10/20/2024 Orders Only [facility] Orthopedic and Sports Medicine [facility] [place] [phone] Santi Hagen PA Iliotibial band syndrome of right side (Primary Dx) 10/19/2024 3:30 PM CDT Office Visit [facility] Orthopedic and Sports Medicine [address] [place] [address] Santi Hagen PA Primary osteoarthritis of [...] CDT Respiratory Rate 18 06/15/2024 9:12 AM CLINICAL DATA RESEARCH Oxygen Saturation 95% 12/25/2023 11:02 AM CDT [...] 2) 08/17/2017 Breast Cancer Screening-Mammogram 05/29/2020 05/29/2019 Depression Screening 12/06/2024 12/07/2023 Covid-19 Vaccine (2 - season) 2024 07/20/2020 Influenza Vaccine (#1) 2024 9, 04/06/2019, 01/22/2018, Additional history exists Pneumococcal vaccine <65 Aged Out No longer eligible based on patient's age to complete this topic Medical Devices Implanted Type Area Truck Hop Device Identifier Shelf Expiration Date Model / Serial / Lot Plate N/A: Neck [employer] Attune Fb Tib Base Sz 4 Por [id number] - [id number] Implanted:Qty: 1 on 12/24/2023 by Loc Angulo MD at [facility] Right: Knee [employer] 11/12/2033 [id number] / / [id number] [employer] Attune Cruciate Retain Cementless Knee Right 5 Narrow Component [id number] - [id number] Implanted:Qty: 1 on 12/24/2023 by Loc Angulo MD at [facility] Right: Knee [employer] 01/13/2032 [id number] / / [id number] [employer] Insert Tibial Knee Fixed Rm Posterior Stabilized Attune 6mm Size 5 Polyethylene [id number] - [id number] Implanted:Qty: 1 on 12/24/2023 by Loc Angulo MD at [facility] Right: Knee [employer] 05/15/2031 [id number] / / [id number] Procedures Procedure Name Priority Date/Time Associated Diagnosis Comments [place] ARTHROCENTESIS ASPIR&/INJ MAJOR JT/BURSA W/O US Routine 10/19/2024 3:30 PM CDT Primary osteoarthritis of left knee from Last 3 Months Results * [place] ARTHROCENTESIS ASPIR&/INJ MAJOR JT/BURSA W/O US (10/19/2024 [...] the procedure well with no immediate complications Result [facility] Santi [facility]/BEDSIDE ORDERABLE S Final Result from Last 3 Months Insurance [facility] [employer] Advance Directives For more information, please contact: [phone] * Full Code (Latest Code Status on File) Date Activated Date Inactivated Comments 12/24/2023 2:52 PM 12/25/2023 7:50 PM Care Teams Designer Architect Relationship Specialty Start Date End Date Maiklo Najera DO [address] [place] [address] PCP - General Family Medicine 03/22/22 Varsha Gliliam PA [address] [place] [address] [place] [address] Physician Cassandra Consultant Orthopedic Surgery 05/10/22 Sanit Hagen PA [address] [facility] [address] [place] [address] [place], [place] [address], [place] [address] Physician Cassandra Consultant Orthopedic Surgery 12/25/23
[2025-01-12 09:18] LABS: Alanine Aminotransferase 15 U/L (6-35); Albumin Level 4.0 g/dL (3.5-5.1); Alkaline Phosphatase 66 U/L (38-126); Anion Gap 9 mmol/L (4-12); Aspartate Amino Transferase 22 U/L (14-36); Bilirubin,Total 0.3 mg/dL (0.2-1.3); Blood Urea Nitrogen 18 mg/dL (7-17); Calcium 9.6 mg/dL (8.4-10.2); Carbon Dioxide 28 mmol/L (22-30); Chloride 105 mmol/L (98-107); Cholesterol 199 mg/dL (0-200); Estimated Glomerular Filt Rate > 60; Glucose 160 mg/dL (65-110); HDL Direct 43 mg/dL; Osmolality Calculated 298 mOsm/kg (285-295); Potassium 4.4 mmol/L (3.4-5.0); Sodium 142 mmol/L (137-145); Total Protein 6.6 g/dL (6.3-8.2); Triglycerides 197 mg/dL (<150)
== END 2025-01-12 08:27 | disposition home or self-care (01) ==
LOC: CHSLAB 08:28
PROVIDERS: PCP Nurse Practitioner Family; Visit Provider Nurse Practitioner Family
DX: R53.83 Other fatigue (principal); R73.03 Prediabetes; E78.2 Mixed hyperlipidemia
CPT/HCPCS: 36415; 80053; 80061; 82306

== ENCOUNTER 2025-02-09 13:21 | Outpatient (CLI) | payer BC, OTHER, SELFPAY ==
--- NOTE | ~2025-02-09 | MM_ITS ---
EXAMINATION: MM scrn ponce implant BI w meliza HISTORY: Screening TECHNIQUE: Craniocaudal and mediolateral oblique 3-D tomosynthesis images with implant displacement and synthetic 2-D images were generated. Craniocaudal and mediolateral oblique views of the breasts without implant displacement were obtained using full field digital mammography. CAD analysis was submitted and interpreted. COMPARISON: Comparison to multiple prior studies sequentially, with oldest reviewed study dated 10/30/2021. BREAST PARENCHYMAL COMPOSITION: Not dense: There are scattered areas of fibroglandular density. FINDINGS: There is a developing mass laterally in the right breast on CC view, posterior third. This likely represents a lymph node, although has increased in size and density compared with prior studies. The left breast is stable without evidence for malignancy. IMPRESSION: 1. Developing right breast mass laterally on nonimplant displaced CC view. 2. Additional mammographic views and possible breast ultrasound are recommended. BI-RADS Category 0: Incomplete: Needs additional imaging evaluation. Reviewed, dictated and finalized at location B. IMPRESSION: 1. Developing right breast mass laterally on nonimplant displaced CC view. 2. Additional mammographic views and possible breast ultrasound are recommended . BI-RADS Category 0: Incomplete: Needs additional imaging evaluation.
--- OUTSIDE RECORDS SUMMARY | 2025-02-09 15:19 | XMS_ITS | Clinical Summary ---
Author Organization [facility] Medical Office Building B Address [address] [place] [address] Care Team Providers Care Rolling Machine Operator Automatic Name Role Phone Maikol Najera DO Primary Care Provider Varsha Gilliam Unavailable Santi Hagen Unavailable [phone] Allergies No known active allergies Medications metoprolol [...] for constipation 60 tablet 1 4 Active ondansetron (ZOFRAN) 4 mg tabletIndicatio ns:Prevention of [...] needed for pain 20 tablet 5 Active suzetrigine (Journavx) 50 mg tablet Take 1 tablet (50 mg total) by mouth every 12 (twelve) hours 60 tablet 5 02/18/20 25 Active Hospital, Clinic, or Other Facility Administered Medication Ordered Dose Route Frequency Start Date End Date Status methylPREDNISolone acetate (DEPO-medrol) injection 80 mgIndications:Primar y osteoarthritis of left knee 80 mg intra-artic One-Time Injection 01/18/2025 5 Ended lidocaine (PF) (XYLOCAINE) 20 mg/mL (2 %) preservative free injection 3 mLIndications:Primar y osteoarthritis of left knee 3 mL One-Time Injection 01/18/2025 5 Ended Active Problems Problem Noted Date [...] (04/27/2022): Added automatically from request for surgery [id number] Overweight 03/14/2022 Sjogren's syndrome 03/14/2022 Fibromyalgia 07/04/2020 Migraine 07/04/2020 Acute upper respiratory infection 08/22/2006 Anemia 06/14/2006 Anxiety 06/04/2006 Joint pain 06/03/2006 Encounters Date Type Department Care Team Description 01/18/2025 3:30 PM CDT Office Visit [facility] Orthopedic and Sports Medicine [address] [place] [phone] Santi Hagen PA Primary osteoarthritis of left knee (Primary Dx) from Last 3 Months Surgical [...] Sign Reading Time Taken Comments Blood Pressure 148/84 01/18/2025 3:06 PM CDT Pulse 80 01/18/2025 3:06 PM CDT Temperature 36.1 C (96.9 F) 12/25/2023 11:02 AM CDT Respiratory Rate 18 06/15/2024 9:12 AM 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 Oxygen Saturation 95% 12/25/2023 11:02 AM CDT Inhaled Oxygen Concentration - - Weight 108.4 kg (239 lb) 01/18/2025 3:06 PM CDT Height 165.1 cm (5' 5) 01/18/2025 3:06 PM CDT Body Mass Index 39.77 01/18/2025 3:06 PM CDT Plan of Treatment Health Maintenance [...] this topic Medical Devices Implanted Type Area Construction Ironworker Helper Device Identifier Shelf Expiration Date Model / Serial / Lot Plate N/A: Neck [employer] Attune Fb Tib Base Sz 4 Por [id number] - [id number] Implanted:Qty: 1 on 12/24/2023 by Loc Angulo MD at [facility] Right: Knee [employer] Inc 11/12/2033 [id number] / / [id number] [employer] Attune Cruciate Retain Cementless Knee Right 5 Narrow Component [id number] - [id number] Implanted:Qty: 1 on 12/24/2023 by Loc Angulo MD at [facility] Right: Knee [employer] Inc 01/13/2032 [id number] / / [id number] [employer] Insert Tibial Knee Fixed Rm Posterior Stabilized Attune 6mm Size 5 Polyethylene [id number] - [id number] Implanted:Qty: 1 on 12/24/2023 by Loc Angulo MD at [facility] Right: Knee [employer] 05/15/2031 [id number] / / [id number] Procedures Procedure Name Priority Date/Time Associated Diagnosis Comments [place] ARTHROCENTESIS ASPIR&/INJ MAJOR JT/BURSA W/O US Routine 01/18/2025 3:30 PM CDT Primary osteoarthritis of left knee from Last 3 Months Results * [place] ARTHROCENTESIS ASPIR&/INJ MAJOR JT/BURSA W/O US (01/18/2025 3:30 PM CDT) Narrative Santi Hagen PA - 01/18/2025 3:30 PM CDT Santi Hagen PA 01/18/2025 3:45 PM Large Joint (Hip, Knee, Shoulder) Injection: [...] clean technique Needle Size: 22 G Approach: Anterolateral Ultrasound guided: No Fluroscopic guidance: No Medications: 80 mg methylPREDNISolone acetate 80 mg/mL; 3 mL lidocaine (PF) 20 mg/mL (2 %) Patient tolerance: Patient tolerated the procedure well with no immediate complications Santi [facility]/BEDSIDE ORDERABLE S Final Result from Last 3 Months Insurance BLUE ACC CHOICE OOS [facility] CHOICE OOS [employer]IG[employer] Member Subscriber Plan / Payer (Ef fective 2024-Present) Name:Janell Schwab Relation to Subscriber:Self Name:Janell Schwab Payer ID:[id number] (NAIC) Type:[employer] HMO/PPO Address: [facility] [id number] [place] [address] Advance Directives For more information, please contact: [phone] * Full Code (Latest Code Status on File) Date Activated Date Inactivated Comments 12/24/2023 2:52 PM 12/25/2023 7:50 PM Care Teams Rolling Machine Operator Automatic Relationship Specialty Start Date End Date Maikol Najera DO [address] [place] [address] PCP - General Family Medicine 03/22/22 Varsha Gilliam PA [address] [place] [address] Physician Cad Designer Drafter Orthopedic Surgery 05/10/22 Santi Hagen PA [address] [place] [address] [address] [place] [address] Physician Cad Designer Drafter Orthopedic Surgery 12/25/23
== END 2025-02-09 13:22 | disposition home or self-care (01) ==
LOC: CHSIMG 13:23
PROVIDERS: PCP Nurse Practitioner Family; Visit Provider Nurse Practitioner Family
DX: Z12.31 Encounter for screening mammogram for malignant neoplasm of breast (principal); R92.8 Other abnormal and inconclusive findings on diagnostic imaging of breast
CPT/HCPCS: 77063; 77067

== ENCOUNTER 2025-03-16 08:17 | Outpatient (CLI) | payer BC, OTHER, SELFPAY ==
--- OUTSIDE RECORDS SUMMARY | 2011-12-18 18:00 | XMS_ITS | Continuity of Care Document ---
Author Organization [facility] Address [address] [place] [address] Care Team Providers Care Access Manager Name Role Phone Sea Arellano MD Unavailable Unavailable Procedures Procedure Date Ecg-routine 12 Lead; Intrpt & 2 Ecg-routine 12 Lead; Intrpt & 9 Advance Directives Directive Yes / No Effective Date File Name No Information Encounters Encounter Description Practice Location Reason(s) For Visit Diagnoses Date Provider Providers Copied on Encounter [facility], [address] [place] [address], [facility], [facility] No Information 2 Adan Osei. [address] [place] [address], [facility] [id number], [place], [facility], . tel:[phone] Referring Provider: Jean-Claude Parisi DO, [address] [place] [address], [address]. tel:[phone] [facility], [address] [place] [address], [facility], [facility] No Information 9 Komal Tatum. [address] [place] [address], [address], [facility] [address], [place], [id number], [place]. tel:[phone] Referring Provider: Jean-Claude Parisi DO, [address] [place] [address] [facility], [place], [address]. tel:[phone] Family History Family Member Type Diagnosis Age At Onset No Information Payers Payer name Insurance type Covered constitution party ID Authoriza tion(s) BLUE CROSS AND BLUE SHIELD O F [facility] [id number] Social History Type Description Quantity Date Captured Comments Sex Female Smoking Status No Information Chief Complaint And Reason For Visit No Information Reason For Referral Reason For Referral No Information History Of Present Illness Encounter Date Complaint History Of Prese nt Illness No Information Functional Status Date Functional Assessmen t No Information Instructions Date Instruction Additional Infor mation No Information Assessments Type Assessment Date No Information Patient Care Teams Name Effective Dates (start - stop) Status Members No Information
--- NOTE | ~2025-03-16 | MMUS_ITS ---
CORRECTED REPORT corrected examination description to JOSE M pal ponce implant RT w meliza [facility] 03/16/2025 This report was recreated on 03/16/2025. Original report was OZOOLOGY TEACHER EXAMINATION: JOSE M pal ponce implant RT w meliza, US breast RT limited HISTORY: Follow-up right breast mass TECHNIQUE: Additional 3-D tomosynthesis images of the right breast were performed and synthetic 2-D images were generated. CAD analysis was submitted and interpreted. High resolution Limited right breast ultrasound was performed. COMPARISON: Comparison to multiple prior studies sequentially, with oldest reviewed study dated 10/30/2021. BREAST PARENCHYMAL COMPOSITION: Not dense: There are scattered areas of fibroglandular density. FINDINGS: MAMMOGRAPHIC FINDINGS: There is an enlarging mass in the lateral aspect of the right breast at approximately 9:00 position, middle-posterior third. ULTRASOUND: Limited right breast ultrasound: At 9:00, 9 cm from the nipple there is a 12 mm lymph node thickening measuring 3.4 mm, consider abnormal. IMPRESSION: 1. Abnormal pathologic lymph node of the right breast at 9:00, 9 cm from the nipple measuring 12 mm. 2. Ultrasound-guided biopsy recommended. BI-RADS category 4, suspicious findings. Reviewed, dictated and finalized at location I. OZOOLOGY TEACHER IMPRESSION: 1. Abnormal pathologic lymph node of the right breast at 9:00, 9 cm from the ni pple measuring 12 mm. 2. Ultrasound-guided biopsy recommended. BI-RADS category 4, suspicious findings.
--- OUTSIDE RECORDS SUMMARY | 2025-03-16 08:21 | XMS_ITS | Clinical Summary ---
Author Organization [facility] Medical Office Building B Address [address] [place] [address] Care Team Providers Care Merchandising Intern Name Role Phone Maikol Najera DO Primary [...] 1 4 Active ondansetron (ZOFRAN) 4 mg tabletIndicati ons:Prevention of Post-Operative Nausea and Vomiting Take 1 tablet (4 mg total) by mouth every 6 (six) hours as needed for nausea or vomiting 30 tablet 1 4 Active amoxicillin 500 mg tablet/capsule TAKE 4 CAPSULES BY MOUTH FOR 1 DOSE ONE HOUR PRIOR TO DENTAL PROCEDURE 4 tablet/capsu le 3 5 Active HYDROcodone-ac etaminophen (NORCO) 10-325 mg per tablet Take 1 tablet by mouth every 8 (eight) hours as needed for pain 20 tablet 5 Active suzetrigine (Journavx) 50 mg tablet Take 1 tablet (50 mg total) by mouth every 12 (twelve) hours 60 tablet 5 02/18/20 25 Active Problems Problem Noted Date Diagnosed Date [...] (04/27/2022): Added automatically from request for surgery [id number] Overweight 03/14/2022 Sjogren's syndrome 03/14/2022 Fibromyalgia 07/04/2020 Migraine 07/04/2020 Acute upper respiratory infection 08/22/2006 Anemia 06/14/2006 Anxiety 06/04/2006 Joint pain 06/03/2006 Encounters Date Type Department Care Team Description 01/18/2025 3:30 PM CDT Office Visit [facility] Medical Group Orthopedic and Sports Medicine [address] [place] [phone] Santi Hagen PA Primary osteoarthritis of left [...] CDT Respiratory Rate 18 06/15/2024 9:12 AM 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 Oxygen Saturation 95% 12/25/2023 11:02 AM CDT [...] season) 2024 07/20/2020 Influenza Vaccine (#1) 2024 , 04/06/2019, 01/22/2018, Additional history exists Pneumococcal vaccine <65 Aged Out No longer eligible based on patient's age to complete this topic Medical Devices Implanted Type Area Sand Tester Device Identifier Shelf Expiration Date Model / Serial / Lot Plate N/A: Neck [employer] Attune Fb Tib Base Sz 4 Por [id number] - [id number] Implanted:Qty: 1 on 12/24/2023 by Loc Angulo MD at [facility] Right: Knee [employer] 11/12/2033 [id number] / / [id number] Dep[employer] Attune Cruciate Retain Cementless Knee Right 5 Narrow Component [id number] - [id number] Implanted:Qty: 1 on 12/24/2023 by Loc Angulo MD at [facility] Right: Knee [employer] 01/13/2032 [id number] / / [id number] [employer] Insert Tibial Knee Fixed Rm Posterior Stabilized Attune 6mm Size 5 Polyethylene [id number] - [id number] Implanted:Qty: 1 on 12/24/2023 by Loc Angulo MD at [facility] Right: Knee [employer] 05/15/2031 [id number] / / [id number] Procedures Procedure Name Priority Date/Time Associated Diagnosis Comments [place] ARTHROCENTESIS ASPIR&/INJ MAJOR JT/BURSA W/O US Routine 01/18/2025 3:30 PM CDT Primary osteoarthritis of left knee from Last 3 Months Results * IN ARTHROCENTESIS ASPIR&/INJ MAJOR JT/BURSA W/O US (01/18/2025 [...] Final Result from Last 3 Months Insurance [facility] O[facility] BLUE ACC CHOICE OOS Member Subscriber Plan / Payer (Ef fective 2024-Present) Name:Janell Schwab Relation to Subscriber:Self Name:Janell Schwab Payer ID:[id number] (NAIC) Type:[facility] Address: [id number] [place] [id number] [employer] Advance Directives For more information, please contact: [phone] * Full Code (Latest Code Status on File) Date Activated Date Inactivated Comments 12/24/2023 2:52 PM 12/25/2023 7:50 PM Care Teams Merchandising Intern Relationship Specialty Start Date End Date Maikol Najera DO [address] [place] [address] PCP - General Family Medicine 03/22/22 Varsha Gilliam PA [address] [place] [address] [address] [place] [address] Physician On Line Csr Orthopedic Surgery 05/10/22 Santi Hagen PA [address] [place] [address] [address] [place] [address] Physician On Line Csr Orthopedic Surgery 12/25/23
== END 2025-03-16 08:18 | disposition home or self-care (01) ==
PROVIDERS: PCP Nurse Practitioner Family; Visit Provider Nurse Practitioner Family
DX: R92.8 Other abnormal and inconclusive findings on diagnostic imaging of breast (principal)
CPT/HCPCS: 76642; 77061; 77065; G0279

== ENCOUNTER 2025-03-18 08:06 | Outpatient (CLI) | payer BC, OTHER, SELFPAY ==
--- NOTE | ~2025-03-18 | MMUS_ITS ---
PROCEDURE(S): Ultrasound guided biopsy breast lymph node axilla on the right INDICATION(S): Lymph node with cortical thickening on the right COMPARISON(S): March 16 and February 09 TECHNIQUE/FINDINGS: Informed consent was obtained. Under sterile conditions, 1% lidocaine was injected as local anesthetic. Lidocaine with epinephrine was utilized for more deep anesthesia. A skin new was made with a scalpel, and a coaxial was placed with ultrasound guidance. Following that, multiple samples were obtained with a 14-gauge spring- loaded biopsy needle and sonographic guidance. No complications occurred. The patient tolerated the procedure well. A biopsy marker was placed in the biopsy bed at the end of the procedure. A two-view mammogram demonstrates the biopsy marker in the expected location. IMPRESSION: Status post ultrasound-guided core biopsy. Pathology is pending. Reviewed, dictated and finalized at location C. TIFIER HORSE IMPRESSION: Status post ultrasound-guided core biopsy. Pathology is pending.
--- OUTSIDE RECORDS SUMMARY | 2025-03-18 08:12 | XMS_ITS | Clinical Summary ---
Author Organization [facility] Medical Office Building B Address [address] [place] [address] Care Team Providers Care Forecast Analyst Name Role Phone Maikol Najera DO Primary [...] (04/27/2022): Added automatically from request for surgery [id number] Overweight 03/14/2022 Sjogren's syndrome 03/14/2022 Fibromyalgia 07/04/2020 Migraine 07/04/2020 Acute upper respiratory infection 08/22/2006 Anemia 06/14/2006 Anxiety 06/04/2006 Joint pain 06/03/2006 Encounters Date Type Department Care Team Description 01/18/2025 3:30 PM CDT Office Visit [facility] Medical Group Orthopedic and Sports Medicine [address] [place] [phone] Satni Hagen PA Primary osteoarthritis of left knee [...] CDT Respiratory Rate 18 06/15/2024 9:12 AM 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 Oxygen Saturation 95% 12/25/2023 11:02 AM CDT [...] this topic Medical Devices Implanted Type Area Floor Steward/Stewardess Device Identifier Shelf Expiration Date Model / Serial / Lot Plate N/A: Neck [employer]uy [employer] Attune Fb Tib Base Sz 4 Por [id number] - [id number] Implanted:Qty: 1 on 12/24/2023 by Loc Angulo MD at [facility] Right: Knee [employer] 11/12/2033 [id number] / / [id number] Dep[employer] Attune Cruciate Retain Cementless Knee Right 5 Narrow Component [id number] - [id number] Implanted:Qty: 1 on 12/24/2023 by Loc Angulo MD at [facility] Right: Knee [employer] 01/13/2032 [id number] / / [id number] [employer] Insert Tibial Knee Fixed Rm Posterior Stabilized Attune 6mm Size 5 Polyethylene [id number] - [id number] Implanted:Qty: 1 on 12/24/2023 by Loc Angulo MD at [facility] Right: Knee [employer] 05/15/2031 [id number] / / [id number] Procedures Procedure Name Priority Date/Time Associated Diagnosis Comments [place] ARTHROCENTESIS ASPIR&/INJ MAJOR JT/BURSA W/O US Routine 01/18/2025 3:30 PM CDT Primary osteoarthritis of left knee from Last 3 Months Results * [place] ARTHROCENTESIS ASPIR&/INJ MAJOR JT/BURSA W/O US (01/18/2025 [...] Final Result from Last 3 Months Insurance [facility] OOS BLUE ACC CHOICE OOS Member Subscriber Plan / Payer (Ef fective 2024-Present) Name:Janell Schwab Relation to Subscriber:Self Name:Janell Schwab Payer ID:[id number] (NAIC) Type:[facility] Address: [address] [place] [id number] [employer] Advance Directives For more information, please contact: [phone] * Full Code (Latest Code Status on File) Date Activated Date Inactivated Comments 12/24/2023 2:52 PM 12/25/2023 7:50 PM Care Teams Forecast Analyst Relationship Specialty Start Date End Date Maikol Najera DO [address] [place] [address] PCP - General Family Medicine 03/22/22 Varsha Gilliam PA [address] [place] [address] [address] [place] [address] Physician Workers Compensation Manager Orthopedic Surgery 05/10/22 Santi Hagen PA [address] [place] [address] [address] [place] [address] Physician Workers Compensation Manager Orthopedic Surgery 12/25/23
--- NOTE | 2025-03-18 10:46 | S_PTH ---
PATIENT: Janell Schwab LOC: [facility] U#:[id number] AGE/SX: 59/F ROOM: RE03/18/[address]: Carlos Perry APRN : [id number] BED: DIS: 03/18/2025 SPEC #: [id number] RECD: 03/18/25 12:44 STATUS: YOVANA REGreta #: [id number] ROSS: 03/18/25 10:[address]: Carlos Perry DEPT: [facility] Surgical RECD BY: Eliana Mayfield Tissues: A - Breast Biopsy Procedures: Hematoxylin and Eosin Stain Gross and Microscopic Level 4
== END 2025-03-18 08:07 | disposition home or self-care (01) ==
LOC: ANHFOHIMG 08:06
PROVIDERS: PCP Nurse Practitioner Family; Visit Provider Nurse Practitioner Family
DX: R92.8 Other abnormal and inconclusive findings on diagnostic imaging of breast (principal); R59.0 Localized enlarged lymph nodes
CPT/HCPCS: 38505; 76942; 77065; 88305; A4648

== ENCOUNTER 2025-03-19 02:16 | Day surgery (SDC) | payer BC, OTHER, SELFPAY ==
--- NOTE | 2025-03-15 14:08 | PC.NURSE ---
[facility] has started construction of its new state of the art ER which will open Spring 2026. With this, we anticipate parking may be a challenge for some our surgical patients and families. Parking spaces are limited but are available for all Surgical, obstetrics, and ER patients sharing this lot. If you arrive and find you are having a hard time finding a parking space, please note that we understand the challenges, please drive around the hospital and park near Hospital Entrance 1. When you enter this entrance, you can ask a volunteer to direct or take you back to the surgical waiting area to check in. We appreciate everyone?s understanding of these expected challenges while we build for your future. Report to the Outpatient Waiting Room, entrance under the green pavilion located off [address], at time ___9:30 AM____ on date __03/19/25 . Planned Procedure Time: _11:30 AM .? Time changes happen often and if your time is changed the preop area will call you the afternoon before. - You and your visitor will be asked to self-screen and do not enter if you have any COVID symptoms. Please call surgeon if you need to reschedule. - A mask is optional within the hospital at this time. NOTHING TO EAT AFTER MIDNIGHT , NOTHING TO DRINK 8 HOURS PRIOR TO SURGERY PER DR DOZIER Take only the following medications with a SIP of water on the morning of surgery: ___METOPROLOL_,LORAZEPAM, DO NOT STOP ANY OF YOUR OTHER PRESCRIPTION MEDICATIONS PRIOR TO SURGERY EXCEPT THE FOLLOWING Hold all vitamins and supplements for 3 days per anesthesiologist.LAST DOSE 03/15/25 Medications to discontinue per physician NONE Please no make-up, nail panamanian, hairspray, perfume, deodorant, or body powder the day of surgery.? No jewelry (including any body piercings) or valuables the day of surgery, leave them at home.? Please take a shower or bath the night before, or the morning of, surgery with an antibacterial soap.? Wear comfortable, loose fitting clothing.? Children are encouraged to wear pajamas. - Jewelry must be removed prior to entering the operating room.? Rings and piercings that are not removed may be cut off. - The hospital will not accept responsibility for valuables.? - Please leave all valuables, including medications, at home the day of surgery. If you are going home after surgery, a licensed trailer tank truck driver must drive you home.? - NO public transportation without another adult if you receive anesthesia. - We recommend that an adult stay with you for 24 hours following discharge. - We also recommend that you do not drive, make important decision, drink alcoholic beverages, or take any drugs that were not prescribed by your health care provider for at least 24 hours after your discharge time. For Pediatric surgeries, we recommend two adults accompany the child home. Follow any additional instructions given to you from your surgeon. Telephone instructions given to __PATIENT and asked if any additional questions and then verbalized understanding. Patient advised to call surgeon office or pre surgery nurse liaison [phone] if any additional questions.
[2025-03-15 14:28] VITALS: BMI 35.5
--- NOTE | 2025-03-19 06:55 | PM.HPGS ---
History of Present Illness History of Present Illness Chief complaint: right middle finger cyst Narrative: Patient seen and examined in pre-operative holding area. No interval change in medical history or symptoms. Patient recalls previous discussion of benefits and alternatives to procedure. Continues to desire to proceed with right middle finger mucous cyst excision . Reviewed procedure, post-op expectations and risks including but not limited to bleeding, infection, injury to tendon/nerve/vessel, decreased hand function, stiffness, RSD, no change or worsening of symptoms, recurrence. I discussed the possible use of assistants and their participation in the case. Patient stated understanding and signed the consent form wishing to proceed. Review of Systems Review of Systems: All systems reviewed & are unremarkable except as noted in HPI and below PMFSH Past Medical History Medical History (Updated 03/16/25 @ 13:16 by Carlos Perry APRN) Insomnia Vitamin D deficiency Prediabetes Elevated cholesterol with elevated triglycerides Hypertension Depression Severe anxiety with panic Obesity Diarrhea Right leg pain Surgical History Surgical History History of total right knee replacement H/O colonoscopy (09/26/23) normal History of foot surgery right H/O: section H/O cervical discectomy History of hysterectomy Only has right ovary Family History Family History Father Stomach cancer Social History Social History Social History: Caffeine-coffee Smoking status: Never smoker Second hand tobacco smoke exposure: No Alcohol intake: current Drinks per week: 1 Alcohol use details: social Substance use: never Substance use type: does not use Lack of Transportation: No Lack of Food: Never True Current Housing: I Have Housing Concerned About Future Housing: No Difficulty Paying Gas/Electric Bills: No Difficulty Paying for Meds: No Currently Unemployed: YES Education: Bachelor's Degree Difficulty w/ Childcare or Family Care: No Living arrangements: with family Additional living arrangements comments: Lives with fiance Occupation/Education: unemployed Additional occupation/education comments: laid off Gender identity (if verbalized by the patient): Female Sexual Orientation (if Verbalized by the Patient): Straight or Heterosexual Spiritual care concerns: No Meds Home Medications and Allergies Home Medications ?Medication ?Instructions ?Recorded ?Confirmed ?Type sumatriptan succinate 100 mg tablet 100 mg PO PRN PRN migraine headache 06/19/24 03/15/25 History venlafaxine 75 mg capsule,extended See Rx Instructions .Route 12/15/24 03/15/25 Rx release 24 hr .COMPLEX #90 caps quetiapine 400 mg tablet See Rx Instructions .Route 01/04/25 03/15/25 Rx .COMPLEX #30 tabs lorazepam 1 mg tablet 1 mg PO DAILY PRN anxiety #20 tabs 01/05/25 03/15/25 Rx metoprolol tartrate 50 mg tablet See Rx Instructions .Route 01/25/25 03/15/25 Rx .COMPLEX #180 tabs amphetamine 10 mg tablet, 10 mg PO QAM 03/15/25 03/15/25 History immediate and extended release 24 hour biotin 2,500 mcg capsule 2,500 mcg PO DAILY 03/15/25 03/15/25 History cholecalciferol (vitamin D3) 50 2,000 unit PO DAILY 03/15/25 03/15/25 History mcg (2,000 unit) capsule suzetrigine 50 mg tablet (Journavx) 50 mg PO PRN 03/15/25 03/15/25 History venlafaxine 150 mg 150 mg PO HS 03/15/25 03/15/25 History capsule,extended release 24 hr Allergies Allergy/AdvReac Type Severity Reaction Status Date / Time No Known Allergies Allergy Verified 03/15/25 14:08 Exam Narrative: unchanged Assessment and Plan Assessment and plan (1) Cyst of joint of right hand: Code(s): M25.841 - Other specified joint disorders, right hand Status: Acute Assessment and Plan: cont as above (2) Digital mucous cyst: Code(s): M67.449 - Ganglion, unspecified hand Status: Acute
--- NOTE | 2025-03-19 06:55 | W.PM.PROC2 ---
Procedure Note - Detailed Date of Procedure 03/19/25 Pre-op Diagnosis right middle finger cyst Post-op Diagnosis Same Procedure Performed R MF mucous cyst excision and adjacent tissue transfer Surgeon Ambar Carlton MD Test Deskman wil june pa-c Anesthesia MAC Description of Procedure INFORMED CONSENT: The patient was seen and examined and marked in the pre-op area.? The patient signed the consent form. PROCEDURE IN DETAIL:The patient taken back to OR on the stretcher in supine position. Time out performed with anesthesia, surgeon and staff agreeing on patient's name site and surgery to be performed SCDs were placed on the lower extremities and inflated. A tourniquet was placed on {right/} upper extremity and antibiotics given IV After anesthesia administered sedation I injected {3}cc 1%lido and 0.5% marcaine plain for digital block in the palm The?{right upper extremity}?was prepped and draped in sterile fashion the??{right upper extremity} was? exsanguinated with Esmarch bandage and tourniquet inflated to 250mmHg I proceeded with making an elliptical incision around the affected skin overlying the right middle finger mucous cyst through skin and dermis with 15 blade scalpel. skin flaps were elevated sharply and I proceeded with dissection around the cyst off the dorsal dipjoint capsule. Bipolar cautery was used around the base of the cyst. I irrigated with normal saline. I was unable to close the skin defect primarily with wide undermining so I extended my incision proximally and distally to create a small rotation advancement flap that allowed tension free closure with 4-0 chromic. A dressing of xeroform, 4x4, carmen, and tube gauze was applied after the tourniquet was let down noting the hand was warm and well perfused. The patient was then awaken from anesthesia and transferred to the recovery room in stable condition.? Complications - none EBL- 0cc Disposition - home in stable condition Wil June PA-C was essential for positioning, retraction, closure and dressing placement. [facility] [place] Billing Surgery - Charge Forward: Surgery Billing ([phone] [id number] same for wil adding )
[2025-03-19 10:00] VITALS: BP 142/85; PULSE 81; RESP 16; TEMP 36.4; O2SAT 98
[2025-03-19] MEDS: LACTATED RINGERS 1,000 ML 30 ML IV CONT (10:00)
[2025-03-19] MEDS: ACETAMINOPHEN 500 MG TABLET 1000 MG PO (10:00)
--- NOTE | 2025-03-19 10:49 | WPDANESEPPF ---
Anes - Initial Pre Proc Eval Procedure: Operation Date: 03/19/25 11:30 Proposed Procedures p Right Middle Finger Mucous Cyst Excision - Ambar Carlton MD Date/Time: 03/19/25 10:49 Surgeon: Ambar Carlton MD Pre Op Diagnosis: right middle finger cyst Patient Data Age: 59 Gender: F Height: 1.68 m Weight: 99.8 kg Allergies Allergy/AdvReac Type Severity Reaction Status Date / Time No Known Allergies Allergy Verified 03/19/25 10:53 Home Medications ?Medication ?Instructions ?Recorded ?Confirmed ?Type sumatriptan succinate 100 mg tablet 100 mg PO PRN PRN migraine headache 06/19/24 03/15/25 History venlafaxine 75 mg capsule,extended See Rx Instructions .Route 12/15/24 03/15/25 Rx release 24 hr .COMPLEX #90 caps quetiapine 400 mg tablet See Rx Instructions .Route 01/04/25 03/15/25 Rx .COMPLEX #30 tabs lorazepam 1 mg tablet 1 mg PO DAILY PRN anxiety #20 tabs 01/05/25 03/15/25 Rx metoprolol tartrate 50 mg tablet See Rx Instructions .Route 01/25/25 03/15/25 Rx .COMPLEX #180 tabs amphetamine 10 mg tablet, 10 mg PO QAM 03/15/25 03/15/25 History immediate and extended release 24 hour biotin 2,500 mcg capsule 2,500 mcg PO DAILY 03/15/25 03/15/25 History cholecalciferol (vitamin D3) 50 2,000 unit PO DAILY 03/15/25 03/15/25 History mcg (2,000 unit) capsule suzetrigine 50 mg tablet (Journavx) 50 mg PO PRN 03/15/25 03/15/25 History venlafaxine 150 mg 150 mg PO HS 03/15/25 03/15/25 History capsule,extended release 24 hr hydrocodone 5 mg-acetaminophen 325 1 tablet PO Q6H PRN pain #8 tabs 03/19/25 Rx mg tablet Patient hx anesthesia problems: none Family hx anesthesia problems: none Results Review: All pre-operative results and documents have been reviewed as part of the pre-operative evaluation. [facility] Past Medical History Medical History (Updated 03/16/25 @ 13:16 by Carlos Perry APRN) Insomnia Vitamin D deficiency Prediabetes Elevated cholesterol with elevated triglycerides Hypertension Depression Severe anxiety with panic Obesity Diarrhea Right leg pain Surgical History Surgical History History of total right knee replacement H/O colonoscopy (09/26/23) normal History of foot surgery right H/O: section H/O cervical discectomy History of hysterectomy Only has right ovary Family History Family History Father Stomach cancer Social History Social History Social History: Caffeine-coffee Smoking status: Never smoker Second hand tobacco smoke exposure: No Alcohol intake: current Drinks per week: 1 Alcohol use details: social Substance use: never Substance use type: does not use Lack of Transportation: No Lack of Food: Never True Current Housing: I Have Housing Concerned About Future Housing: No Difficulty Paying Gas/Electric Bills: No Difficulty Paying for Meds: No Currently Unemployed: YES Education: Bachelor's Degree Difficulty w/ Childcare or Family Care: No Living arrangements: with family Additional living arrangements comments: Lives with fiance Occupation/Education: unemployed Additional occupation/education comments: laid off Gender identity (if verbalized by the patient): Female Sexual Orientation (if Verbalized by the Patient): Straight or Heterosexual Spiritual care concerns: No Anes - Eval Final PreProcedure Day of Procedure 03/19/25 10:49 Patient weight: obese Heart: regular rate and rhythm Lungs: clear to auscultation Airway: Mallampati scale class III Neurological: alert and oriented Last oral intake: >/= 8 hours ASA classification: III Emergent: no Anesthetic plan: proceed Anesthesia type and monitoring: general GIVS and standard monitoring Results Review: All pre-operative results and documents have been reviewed as part of the pre-operative evaluation. Informed Consent: The patient's anesthetic plan and its attendant risks and benefits were discussed with the patient/family/POA. Questions were solicited and answers provided to the satisfaction of the patient/family/POA.
[2025-03-19] MEDS: LIDOCAINE 1% LOCAL INJ 10 ML VIAL 5 ML INFILTRATE (11:27)
[2025-03-19] MEDS: ceFAZolin 2 GM in SODIUM CHLORIDE 0.9% IV 50 ML 100 ML IVPB (11:42)
[2025-03-19] MEDS: BUPivacaine HCL 0.5% 10 ML AMP 5 ML INFILTRATE (11:42)
--- NOTE | 2025-03-19 11:51 | S_PTH ---
PATIENT: Janell Shcwab LOC: [facility] U#:[id number] AGE/SX: 59/F ROOM: RE03/19/[address]: Ambar Carlton MD : 1965 BED: DIS: 03/19/2025 SPEC #: [id number] RECD: 03/19/25 13:39 STATUS: YOVANA REGreta #: [id number] ROSS: 03/19/25 11:[address]: Ambar Carlton DEPT: [facility] Surgical RECD BY: Eliana Mayfield ENTERED: 03/19/25 13:40 SP TYPE: Surgical OTHR DR: Carlos Perry APRN Tissues: A - Cyst Procedures: Hematoxylin and Eosin Stain Gross and Microscopic Level 4
[2025-03-19 11:59] VITALS: BP 123/67; PULSE 67; RESP 14; O2SAT 96
[2025-03-19 12:30] VITALS: BP 125/89; PULSE 67
[2025-03-19 13:00] VITALS: BP 130/75; PULSE 66
== END 2025-03-19 13:18 | disposition home or self-care (01) ==
PROVIDERS: PCP Nurse Practitioner Family; Visit Provider Plastic Surgery
PROC: (CPT 26160; principal; 2025-03-19 11:30)
DX: L85.8 Other specified epidermal thickening (principal); E66.9 Obesity, unspecified; Z68.37 Body mass index [BMI] 37.0-37.9, adult
CPT/HCPCS: 26160; 14040; 88305; J0690; A9270; J2003; J2250; J2590; J2704; J3010; J7120